=== PATIENT | male | born 1975 | race Caucasian/White ===

== ENCOUNTER → 2016-12-20 | Outpatient (CLI) | payer MEDICARE, OTHER ==
[~2016-12-20] MED LIST: /ACETCOD2T PO; /ROPI5TA PO; /TRAZ10TA PO; ADVAIR; ADVAIR INH; ALLE25CA OR; AMBI10TA OR; AMIT25TA2; AMIT25TA2 OR; ATOR40TA PO; BABY81CH OR; BACL10TA2 OR; BUPR15TA OR; BYDU1INJ SC; CELE40TA; CEPH500C OR; CLAR5CHW OR; CLON0.2T; CLON0.2T OR; COLA100C2 OR; CYCL10TA PO; CYCL10TA3 PO; DIAZ10TA2 OR; DILA4TAB PO; EFFE150C OR; EFFE75CA75 PO; FLEXERIL; FLEXERIL PO; GABA100C PO; GABA300C2 PO; GLIPIZIDE PO; HYDR25TA6; HYDR25TA6 OR; HYDR4TAB; HYDR4TAB PO; IBUP600T OR; LANTINJ4 SC; LISI40TA OR; META800T82 PO; METF500T4 OR; MIRA0.5T PO; MORP15TA2 PO; MORP15TA4 OR; MORP20CA PO; MORP30TA4 OR; MS C; MS C30TA2; MS IR OR; OXYC10TA97 OR; PERC5TAB8 PO; PRIL20CA OR; SKEL800T5 PO; SOMA350T; SOMA350T OR; TRAM50TA2; TRAM50TA2 OR; TRIC145T19 OR; TYLENOL #3; VALI5TAB PO; VICODINES TAB OR; VOLT1GEL EX; endocet PO; kadian PO; sudafed OR
--- NOTE | 2016-12-20 23:41 | ECWPNPC ---
PATIENT NAME: SERGIO WHITE : 1975 GENDER: MALE VISIT DATE: 12/20/2016 DISCHARGE DATE: 12/20/16 1051 VISIT LOCKED DATE TIME: PHYSICIAN: ZAC BENTON RESOURCE: ZAC BENTON REASON FOR APPOINTMENT 1. BACK HISTORY OF PRESENT ILLNESS HISTORY OF PRESENT ILLNESS: PAIN THE PATIENT DESCRIBES THE PAIN... FALL RISK SCREENING: SCREENING :NO FALLS IN THE PAST YEAR TODAY'S VISIT: NOTES: RATES PAIN TODAY 6/10. HAS BEEN HAVING INCREASED PAIN OVER LAST 3 WEEKS. IS USING HIS PAIN MEDS INFREQUENTLY , AND NO MORE THAN 2 PER DAY. NOTES PAIN IS CONSTANT ACROSS THE LOW BACK AND RADIATES TO THE HIPS. NOTES THAT PROLONGED STANDING OR WALKING INCREASE THE PAIN. STAYES THAT THIS PAIN SIGNIFICANTLY IMPROVED FORLLOWING RADIOFREQUENCY. CURRENT MEDICATIONS TAKING MAGNESIUM 65 MG TABLET 2 ORALLY TWICE DAILY TAKING ASPIR-81 81 MG TABLET DELAYED RELEASE 1 TABLET ORALLY ONCE A DAY TAKING LISINOPRIL 40 MG TABLET 1 TABLET ORALLY ONCE A DAY TAKING METFORMIN HCL 750 MG TABLET 1 TABLET WITH MEALS ORALLY BID TAKING EFFEXOR XR 37.5 MG CAPSULE EXTENDED RELEASE 24 HOUR 1 CAPSULE WITH FOOD ORALLY ONCE A DAY TAKING GLIPIZIDE 10 MG TABLET 1 TABLET ORALLY ONCE A DAY TAKING VENTOLIN HFA 108 (90 BASE) MCG/ACT AEROSOL SOLUTION 2 PUFFS NEEDED INHALATION EVERY 4 HRS TAKING TOUJEO SOLOSTAR 300 UNIT/ML SOLUTION PEN-INJECTOR 110 UNITS SUBCUTANEOUS ONCE DAILY TAKING CLARITIN 10 MG TABLET 1 TABLET ORALLY ONCE A DAY TAKING AMBIEN 10 MG TABLET 1 TABLET AT BEDTIME NEEDED ORALLY QHS TAKING LANTUS SOLOSTAR 100 UNIT/ML SOLUTION PEN-INJECTOR 100 UNITS SUBCUTANEOUS DAILY TAKING TIZANIDINE HCL 4 MG TABLET 1 TABLET NEEDED ORALLY THREE TIMES A DAY TAKING TYLENOL/CODEINE #3 300-30 MG TABLET 1 TABLET ORALLY EVERY 6 HRS PRN PAIN MDD=4 TAKING PRAMIPEXOLE DIHYDROCHLORIDE 1.5 MG TABLET 1 TABLET ORALLY TAKE AT 7 PM AND 11 PM MDD=2 TAKING POTASSIUM 99 MG TABLET 1 TABLET ORALLY ONCE A DAY NOT-TAKING ZOLPIDEM TARTRATE 10 MG TABLET 1 TABLET ORALLY AT BEDTIME MDD=1 NOT-TAKING COLACE 100 MG CAPSULE 1 CAPSULE NEEDED ORALLY TWO TIMES A DAY MEDICATION LIST REVIEWED AND RECONCILED WITH THE PATIENT PAST MEDICAL HISTORY DIABETES CHRONIC BACK PAIN HYPERTENSION RYLAN ASTHMA ALLERGIES N.K.D.A. SOCIAL HISTORY GENERAL: TOBACCO USE ARE YOU A:NONSMOKER LEARNING BARRIERS / SPECIAL NEEDS ORIENTED TO PLAN OF CARE: PATIENT, PAIN MANAGEMENT PATIENT, ORIENTED TO PLAN OF CARE: PATIENT, PAIN MANAGEMENT PATIENT. NEW PATIENT PAIN DIARY TODAY'S VISITNOTES FROM 0-10, WHAT LEVEL IS YOUR PAIN TODAY?0 PAIN CLINIC PFS, CLERGY, PUBLIC HEALTH REFERRALS PFS REFERRAL NEEDED?NO CLERGY REFERRAL NEEDED?NO PUBLIC HEALTH REFERRAL NEEDED?NO WAS THE PROVIDER NOTIFIED OF ANY PERTINENT INFO?NO PFS REFERRAL NEEDED?NO CLERGY REFERRAL NEEDED?NO PUBLIC HEALTH REFERRAL NEEDED?NO WAS THE PROVIDER NOTIFIED OF ANY PERTINENT INFO?NO REVIEW OF SYSTEMS CONSTITUTIONAL: ANY CHANGE IN YOUR MEDICAL CONDITION? NO . CHILLS NO . FEVER NO . INFECTION: DO YOU HAVE NEW INFECTIONS? NO . DO YOU HAVE HISTORY OF MRSA? NO . MUSCULOSKELETAL: ANY NEW PATTERNS OF PAIN OR NUMBNESS? NO . GASTROENTEROLOGY: ANY NEW CHANGE IN BOWEL CONTROL? NO . GENITOURINARY: ANY NEW CHANGE IN BLADDER CONTROL? NO . IS THERE A CHANCE YOU COULD BE ? NO . HEMATOLOGY/LYMPH: DO YOU TAKE ANY BLOOD THINNERS? (FOR EXAMPLE- COUMADIN, PLAVIX, AGGRENOX, PLATEL, PRADAXA, OR XARELTO) NO . WHEN WAS YOUR LAST DOSE? DATE: TIME: . NEUROLOGY: HAVE YOU FALLEN IN THE PAST 6 MONTHS? NO . ANY NEW EXTREMITY NUMBNESS OR WEAKNESS? NO . CARDIOLOGY: DO YOU HAVE A PACEMAKER OR DEFIBRILLATOR? NO . RESPIRATORY: SLEEP APNEA FINALLY RECEIVING REATMENT WITH CPAP. OLERATING WELL - SLEEPING THROUGH THE NIGHT AND NO FURTHER EPISODES OF SUDDEN SLEEP IN THE DAY . HAVE YOU BEEN SICK IN THE PAST WEEK? NO . FEVER NO . FLU LIKE SYMPTOMS? NO . CPAP YES - HAVING SOME TROUBLE WITH SKIN IRRITATION SECONDARY TO CPAP MSK . COUGH NO . INTEGUMENTARY: DO YOU HAVE ANY RASHES OR OPEN SORES? NO . ALLERGIC/IMMUNO: ARE YOU ALLERGIC TO SHELLFISH OR IV DYE? NO . ANY NEW ALLERGIES? NO . PSYCHIATRIC: DO YOU HAVE THOUGHTS OF HURTING YOURSELF OR SOMEONE ELSE? NO . ARE YOU ABUSED, NEGLECTED, OR IN AN UNSAFE ENVIRONMENT? NO . ENDOCRINOLOGY: ARE YOU DIABETIC? YES . OTHER: DO YOU NEED ANY PRESCRIPTIONS? NO . IF YES, PLEASE LIST: ____ . ANY NEW PROBLEMS WITH YOUR MEDICATIONS? NO . WHEN DID YOU LAST EAT? ____ . WHEN DID YOU LAST DRINK? ____ . WHAT DID YOU LAST DRINK? ____ . NAME OF PERSON DRIVING YOU HOME? ____ . DO YOU HAVE ANY OTHER QUESTIONS OR CONCERNS NO . REVIEWED BY: PROVIDER: ZAC TSAI . VITAL SIGNS WT 387 LBS, HT 76.5 IN, BMI 46.49 INDEX, BP 169/98 MM HG, HR 109 /MIN, RR 20 /MIN, TEMP 98.0 F, OXYGEN SAT % 96%, NA INITIALS SC 10:14. EXAMINATION GENERAL EXAMINATION: PSYCHALERT , ORIENTED X 3 , TALKATIVE. VERY ALERT TODAY. FACE:REDNESS OVER CHEEK L>R AND HEALING LESION LEFT CHECK. LUNGS:CLEAR TO AUSCULTATION BILATERALLY. HEART:HEART RATE REGULAR. MUSCULOSKELETAL:ABLE TO STAND SLOWLY. POSTURE UPRIGHT., TRIGGER POINTS:, ELICITED WITH PALPATION OVER LUMBAR PARAVERTEBRAL MUSCLES AND INTO THE SACRUM. RESTRICTION OF ROM IN THIS AREA. GAIT STIFF, ANTALGIC. NO FOOT DROP. POINT TENDERENESS OVER LUMBAR FACETS AND PARAVERTEBRAL MUSCLES., L>R. 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 RECOMMEND REMOVING ALL THROW RUGS. 2. RECOMMEND NIGHT LIGHTS 3. RECOMMEND WEARING RUBBER SOLED SHOES AND TO NOT GO BAREFOOT. 4.. ADVISED TO CHANGE POSITION SLOWLY FROM SUPINE TO STANDING TO AVOID DIZZINESS. 5. ADVISED TO USE ASSISTIVE DEVICE SUCH CANE OR WALKER 6. USE LIFELINE SERVICES OR KEEP PORTABLE PHONE READILY AVAILABLE, CONTINUE USE OF CPAP WHICH IS IMPROVING DAYTIME WAKEFULNESS. #128 - SCREENING BMI AND F/U PLAN IN : BMI ABOVE NORMAL TODAY. DISCUSSED WITH PATIENT NUTRITIONAL FOOD CHOICES TO ASSIST WITH WEIGHT LOSS. RECCOMMENDED REDUCING SALT, SUGAR, SODA INTAKE. RECOMMEND INCREASE ACTIVITY TO INCLUDE WALKING ON A REGULAR BASIS. CLINICAL NOTES: ISTOP REGISTRY REVIEWED AND DEMNOSTRATES COMPLLIANCE. PROCEDURE CODES FA211 ESTABILISHED PATIENT [facility] FACILITY CHARGE W2777 BP SCR PRFRM RCMDD DEFIND SCR INTVL G8730 PAIN ASSESS POS TOOL F/U PLAN DOC 3016F PT SCRND UNHLTHY [place] USE 1124F ACP DISCUSS-NO DSCNMKR DOCD 1036F TOBACCO NON-USER 0518F FALL PLAN OF CARE DOCD G8427 DOC MEDS VERIFIED W/PT OR RE G8417 BMI >=30 CALCUATE W/FOLLOWUP 3288F FALL RISK ASSESSMENT DOCD DISPOSITION & COMMUNICATION FOLLOW UP ONE WEEK AFTER DIAGNOSTIC BLOCK (REASON: CHECK AUTH FOR DIAGNOSTIC LUMBAR FACET BLOCK LEFT) ELECTRONICALLY SIGNED BY JUANI DIALLO ON 12/20/2016 AT 11:57 AM EST DISCLAIMER : THIS IS A VISIT SUMMARY EXTRACTED FROM THE [employer] CHART. IT IS NOT A COPY OF THE [employer] PROGRESS NOTE. MASOOD
== END ==
LOC: M PAIN 10:00
PROVIDERS: ATTEND Nurse Practitioner Family
DX: Z09 Encounter for follow-up examination after completed treatment for conditions other than malignant neoplasm (principal); G89.29 Other chronic pain; M46.96 Unspecified inflammatory spondylopathy, lumbar region; M79.1 Myalgia; E11.9 Type 2 diabetes mellitus without complications; I10 Essential (primary) hypertension; G47.30 Sleep apnea, unspecified; J45.909 Unspecified asthma, uncomplicated; Z79.82 Long term (current) use of aspirin; Z79.84 Long term (current) use of oral hypoglycemic drugs; Z79.899 Other long term (current) drug therapy

== ENCOUNTER → 2017-01-13 | Outpatient (CLI) | payer MEDICARE, OTHER ==
[~2017-01-13] MED LIST changes: +BUPIVACAINE HCL 0.25% 30 ML VIAL As Ordered ONE; +ISOVUE-M 300 61% 15ML VIAL (Q9967) As Ordered ONE; +LIDOCAINE 1% SDV INJ 30 ML VIAL As Ordered ONE
--- NOTE | 2017-01-13 16:18 | REP ---
FACET BLOCK: The images were reviewed with Dr. Zee. The patient has a history of back pain. The portable C-Arm was provided in the OR for Dr. Stubbs for fluoroscopic guidance. Four intraoperative spot films were obtained for needle placement verification for left lumbar facet injection. The films are on the PACs system and are available for review. 21 seconds of fluoroscopy time was utilized for this procedure. Reviewed by RANCHO Wilder 01/13/2017 04:27 PEdited and Signed by Eleazar Zee MD 01/14/2017 01:14 P
--- NOTE | 2017-01-18 02:13 | ECWPNPC ---
PATIENT NAME: SERGIO WHITE : 1975 GENDER: MALE VISIT DATE: 01/13/2017 DISCHARGE DATE: 01/13/17 1019 VISIT LOCKED DATE TIME: PHYSICIAN: JEANNETTE WALL RESOURCE: JEANNETTE WALL REASON FOR APPOINTMENT 1. DIAGNOSTIC FACET CURRENT MEDICATIONS TAKING MAGNESIUM 65 MG TABLET 2 ORALLY TWICE DAILY, NOTES: 01-12-172199 TAKING ASPIR-81 81 MG TABLET DELAYED RELEASE 1 TABLET ORALLY ONCE A DAY, NOTES: 01-12-172199 TAKING LISINOPRIL 40 MG TABLET 1 TABLET ORALLY ONCE A DAY, NOTES: 01-12-172199 TAKING METFORMIN HCL 750 MG TABLET 1 TABLET WITH MEALS ORALLY BID, NOTES: 2199 TAKING EFFEXOR XR 37.5 MG CAPSULE EXTENDED RELEASE 24 HOUR 1 CAPSULE WITH FOOD ORALLY ONCE A DAY, NOTES: 01-12-17899 TAKING GLIPIZIDE 10 MG TABLET 1 TABLET ORALLY ONCE A DAY, NOTES: 01-12-17799 TAKING VENTOLIN HFA 108 (90 BASE) MCG/ACT AEROSOL SOLUTION 2 PUFFS NEEDED INHALATION EVERY 4 HRS, NOTES: 12-22-16899 TAKING TOUJEO SOLOSTAR 300 UNIT/ML SOLUTION PEN-INJECTOR 110 UNITS SUBCUTANEOUS ONCE DAILY, NOTES: 01-12-17799 TAKING CLARITIN 10 MG TABLET 1 TABLET ORALLY ONCE A DAY, NOTES: 01-12-17799 TAKING AMBIEN 10 MG TABLET 1 TABLET AT BEDTIME NEEDED ORALLY QHS, NOTES: 01-12-172199 TAKING LANTUS SOLOSTAR 100 UNIT/ML SOLUTION PEN-INJECTOR 100 UNITS SUBCUTANEOUS DAILY, NOTES: 01-12-171829 TAKING PRAMIPEXOLE DIHYDROCHLORIDE 1.5 MG TABLET 1 TABLET ORALLY TAKE AT 7 PM AND 11 PM MDD=2, NOTES: 01-12-172199 TAKING POTASSIUM 99 MG TABLET 1 TABLET ORALLY ONCE A DAY, NOTES: 01-12-172199 TAKING TIZANIDINE HCL 4 MG TABLET 1 TABLET NEEDED ORALLY THREE TIMES A DAY, NOTES: 01-12-172199 TAKING TYLENOL/CODEINE #3 300-30 MG TABLET 1 TABLET ORALLY EVERY 6 HRS PRN PAIN MDD=4, NOTES: 01-12-172199 NOT-TAKING ZOLPIDEM TARTRATE 10 MG TABLET 1 TABLET ORALLY AT BEDTIME MDD=1 NOT-TAKING COLACE 100 MG CAPSULE 1 CAPSULE NEEDED ORALLY TWO TIMES A DAY MEDICATION LIST REVIEWED AND RECONCILED WITH THE PATIENT PAST MEDICAL HISTORY DIABETES CHRONIC BACK PAIN HYPERTENSION RYLAN ASTHMA ALLERGIES N.K.D.A. VITAL SIGNS WT 401.2 LBS, HT 76.5 IN, BMI 48.19 INDEX, BP 181/93 MM HG, HR 106 /MIN, RR 18 /MIN, TEMP 98.5 F, OXYGEN SAT % 98, NA INITIALS TL 0859, REVIEWED BY: KGPT WEIGHED ON PMC SCALE. ASSESSMENTS SPONDYLOSIS WITHOUT MYELOPATHY OR RADICULOPATHY, LUMBAR REGION - M47.816 (PRIMARY) SPONDYLOSIS WITHOUT MYELOPATHY OR RADICULOPATHY, LUMBOSACRAL REGION - M47.817 PROCEDURES PN LUMBAR FACET BLOCK DIAGNOSTIC PRE PROCEDURE DIAGNOSIS LUMBAR SPONDYLOSIS, LUMBAR SPONDYLOSIS POST PROCEDURE DIAGNOSIS LUMBAR SPONDYLOSIS, LUMBOSACRAL SPONDYLOSIS PROCEDURE LEFT L4-L5 AND LEFT L5-S1 FACET BLOCK DIAGNOSTIC NUMBER #[address] JEANNETTE WALL SHORE MAN NONE ANESTHESIA LOCAL PRE PROCEDURE NOTE THE PATIENT WITH HISTORY OF CHRONIC LOW BACK PAIN. I EVALUATED THE PATIENT AND REVIEWED THE CHART. I WENT OVER THE RISKS, ALTERNATIVES, AND BENEFITS ASSOCIATED WITH THIS PROCEDURE. THE PATIENT WOULD LIKE TO PROCEED AND GAVE CONSENT TO PERFORM THE PROCEDURE. AGREED WITH THE PATIENT WE ARE DOING THIS PROCEDURE TO DETERMINE IF THE PATIENT IS A CANDIDATE FOR A RADIOFREQUENCY ABLATION OF THE FACETS JOINTS. THE PATIENT DENIES UNEXPLAINABLE WEIGHT LOSS, FEVER, CHILLS, OR NEW CHANGES IN URINARY OR BOWEL CONTROL DESCRIPTION OF PROCEDURE THE PATIENT WAS BROUGHT TO THE PROCEDURE ROOM AND PLACED IN THE PRONE POSITION. THE LUMBOSACRAL AREA WAS CLEANED WITH CHLORAPREP SOLUTION AND DRAPED ASEPTICALLY. THE PROCEDURE WAS DONE UNDER STERILE CONDITIONS. I CHECKED LATERALITY AND THE LEVEL WHERE THE PROCEDURE WAS GOING TO BE PERFORMED WITH THE PATIENT AND THE SUPPORTING STAFF AT THE MOMENT OF THE TIME OUT IN THE PROCEDURE ROOM. UNDER FLUOROSCOPIC GUIDANCE, TARGETS WERE SELECTED AT THE INTERSECTION OF THE LEFT TRANSVERSE PROCESS OF L4, L5 AND ALA OF S1 WITH ITS RESPECTIVE SUPERIOR ARTICULAR PROCESS. LIDOCAINE WAS USED TO NUMB THE SKIN AND THE SUBCUTANEOUS TISSUE BELOW IT. SPINAL NEEDLE, 22-GAUGE WAS ADVANCED UNDER FLUOROSCOPIC GUIDANCE AND FOLLOWING PATIENT FEEDBACK UNTIL THE TARGETS WERE REACHED. POSITION OF THE NEEDLES WAS VERIFIED WITH AP AND LATERAL VIEWS. AFTER PROPER POSITION OF THE NEEDLES WAS ACHIEVED, ISOVUE-M DYE 30% 0.1 ML WAS INJECTED AT EACH SITE SHOWING ADEQUATE SPREAD OF THE DYE. THEN A SOLUTION OF 0.4 ML OF BUPIVACAINE 0.25% WAS INJECTED AT EACH SITE. THERE WAS NO EVIDENCE OF BLOOD, PARESTHESIA OR CEREBROSPINAL FLUID DURING THE PROCEDURE. THE PATIENT WAS SENT TO THE RECOVERY ROOM. THE PATIENT WAS MOVING THE EXTREMITIES AND DOING WELL. THERE WAS NO COMPLICATION DURING THE PROCEDURE. FLUOROSCOPY TIME WAS 21 SECONDS POST PROCEDURE NOTE THE PATIENT WILL DOCUMENT HIS PAIN LEVEL AND RESPONSE TO THIS PROCEDURE EVERY 30 MINUTES. THE PATIENT WILL BE SEEN IN A FOLLOW UP IN THE NEXT FEW WEEKS. FURTHER DETERMINATION FOR HIS CASE WILL BE DONE AT THE NEXT VISIT. INSTRUCTIONS WERE GIVEN, QUESTIONS WERE ANSWERED, AND THE PATIENT EXPRESSED UNDERSTANDING AND AGREED WITH THE PLAN. I, JON ZAVALA, DOCUMENTED THE ABOVE INFORMATION ACTING A SCRIBE FOR DR. WALL. I HAVE REVIEWED THE ABOVE DOCUMENT, WRITTEN BY JON ZAVALA SCRIBE AND I VERIFY THAT IT IS [facility] FACET BLOCK (PAIN)[id number] PROCEDURE CODES 77839 INJ PARAVERT F JNT L/S 1 LEV 36751 INJ PARAVERT F JNT L/S 2 LEV 6045F RADXPS IN END [id number] PXD DISPOSITION & COMMUNICATION FOLLOW UP 3 WEEKS ELECTRONICALLY SIGNED BY JEANNETTE WALL MD ON 01/17/2017 AT 05:51 PM EDT DISCLAIMER : THIS IS A VISIT SUMMARY EXTRACTED FROM THE [employer] CHART. IT IS NOT A COPY OF THE [employer] PROGRESS NOTE. MTDD
== END | disposition home or self-care (01) ==
LOC: M PAIN 08:40
PROVIDERS: ATTEND Anesthesiology
DX: G89.29 Other chronic pain (principal); M47.816 Spondylosis without myelopathy or radiculopathy, lumbar region; M47.817 Spondylosis without myelopathy or radiculopathy, lumbosacral region; E11.9 Type 2 diabetes mellitus without complications; I10 Essential (primary) hypertension; J45.909 Unspecified asthma, uncomplicated; G47.33 Obstructive sleep apnea (adult) (pediatric); M79.1 Myalgia; Z79.899 Other long term (current) drug therapy; Z79.82 Long term (current) use of aspirin; Z79.84 Long term (current) use of oral hypoglycemic drugs; Z79.4 Long term (current) use of insulin
CPT/HCPCS: 64493; 64494; Q9967

== ENCOUNTER → 2017-02-09 | Outpatient (CLI) | payer MEDICARE, OTHER ==
[~2017-02-09] MED LIST changes: -BUPIVACAINE HCL 0.25% 30 ML VIAL As Ordered ONE; -ISOVUE-M 300 61% 15ML VIAL (Q9967) As Ordered ONE; -LIDOCAINE 1% SDV INJ 30 ML VIAL As Ordered ONE
--- NOTE | 2017-02-24 00:38 | ECWPNPC ---
PATIENT NAME: SERGIO WHTIE : 1975 GENDER: MALE VISIT DATE: 02/09/2017 DISCHARGE DATE: 02/09/17 1545 VISIT LOCKED DATE TIME: PHYSICIAN: ZAC BENTON RESOURCE: ZAC BENTON REASON FOR APPOINTMENT 1. BACK HISTORY OF PRESENT ILLNESS HISTORY OF PRESENT ILLNESS: PAIN THE PATIENT DESCRIBES THE PAIN... THE PATIENT DESCRIBES THE PAIN... PAIN THE PATIENT DESCRIBES THE PAIN... THE PATIENT DESCRIBES THE PAIN... FALL RISK SCREENING: SCREENING :NO FALLS IN THE PAST YEAR :NO FALLS IN THE PAST YEAR SCREENING :NO FALLS IN THE PAST YEAR :NO FALLS IN THE PAST YEAR TODAY'S VISIT: NOTES: IS S/P LEFT DIAGNOSTIC LUMBAR FACET BLOCK ON 01/13/17 PAIN PRIOR 04/02 - POST TREATMENT - DESCRIBES "GREAT" REFIEF WITH PAIN DECREASING TO 2-3/10 FOR 3 DAYS. WAS ABLE TO BE ACTIVE AND FUNCTION ABOUT HIS HOME. NO RECENT FALLS.. CURRENT MEDICATIONS TAKING MAGNESIUM 65 MG TABLET 2 ORALLY TWICE DAILY TAKING ASPIR-81 81 MG TABLET DELAYED RELEASE 1 TABLET ORALLY ONCE A DAY TAKING LISINOPRIL 40 MG TABLET 1 TABLET ORALLY ONCE A DAY TAKING METFORMIN HCL 750 MG TABLET 1 TABLET WITH MEALS ORALLY BID TAKING GLIPIZIDE 10 MG TABLET 1 TABLET ORALLY ONCE A DAY TAKING VENTOLIN HFA 108 (90 BASE) MCG/ACT AEROSOL SOLUTION 2 PUFFS NEEDED INHALATION EVERY 4 HRS TAKING TOUJEO SOLOSTAR 300 UNIT/ML SOLUTION PEN-INJECTOR 110 UNITS SUBCUTANEOUS ONCE DAILY TAKING CLARITIN 10 MG TABLET 1 TABLET ORALLY ONCE A DAY TAKING AMBIEN 10 MG TABLET 1 TABLET AT BEDTIME NEEDED ORALLY QHS TAKING LANTUS SOLOSTAR 100 UNIT/ML SOLUTION PEN-INJECTOR 100 UNITS SUBCUTANEOUS DAILY TAKING PRAMIPEXOLE DIHYDROCHLORIDE 1.5 MG TABLET 1 TABLET ORALLY TAKE AT 7 PM AND 11 PM MDD=2 TAKING POTASSIUM 99 MG TABLET 1 TABLET ORALLY ONCE A DAY TAKING TIZANIDINE HCL 4 MG TABLET 1 TABLET NEEDED ORALLY THREE TIMES A DAY TAKING TYLENOL WITH CODEINE #3 300-30 MG TABLET 1 TABLET ORALLY EVERY 6 HRS PRN PAIN MDD=4 NOT-TAKING EFFEXOR XR 37.5 MG CAPSULE EXTENDED RELEASE 24 HOUR 1 CAPSULE WITH FOOD ORALLY ONCE A DAY NOT-TAKING ZOLPIDEM TARTRATE 10 MG TABLET 1 TABLET ORALLY AT BEDTIME MDD=1 NOT-TAKING COLACE 100 MG CAPSULE 1 CAPSULE NEEDED ORALLY TWO TIMES A DAY MEDICATION LIST REVIEWED AND RECONCILED WITH THE PATIENT PAST MEDICAL HISTORY DIABETES CHRONIC BACK PAIN HYPERTENSION RYLAN ASTHMA ALLERGIES N.K.D.A. SOCIAL HISTORY GENERAL: PAIN CLINIC PFS, CLERGY, PUBLIC HEALTH REFERRALS CLERGY REFERRAL NEEDED?NO WAS THE PROVIDER NOTIFIED OF ANY PERTINENT INFO?NO PFS REFERRAL NEEDED?NO PUBLIC HEALTH REFERRAL NEEDED?NO CLERGY REFERRAL NEEDED?NO WAS THE PROVIDER NOTIFIED OF ANY PERTINENT INFO?NO PFS REFERRAL NEEDED?NO PUBLIC HEALTH REFERRAL NEEDED?NO PATIENT: ____, ____. REVIEW OF SYSTEMS CONSTITUTIONAL: ANY CHANGE IN YOUR MEDICAL CONDITION? NO, NO . CHILLS NO, NO . FEVER NO, NO . INFECTION: DO YOU HAVE NEW INFECTIONS? NO, NO . DO YOU HAVE HISTORY OF MRSA? NO, NO . MUSCULOSKELETAL: ANY NEW PATTERNS OF PAIN OR NUMBNESS? NO, NO . GASTROENTEROLOGY: ANY NEW CHANGE IN BOWEL CONTROL? NO, NO . GENITOURINARY: ANY NEW CHANGE IN BLADDER CONTROL? NO, NO . IS THERE A CHANCE YOU COULD BE ? NO, NO . HEMATOLOGY/LYMPH: DO YOU TAKE ANY BLOOD THINNERS? (FOR EXAMPLE- COUMADIN, PLAVIX, AGGRENOX, PLATEL, PRADAXA, OR XARELTO) NO, NO . WHEN WAS YOUR LAST DOSE? DATE: TIME: , DATE: TIME: . NEUROLOGY: HAVE YOU FALLEN IN THE PAST 6 MONTHS? NO, NO . ANY NEW EXTREMITY NUMBNESS OR WEAKNESS? NO, NO . CARDIOLOGY: DO YOU HAVE A PACEMAKER OR DEFIBRILLATOR? NO, NO . RESPIRATORY: HAVE YOU BEEN SICK IN THE PAST WEEK? NO, NO . FEVER NO, NO . FLU LIKE SYMPTOMS? NO, NO . COUGH NO, NO . INTEGUMENTARY: DO YOU HAVE ANY RASHES OR OPEN SORES? NO, NO . ALLERGIC/IMMUNO: ARE YOU ALLERGIC TO SHELLFISH OR IV DYE? NO, NO . ANY NEW ALLERGIES? NO, NO . PSYCHIATRIC: DO YOU HAVE THOUGHTS OF HURTING YOURSELF OR SOMEONE ELSE? NO, NO . ARE YOU ABUSED, NEGLECTED, OR IN AN UNSAFE ENVIRONMENT? NO, NO . ENDOCRINOLOGY: ARE YOU DIABETIC? YES, STABLE - RUNNING LOW 136-140 BS . OTHER: DO YOU NEED ANY PRESCRIPTIONS? NO, NO . IF YES, PLEASE LIST: ____, ____ . ANY NEW PROBLEMS WITH YOUR MEDICATIONS? NO, NO . WHEN DID YOU LAST EAT? ____, ____ . WHEN DID YOU LAST DRINK? ____, ____ . WHAT DID YOU LAST DRINK? ____, ____ . NAME OF PERSON DRIVING YOU HOME? ____, ____ . DO YOU HAVE ANY OTHER QUESTIONS OR CONCERNS NO, NO . REVIEWED BY: PROVIDER: ZAC TSAI . VITAL SIGNS WT 397.8 LBS, HT 76.5 IN, BMI 47.79 INDEX, BP 145/93 MM HG, HR 117 /MIN, RR 20 /MIN, TEMP 99.0 F, OXYGEN SAT % 96%, NA INITIALS AW 1403. EXAMINATION GENERAL EXAMINATION: PSYCHALERT , ORIENTED X 3 , TALKATIVE. VERY ALERT TODAY. FACE:REDNESS ON RIGHT EAR/ LESION. LUNGS:CLEAR TO AUSCULTATION BILATERALLY. HEART:HEART RATE REGULAR. MUSCULOSKELETAL:ABLE TO STAND SLOWLY. POSTURE UPRIGHT., TRIGGER POINTS:, ELICITED WITH PALPATION OVER LUMBAR PARAVERTEBRAL MUSCLES AND INTO THE SACRUM. RESTRICTION OF ROM IN THIS AREA. GAIT STIFF, ANTALGIC. NO FOOT DROP. POINT TENDERENESS OVER LUMBAR FACETS AND PARAVERTEBRAL MUSCLES., L>R. ASSESSMENTS SPONDYLOSIS WITHOUT MYELOPATHY OR RADICULOPATHY, LUMBAR REGION - M47.816 (PRIMARY) MYALGIA - M79.1 SPONDYLOSIS WITHOUT MYELOPATHY OR RADICULOPATHY, LUMBOSACRAL REGION - M47.817 TREATMENT SPONDYLOSIS WITHOUT MYELOPATHY OR RADICULOPATHY, LUMBAR REGION REFILL TYLENOL WITH CODEINE #3 TABLET, 300-30 MG, 1 TABLET, ORALLY, EVERY 6 HRS PRN PAIN MDD=4, 14 DAY(S), 60, REFILLS 0 RF FACET LUMBAR SACRAL KENNETHZAC COLBY Alyson 02/09/2017 2:21:21 PM > RFI LEFT L4-5, L5-S1 NOTES: TENNIS BALL TO MID BACK. STRETCH BACKWARD OVER FLAT SURFACE WITH PILLOWS UNDER BACK. ICE/HEAT TO MID BACK. CONTINUE MEDS AND WEAN AFTER RADIOFREQUENCY. PROCEDURE CODES FA211 ESTABILISHED PATIENT [facility] FACILITY CHARGE O7827 PAIN ASSESS POS TOOL F/U PLAN DOC G8427 DOC MEDS VERIFIED W/PT OR RE DISPOSITION & COMMUNICATION FOLLOW UP AFTER INJECTION (REASON: CHECK AUTH FOFR LEFT L4-5, L5-S1 RADIOFREQ.) ELECTRONICALLY SIGNED BY JUANI DIALLO ON 02/23/2017 AT 09:23 AM EDT DISCLAIMER : THIS IS A VISIT SUMMARY EXTRACTED FROM THE [employer] CHART. IT IS NOT A COPY OF THE [employer] PROGRESS NOTE. MASOOD
== END ==
LOC: M PAIN 14:00
PROVIDERS: ATTEND Nurse Practitioner Family
DX: M47.816 Spondylosis without myelopathy or radiculopathy, lumbar region (principal); M79.1 Myalgia; M47.817 Spondylosis without myelopathy or radiculopathy, lumbosacral region; E11.9 Type 2 diabetes mellitus without complications; I10 Essential (primary) hypertension; G47.33 Obstructive sleep apnea (adult) (pediatric); J45.909 Unspecified asthma, uncomplicated; Z79.82 Long term (current) use of aspirin; Z79.84 Long term (current) use of oral hypoglycemic drugs; Z79.51 Long term (current) use of inhaled steroids; Z79.899 Other long term (current) drug therapy

== ENCOUNTER → 2017-02-28 | Outpatient (CLI) | payer MEDICARE, OTHER ==
[~2017-02-28] MED LIST changes: +BUPIVACAINE HCL 0.25% 30 ML VIAL As Ordered ONE; +ISOVUE-M 300 61% 15ML VIAL (Q9967) As Ordered ONE; +LIDOCAINE 1% SDV INJ 30 ML VIAL As Ordered ONE; +TRIAMCINOLONE ACETONIDE SUSP 40 MG/ML VIAL (J3301) As Ordered ONE
--- NOTE | 2017-02-28 17:48 | REP ---
Partial lumbar spine series: Three views: History: Injection procedure for pain. 47 seconds of fluoroscopy time is reported. Findings: A sequence of three fluoroscopically obtained intraprocedural spot radiographs of the lumbar spine document various needle positions and contrast injections associated with facet injection procedure. Signed by Jose Campos MD 02/28/2017 06:21 P
--- NOTE | 2017-03-06 23:50 | ECWPNPC ---
PATIENT NAME: SERGIO WHITE : 1975 GENDER: MALE VISIT DATE: 02/28/2017 DISCHARGE DATE: 02/28/17 1405 VISIT LOCKED DATE TIME: PHYSICIAN: JEANNETTE WALL RESOURCE: JEANNETTE WALL REASON FOR APPOINTMENT 1. RF HISTORY OF PRESENT ILLNESS HISTORY OF PRESENT ILLNESS: PAIN THE PATIENT DESCRIBES THE PAIN... FALL RISK SCREENING: SCREENING :NO FALLS IN THE PAST YEAR CURRENT MEDICATIONS TAKING MAGNESIUM 65 MG TABLET 2 ORALLY TWICE DAILY, NOTES: 02/27 9PM TAKING ASPIR-81 81 MG TABLET DELAYED RELEASE 1 TABLET ORALLY ONCE A DAY, NOTES: 02/27 7AM TAKING LISINOPRIL 40 MG TABLET 1 TABLET ORALLY ONCE A DAY, NOTES: 02/27 9PM TAKING METFORMIN HCL 750 MG TABLET 1 TABLET WITH MEALS ORALLY BID, NOTES: 02/27 9PM TAKING GLIPIZIDE 10 MG TABLET 1 TABLET ORALLY ONCE A DAY, NOTES: 02/27 7AM TAKING VENTOLIN HFA 108 (90 BASE) MCG/ACT AEROSOL SOLUTION 2 PUFFS NEEDED INHALATION EVERY 4 HRS, NOTES: 02/28 10AM TAKING TOUJEO SOLOSTAR 300 UNIT/ML SOLUTION PEN-INJECTOR 110 UNITS SUBCUTANEOUS ONCE DAILY, NOTES: 02/27 7PM TAKING CLARITIN 10 MG TABLET 1 TABLET ORALLY ONCE A DAY, NOTES: 1 WEEK TAKING AMBIEN 10 MG TABLET 1 TABLET AT BEDTIME NEEDED ORALLY QHS, NOTES: 02/27 9PM TAKING LANTUS SOLOSTAR 100 UNIT/ML SOLUTION PEN-INJECTOR 100 UNITS SUBCUTANEOUS DAILY, NOTES: 02/27 7PM TAKING PRAMIPEXOLE DIHYDROCHLORIDE 1.5 MG TABLET 1 TABLET ORALLY TAKE AT 7 PM AND 11 PM MDD=2, NOTES: 02/27 10PM TAKING POTASSIUM 99 MG TABLET 1 TABLET ORALLY ONCE A DAY, NOTES: 02/27 9PM TAKING TIZANIDINE HCL 4 MG TABLET 1 TABLET NEEDED ORALLY THREE TIMES A DAY, NOTES: 02/27 9PM TAKING TYLENOL WITH CODEINE #3 300-30 MG TABLET 1 TABLET ORALLY EVERY 6 HRS PRN PAIN MDD=4, NOTES: 02/27 9PM NOT-TAKING EFFEXOR XR 37.5 MG CAPSULE EXTENDED RELEASE 24 HOUR 1 CAPSULE WITH FOOD ORALLY ONCE A DAY NOT-TAKING ZOLPIDEM TARTRATE 10 MG TABLET 1 TABLET ORALLY AT BEDTIME MDD=1 NOT-TAKING COLACE 100 MG CAPSULE 1 CAPSULE NEEDED ORALLY TWO TIMES A DAY MEDICATION LIST REVIEWED AND RECONCILED WITH THE PATIENT PAST MEDICAL HISTORY DIABETES CHRONIC BACK PAIN HYPERTENSION RYLAN ASTHMA ALLERGIES N.K.D.A. REVIEW OF SYSTEMS CONSTITUTIONAL: ANY CHANGE IN YOUR MEDICAL CONDITION? NO . CHILLS NO . FEVER NO . INFECTION: DO YOU HAVE NEW INFECTIONS? NO . DO YOU HAVE HISTORY OF MRSA? NO . MUSCULOSKELETAL: ANY NEW PATTERNS OF PAIN OR NUMBNESS? NO . GASTROENTEROLOGY: ANY NEW CHANGE IN BOWEL CONTROL? NO . GENITOURINARY: ANY NEW CHANGE IN BLADDER CONTROL? NO . IS THERE A CHANCE YOU COULD BE ? NO . HEMATOLOGY/LYMPH: DO YOU TAKE ANY BLOOD THINNERS? (FOR EXAMPLE- COUMADIN, PLAVIX, AGGRENOX, PLATEL, PRADAXA, OR XARELTO) NO . WHEN WAS YOUR LAST DOSE? DATE: TIME: . NEUROLOGY: HAVE YOU FALLEN IN THE PAST 6 MONTHS? NO . ANY NEW EXTREMITY NUMBNESS OR WEAKNESS? NO . CARDIOLOGY: DO YOU HAVE A PACEMAKER OR DEFIBRILLATOR? NO . RESPIRATORY: HAVE YOU BEEN SICK IN THE PAST WEEK? NO . FEVER NO . FLU LIKE SYMPTOMS? NO . COUGH NO . INTEGUMENTARY: DO YOU HAVE ANY RASHES OR OPEN SORES? NO . ALLERGIC/IMMUNO: ARE YOU ALLERGIC TO SHELLFISH OR IV DYE? NO . ANY NEW ALLERGIES? NO . PSYCHIATRIC: DO YOU HAVE THOUGHTS OF HURTING YOURSELF OR SOMEONE ELSE? NO . ARE YOU ABUSED, NEGLECTED, OR IN AN UNSAFE ENVIRONMENT? NO . ENDOCRINOLOGY: ARE YOU DIABETIC? YES, 58 AM FSBS 146 . OTHER: DO YOU NEED ANY PRESCRIPTIONS? NO . IF YES, PLEASE LIST: ____ . ANY NEW PROBLEMS WITH YOUR MEDICATIONS? NO . WHEN DID YOU LAST EAT? 02/27 7PM . WHEN DID YOU LAST DRINK? 02/28 7AM . WHAT DID YOU LAST DRINK? WATER . NAME OF PERSON DRIVING YOU HOME? MOM . DO YOU HAVE ANY OTHER QUESTIONS OR CONCERNS NO . REVIEWED BY: PROVIDER: . VITAL SIGNS WT 397.8 LBS, HT 76.5 IN, BMI 47.79 INDEX, BP 147/98 MM HG, HR 118 /MIN, RR 18 /MIN, TEMP 98.2 F, OXYGEN SAT % 97%, BLOOD GLUCOSE LEVEL 146, SAFE IN ENV? (Y/N) Y, NA INITIALS SC 11:10, REVIEWED BY: DONNELL. ASSESSMENTS SPONDYLOSIS WITHOUT MYELOPATHY OR RADICULOPATHY, LUMBAR REGION - M47.816 (PRIMARY) SPONDYLOSIS WITHOUT MYELOPATHY OR RADICULOPATHY, LUMBOSACRAL REGION - M47.817 PROCEDURES PN RADIOFREQUENCY PRE PROCEDURE DIAGNOSES 1. LUMBAR SPONDYLOSIS. 2. LUMBOSACRAL SPONDYLOSIS POST PROCEDURE DIAGNOSES 1. LUMBAR SPONDYLOSIS. 2. LUMBOSACRAL SPONDYLOSIS PROCEDURE LEFT L4-L5 AND LEFT L5-S1 LUMBAR FACET RADIOFREQUENCY SURGEON DR. JEANNETTE WALL UTILIZATION SPECIALIST NONE ANESTHESIA LOCAL PRE PROCEDURE REPORT THE PATIENT HAS HISTORY OF CHRONIC LOW BACK PAIN. I EVALUATE THE PATIENT AND REVIEWED THE CHART. I WENT OVER THE RISKS, ALTERNATIVES, AND BENEFITS ASSOCIATED WITH THIS PROCEDURE. THE PATIENT WOULD LIKE TO PROCEED AND GIVE CONSENT TO PERFORMED THE PROCEDURE. THE PATIENT DENIES UNEXPLAINABLE WEIGHT LOSS, FEVER, CHILLS, OR NEW CHANGES IN URINARY OR BOWEL CONTROL DESCRIPTION OF PROCEDURE THE PATIENT WAS BROUGHT TO THE PROCEDURE ROOM AND PLACED IN THE PRONE POSITION. THE LUMBOSACRAL AREA WAS CLEANED WITH CHLORAPREP SOLUTION AND DRAPED ASEPTICALLY. THE PROCEDURE WAS DONE UNDER STERILE CONDITIONS. I CHECKED LATERALITY AND THE LEVEL WHERE THE PROCEDURE WAS GOING TO BE PERFORMED WITH THE PATIENT AND THE SUPPORTING STAFF AT THE MOMENT OF THE TIME OUT IN THE PROCEDURE ROOM. UNDER FLUOROSCOPIC GUIDANCE, TARGETS WERE SELECTED AT THE INTERSECTION OF THE LEFT TRANSVERSE PROCESS OF L4, L5 AND ALA OF S1 WITH ITS RESPECTIVE SUPERIOR ARTICULAR PROCESS. LIDOCAINE WAS USED TO NUMB THE SKIN AND THE SUBCUTANEOUS TISSUE BELOW IT. RADIOFREQUENCY NEEDLES 22-GAUGE 15 CM LONG WITH 10 MM ACTIVE CURVE TIP WERE ADVANCED UNDER FLUOROSCOPIC GUIDANCE AND FOLLOWING PATIENT FEEDBACK UNTIL THE TARGET AREA WAS REACHED. POSITION OF THE NEEDLES WAS VERIFIED WITH AP AND LATERAL VIEWS. AFTER PROPER POSITION OF THE NEEDLE WAS ACHIEVED, WE WORKED WITH THE LEFT SELECTED MEDIAN BRANCHES OF L3, L4 AND THE DORSAL RAMI OF L5. WE MEASURED THE CORRESPONDING IMPEDANCES, SENSORY STIMULATION AND MOTOR RESPONSES INDICATED IN THE RADIOFREQUENCY WORK SHEET. POSITION OF THE NEEDLES WAS VERIFIED AGAIN WITH AP AND LATERAL VIEWS. LIDOCAINE 1%, 2 ML, WAS INJECTED AT EACH LEVEL. RADIOFREQUENCY WAS DONE AT EACH LEVEL AT 80 DEGREES FOR 90 SECONDS. AFTER RADIOFREQUENCY WAS DONE, THE PATIENT RECEIVED BUPIVACAINE 0.125% 1 CC WITH KENALOG 5 MG AT EACH SITE. THERE WAS NO EVIDENCE OF BLOOD, PARESTHESIA OR CEREBROSPINAL FLUID DURING THE PROCEDURE. THE PATIENT WAS SENT TO THE RECOVERY ROOM. THE PATIENT WAS MOVING THE EXTREMITIES AND DOING WELL. THERE WAS NO COMPLICATION DURING THE PROCEDURE. FLUOROSCOPY TIME WAS 47 SECONDS POST PROCEDURE NOTE THE PATIENT WILL BE SEEN IN A FOLLOW UP IN THE NEXT FEW WEEKS. INSTRUCTIONS WERE GIVEN, QUESTIONS WERE ANSWERED, AND THE PATIENT EXPRESSED UNDERSTANDING AND AGREES WITH THE PLAN. I, JOSE A CASILLAS, DOCUMENTED THE ABOVE INFORMATION ACTING A SCRIBE FOR DR. WALL. I HAVE REVIEWED THE ABOVE DOCUMENT, WRITTEN BY JOSE A CASILLAS SCRIBE AND I VERIFY THAT IT IS [facility] FACET BLOCK (PAIN)[id number] PROCEDURE CODES 03025 DESTROY LUMB/SAC FACET JNT 00031 DESTROY L/S FACET JNT ADDL 6045F RADXPS IN END [id number] PXD DISPOSITION & COMMUNICATION FOLLOW UP 3 WEEKS ELECTRONICALLY SIGNED BY JEANNETTE WALL MD ON 03/06/2017 AT 01:10 PM EDT DISCLAIMER : THIS IS A VISIT SUMMARY EXTRACTED FROM THE [employer] CHART. IT IS NOT A COPY OF THE [employer] PROGRESS NOTE. MTDD
== END ==
LOC: M PAIN 11:00
PROVIDERS: ATTEND Anesthesiology
DX: G89.29 Other chronic pain (principal); M54.5 Low back pain; M47.816 Spondylosis without myelopathy or radiculopathy, lumbar region; M47.817 Spondylosis without myelopathy or radiculopathy, lumbosacral region; E11.9 Type 2 diabetes mellitus without complications; I10 Essential (primary) hypertension; G47.33 Obstructive sleep apnea (adult) (pediatric); J45.909 Unspecified asthma, uncomplicated; Z79.82 Long term (current) use of aspirin; Z79.84 Long term (current) use of oral hypoglycemic drugs; Z79.51 Long term (current) use of inhaled steroids; Z79.4 Long term (current) use of insulin; Z79.899 Other long term (current) drug therapy
CPT/HCPCS: 64635; 64636; J3301; Q9967

== ENCOUNTER → 2017-03-22 | Outpatient (CLI) | payer MEDICARE, OTHER ==
[~2017-03-22] MED LIST changes: -BUPIVACAINE HCL 0.25% 30 ML VIAL As Ordered ONE; -ISOVUE-M 300 61% 15ML VIAL (Q9967) As Ordered ONE; -LIDOCAINE 1% SDV INJ 30 ML VIAL As Ordered ONE; -TRIAMCINOLONE ACETONIDE SUSP 40 MG/ML VIAL (J3301) As Ordered ONE
--- NOTE | 2017-04-10 23:59 | ECWPNPC ---
PATIENT NAME: SERGIO WHITE : 1975 GENDER: MALE VISIT DATE: 03/22/2017 DISCHARGE DATE: 03/22/17 1519 VISIT LOCKED DATE TIME: PHYSICIAN: ZAC BENTON RESOURCE: ZAC BENTON REASON FOR APPOINTMENT 1. POST RF HISTORY OF PRESENT ILLNESS HISTORY OF PRESENT ILLNESS: PAIN THE PATIENT DESCRIBES THE PAIN... FALL RISK SCREENING: SCREENING :NO FALLS IN THE PAST YEAR TODAY'S VISIT: NOTES: RATES PAIN TODAY 4/10 ON THE LEFT SIDE OF LOW BACK. AND 0/10 ON RIGHT SIDE.. IS S/P RADIOFREQUENCY DENERVATION OF THE RIGHT L3-4, L4-5 AND L5-S1 WITH EXCELLANT PAIN RELIEF RIGHT SIDE. IS VERY PLEASED AND WOULD LIKE TO REPEAT ON THE LEFT SIDE. HE HAS HAD MORE THAN 6 MONTHS EXCELLANT PAIN CONTROL AND IMPROVEMENT IN FUNCTION WITH RADIOFREQUENCY TREATMENT.. CURRENT MEDICATIONS TAKING MAGNESIUM 65 MG TABLET 2 ORALLY TWICE DAILY TAKING ASPIR-81 81 MG TABLET DELAYED RELEASE 1 TABLET ORALLY ONCE A DAY TAKING LISINOPRIL 40 MG TABLET 1 TABLET ORALLY ONCE A DAY TAKING METFORMIN HCL 750 MG TABLET 1 TABLET WITH MEALS ORALLY BID TAKING GLIPIZIDE 10 MG TABLET 1 TABLET ORALLY ONCE A DAY TAKING VENTOLIN HFA 108 (90 BASE) MCG/ACT AEROSOL SOLUTION 2 PUFFS NEEDED INHALATION EVERY 4 HRS TAKING TOUJEO SOLOSTAR 300 UNIT/ML SOLUTION PEN-INJECTOR 110 UNITS SUBCUTANEOUS ONCE DAILY TAKING CLARITIN 10 MG TABLET 1 TABLET ORALLY ONCE A DAY TAKING AMBIEN 10 MG TABLET 1 TABLET AT BEDTIME NEEDED ORALLY QHS TAKING LANTUS SOLOSTAR 100 UNIT/ML SOLUTION PEN-INJECTOR 100 UNITS SUBCUTANEOUS DAILY TAKING PRAMIPEXOLE DIHYDROCHLORIDE 1.5 MG TABLET 1 TABLET ORALLY TAKE AT 7 PM AND 11 PM MDD=2 TAKING POTASSIUM 99 MG TABLET 1 TABLET ORALLY ONCE A DAY TAKING TIZANIDINE HCL 4 MG TABLET 1 TABLET NEEDED ORALLY THREE TIMES A DAY TAKING ZOLPIDEM TARTRATE 10 MG TABLET 1 TABLET ORALLY AT BEDTIME MDD=1 TAKING TYLENOL WITH CODEINE #3 300-30 MG TABLET 1 TABLET ORALLY EVERY 6 HRS PRN PAIN MDD=4 NOT-TAKING EFFEXOR XR 37.5 MG CAPSULE EXTENDED RELEASE 24 HOUR 1 CAPSULE WITH FOOD ORALLY ONCE A DAY NOT-TAKING COLACE 100 MG CAPSULE 1 CAPSULE NEEDED ORALLY TWO TIMES A DAY MEDICATION LIST REVIEWED AND RECONCILED WITH THE PATIENT PAST MEDICAL HISTORY DIABETES CHRONIC BACK PAIN HYPERTENSION RYLAN ASTHMA ALLERGIES N.K.D.A. REVIEW OF SYSTEMS CONSTITUTIONAL: ANY CHANGE IN YOUR MEDICAL CONDITION? NO . CHILLS NO . FEVER NO . INFECTION: DO YOU HAVE NEW INFECTIONS? NO . DO YOU HAVE HISTORY OF MRSA? NO . MUSCULOSKELETAL: ANY NEW PATTERNS OF PAIN OR NUMBNESS? NO . GASTROENTEROLOGY: ANY NEW CHANGE IN BOWEL CONTROL? NO . GENITOURINARY: ANY NEW CHANGE IN BLADDER CONTROL? NO . IS THERE A CHANCE YOU COULD BE ? NO . HEMATOLOGY/LYMPH: DO YOU TAKE ANY BLOOD THINNERS? (FOR EXAMPLE- COUMADIN, PLAVIX, AGGRENOX, PLATEL, PRADAXA, OR XARELTO) NO . WHEN WAS YOUR LAST DOSE? DATE: TIME: . NEUROLOGY: HAVE YOU FALLEN IN THE PAST 6 MONTHS? NO . ANY NEW EXTREMITY NUMBNESS OR WEAKNESS? NO . CARDIOLOGY: DO YOU HAVE A PACEMAKER OR DEFIBRILLATOR? NO . RESPIRATORY: HAVE YOU BEEN SICK IN THE PAST WEEK? NO . FEVER NO . FLU LIKE SYMPTOMS? NO . CPAP HAD BEEN USING CPAP DAILY WITH IMPROVEMENT IN COGNITIVE FUNCTION AND DAILY EXCESSIVE SLEEPINESS. . COUGH NO . INTEGUMENTARY: DO YOU HAVE ANY RASHES OR OPEN SORES? NO . ALLERGIC/IMMUNO: ARE YOU ALLERGIC TO SHELLFISH OR IV DYE? NO . ANY NEW ALLERGIES? NO . PSYCHIATRIC: DO YOU HAVE THOUGHTS OF HURTING YOURSELF OR SOMEONE ELSE? NO . ARE YOU ABUSED, NEGLECTED, OR IN AN UNSAFE ENVIRONMENT? NO . ENDOCRINOLOGY: ARE YOU DIABETIC? YES, FSBS 154 THIS A.M . OTHER: DO YOU NEED ANY PRESCRIPTIONS? YES . IF YES, PLEASE LIST: TYLENOL #3, ZOLIDEM, TIAZANIDINE . ANY NEW PROBLEMS WITH YOUR MEDICATIONS? NO . WHEN DID YOU LAST EAT? ____ . WHEN DID YOU LAST DRINK? ____ . WHAT DID YOU LAST DRINK? ____ . NAME OF PERSON DRIVING YOU HOME? ____ . DO YOU HAVE ANY OTHER QUESTIONS OR CONCERNS GOOD RELIEF FROM RF AND IS STILL HAVING RELIEF. . REVIEWED BY: PROVIDER: ZAC TSAI . VITAL SIGNS WT 396.4 LBS, HT 76.5 IN, BMI 47.62 INDEX, BP 154/94 MM HG, HR 109 /MIN, RR 18 /MIN, TEMP 99.1 F, OXYGEN SAT % 95%, NA INITIALS SC 14:48, REVIEWED BY: AD. EXAMINATION GENERAL EXAMINATION: PSYCHALERT , ORIENTED X 3 , TALKATIVE. VERY ALERT TODAY. FACE:ACNE AND GENERALIZED ERRYTHEMA. LUNGS:CLEAR TO AUSCULTATION BILATERALLY. HEART:HEART RATE REGULAR. MUSCULOSKELETAL:RISES EASILY TO STANDING POSITION - STILL WITH BALANCE ISSUES. POSTURE UPRIGHT., TRIGGER POINTS:, ELICITED WITH PALPATION OVER LUMBAR PARAVERTEBRAL MUSCLES AND INTO THE SACRUM. RESTRICTION OF ROM IN THIS AREA. GAIT STIFF, ANTALGIC. NO FOOT DROP. POINT TENDERENESS OVER LUMBAR FACETS AND PARAVERTEBRAL MUSCLES. RIGHT> LEFT. ASSESSMENTS SPONDYLOSIS WITHOUT MYELOPATHY OR RADICULOPATHY, LUMBAR REGION - M47.816 (PRIMARY) SPONDYLOSIS WITHOUT MYELOPATHY OR RADICULOPATHY, LUMBOSACRAL REGION - M47.817 TREATMENT SPONDYLOSIS WITHOUT MYELOPATHY OR RADICULOPATHY, LUMBAR REGION REFILL TYLENOL WITH CODEINE #3 TABLET, 300-30 MG, 1 TABLET, ORALLY, EVERY 6 HRS PRN PAIN MDD=4, 14 DAY(S), 60, REFILLS 0 REFILL ZOLPIDEM TARTRATE TABLET, 10 MG, 1 TABLET, ORALLY, AT BEDTIME MDD=1, 30 DAY(S), 30, REFILLS 3 REFILL TIZANIDINE HCL TABLET, 4 MG, 1 TABLET NEEDED, ORALLY, THREE TIMES A DAY, 30 DAY(S), 90 TABLET, REFILLS 2 INJECTION FACET JOINT/NERVE LUMBAR/SACRALZAC BENTON 03/22/2017 3:27:03 PM > DIAGNOSTIC # 2- RIGHT NOTES: WALK DAILY. USE PAIN MEDS INFREQUENTLY. OTHERS NOTES: FACET JOINT INJECTION MATERIAL WAS PRINTED,FACET JOINT INJECTION: YOUR EXPERIENCE MATERIAL WAS PRINTED. PREVENTIVE MEDICINE PAIN CLINIC TEACHING: PROCEDURE TEACHING PRINTED INFORMATION ON FACET BLOCK GIVEN TO AND REVIEWED WITH PT. ALONG WITH PRE-PROCEDURE INSTRUCTIONS AND PT. VERBALIZED UNDERSTANDING OF BOTH. AD. PROCEDURE CODES FA211 ESTABILISHED PATIENT [facility] FACILITY CHARGE G8730 PAIN ASSESS POS TOOL F/U PLAN DOC G8427 DOC MEDS VERIFIED W/PT OR RE DISPOSITION & COMMUNICATION FOLLOW UP AFTER INJECTION (REASON: [facility] AUTH FOR DIAGNOSTIC #2 RIGHT L$-5, L5-S1) ELECTRONICALLY SIGNED BY JUANI DIALLO ON 04/10/2017 AT 01:24 PM EDT DISCLAIMER : THIS IS A VISIT SUMMARY EXTRACTED FROM THE [employer] CHART. IT IS NOT A COPY OF THE [employer] PROGRESS NOTE. MTDD
== END ==
LOC: M PAIN 14:20
PROVIDERS: ATTEND Nurse Practitioner Family
DX: G89.29 Other chronic pain (principal); M47.816 Spondylosis without myelopathy or radiculopathy, lumbar region; M47.817 Spondylosis without myelopathy or radiculopathy, lumbosacral region; E11.9 Type 2 diabetes mellitus without complications; I10 Essential (primary) hypertension; G47.33 Obstructive sleep apnea (adult) (pediatric); J45.909 Unspecified asthma, uncomplicated; Z79.82 Long term (current) use of aspirin; Z79.84 Long term (current) use of oral hypoglycemic drugs; Z79.899 Other long term (current) drug therapy

== ENCOUNTER → 2017-05-31 | Outpatient (CLI) | payer MEDICARE, OTHER ==
--- NOTE | 2017-06-18 23:24 | ECWPNPC ---
PATIENT NAME: SERGIO WHITE : 1975 GENDER: MALE VISIT DATE: 05/31/2017 DISCHARGE DATE: 05/31/17 1200 VISIT LOCKED DATE TIME: PHYSICIAN: ZAC BENTON RESOURCE: ZAC BENTON HISTORY OF PRESENT ILLNESS HISTORY OF PRESENT ILLNESS: PAIN THE PATIENT DESCRIBES THE PAIN... FALL RISK SCREENING: SCREENING :NO FALLS IN THE PAST YEAR TODAY'S VISIT: NOTES: WAS SCHEDULED FOR RIGHT FACET BLOCK BUT WAS UNABLE TO GET IN FOR THE TREATMENT. HAVING SOME TIGHT MUSCLES BETWEEN SHOULDER BLADES. DID HYPEREXTEND LEFT KNEE WITH NEAR FALL. RATES PAIN TODAY AS6/10. . CURRENT MEDICATIONS TAKING MAGNESIUM 65 MG TABLET 2 ORALLY TWICE DAILY TAKING ASPIR-81 81 MG TABLET DELAYED RELEASE 1 TABLET ORALLY ONCE A DAY TAKING LISINOPRIL 40 MG TABLET 1 TABLET ORALLY ONCE A DAY TAKING METFORMIN HCL 750 MG TABLET 1 TABLET WITH MEALS ORALLY BID TAKING GLIPIZIDE 10 MG TABLET 1 TABLET ORALLY ONCE A DAY TAKING VENTOLIN HFA 108 (90 BASE) MCG/ACT AEROSOL SOLUTION 2 PUFFS NEEDED INHALATION EVERY 4 HRS TAKING TOUJEO SOLOSTAR 300 UNIT/ML SOLUTION PEN-INJECTOR 110 UNITS SUBCUTANEOUS ONCE DAILY TAKING CLARITIN 10 MG TABLET 1 TABLET ORALLY ONCE A DAY TAKING AMBIEN 10 MG TABLET 1 TABLET AT BEDTIME NEEDED ORALLY QHS TAKING LANTUS SOLOSTAR 100 UNIT/ML SOLUTION PEN-INJECTOR 100 UNITS SUBCUTANEOUS DAILY TAKING POTASSIUM 99 MG TABLET 1 TABLET ORALLY ONCE A DAY TAKING TIZANIDINE HCL 4 MG TABLET 1 TABLET NEEDED ORALLY THREE TIMES A DAY TAKING PRAMIPEXOLE DIHYDROCHLORIDE 1.5 MG TABLET 1 TABLET ORALLY TAKE AT 7 PM AND 11 PM MDD=2 TAKING TYLENOL WITH CODEINE #3 300-30 MG TABLET 1 TABLET ORALLY EVERY 6 HRS PRN PAIN MDD=4 NOT-TAKING ZOLPIDEM TARTRATE 10 MG TABLET 1 TABLET ORALLY AT BEDTIME MDD=1 NOT-TAKING EFFEXOR XR 37.5 MG CAPSULE EXTENDED RELEASE 24 HOUR 1 CAPSULE WITH FOOD ORALLY ONCE A DAY NOT-TAKING COLACE 100 MG CAPSULE 1 CAPSULE NEEDED ORALLY TWO TIMES A DAY MEDICATION LIST REVIEWED AND RECONCILED WITH THE PATIENT PAST MEDICAL HISTORY DIABETES CHRONIC BACK PAIN HYPERTENSION RYLAN ASTHMA ALLERGIES N.K.D.A. REVIEW OF SYSTEMS REVIEWED BY: PROVIDER: ZAC BENTON BENEFIT DIRECTOR . CONSTITUTIONAL: ANY CHANGE IN YOUR MEDICAL CONDITION? NO . CHILLS NO . FEVER NO . INFECTION: DO YOU HAVE NEW INFECTIONS? NO . DO YOU HAVE HISTORY OF MRSA? NO . MUSCULOSKELETAL: ANY NEW PATTERNS OF PAIN OR NUMBNESS? NO . GASTROENTEROLOGY: ANY NEW CHANGE IN BOWEL CONTROL? NO . GENITOURINARY: ANY NEW CHANGE IN BLADDER CONTROL? NO . IS THERE A CHANCE YOU COULD BE ? NO . HEMATOLOGY/LYMPH: DO YOU TAKE ANY BLOOD THINNERS? (FOR EXAMPLE- COUMADIN, PLAVIX, AGGRENOX, PLATEL, PRADAXA, OR XARELTO) NO . WHEN WAS YOUR LAST DOSE? DATE: TIME: . NEUROLOGY: HAVE YOU FALLEN IN THE PAST 6 MONTHS? YES SLIPPED ON DECK ABOUT A MONTH AGO . ANY NEW EXTREMITY NUMBNESS OR WEAKNESS? YES NEW PAIN IN LEFT KNEE SINCE THE FALL ON DECK . CARDIOLOGY: DO YOU HAVE A PACEMAKER OR DEFIBRILLATOR? NO . RESPIRATORY: HAVE YOU BEEN SICK IN THE PAST WEEK? NO . FEVER NO . FLU LIKE SYMPTOMS? NO . COUGH NO . INTEGUMENTARY: DO YOU HAVE ANY RASHES OR OPEN SORES? NO . ALLERGIC/IMMUNO: ARE YOU ALLERGIC TO SHELLFISH OR IV DYE? NO . ANY NEW ALLERGIES? NO . PSYCHIATRIC: DO YOU HAVE THOUGHTS OF HURTING YOURSELF OR SOMEONE ELSE? NO . ARE YOU ABUSED, NEGLECTED, OR IN AN UNSAFE ENVIRONMENT? NO . ENDOCRINOLOGY: ARE YOU DIABETIC? YES - BLOOD SUGARS UNDER CONTROL . OTHER: DO YOU NEED ANY PRESCRIPTIONS? NO . IF YES, PLEASE LIST: ____ . ANY NEW PROBLEMS WITH YOUR MEDICATIONS? NO . WHEN DID YOU LAST EAT? ____ . WHEN DID YOU LAST DRINK? ____ . WHAT DID YOU LAST DRINK? ____ . NAME OF PERSON DRIVING YOU HOME? ____ . DO YOU HAVE ANY OTHER QUESTIONS OR CONCERNS NO . VITAL SIGNS WT 397.2 LBS, HT 76.5 IN, BMI 47.71 INDEX, BP 128/70 MM HG, HR 110 /MIN, RR 18 /MIN, TEMP 99.1 F, OXYGEN SAT % 96%, NA INITIALS SC 10:59, REVIEWED BY: KG. EXAMINATION GENERAL EXAMINATION: PSYCHALERT , ORIENTED X 3 , TALKATIVE. VERY ALERT TODAY. FACE:ACNE AND GENERALIZED ERRYTHEMA. LUNGS:CLEAR TO AUSCULTATION BILATERALLY. HEART:HEART RATE REGULAR. MUSCULOSKELETAL:RISES EASILY TO STANDING POSITION - STILL WITH BALANCE ISSUES. POSTURE UPRIGHT., TRIGGER POINTS:, ELICITED WITH PALPATION OVER LUMBAR PARAVERTEBRAL MUSCLES AND INTO THE SACRUM. RESTRICTION OF ROM IN THIS AREA. GAIT STIFF, ANTALGIC. NO FOOT DROP. POINT TENDERENESS OVER LUMBAR FACETS AND PARAVERTEBRAL MUSCLES. RIGHT> LEFT. ASSESSMENTS LUMBAR FACET ARTHROPATHY - M46.96 (PRIMARY) SPONDYLOSIS WITHOUT MYELOPATHY OR RADICULOPATHY, LUMBAR REGION - M47.816 MYALGIA - M79.1 TREATMENT LUMBAR FACET ARTHROPATHY NOTES: UTOX TODAYOK TO CALL FOR TRIGGER POINT INJECTIONS TO UPPER BACKCALL WHEN SCRIPTS DUE. PROCEDURE CODES FA211 ESTABILISHED PATIENT [facility] CHARGE G8730 PAIN ASSESS POS TOOL F/U PLAN DOC G8427 DOC MEDS VERIFIED W/PT OR RE DISPOSITION & COMMUNICATION FOLLOW UP 2-3 MONTHS (REASON: BACK PAIN OK TO CALL FOR TPI) ELECTRONICALLY SIGNED BY JUANI DIALLO ON 06/18/2017 AT 03:51 PM EDT DISCLAIMER : THIS IS A VISIT SUMMARY EXTRACTED FROM THE [employer] CHART. IT IS NOT A COPY OF THE [employer] PROGRESS NOTE. MASOOD
== END ==
LOC: M PAIN 10:45
PROVIDERS: ATTEND Nurse Practitioner Family
DX: G89.29 Other chronic pain (principal); M46.96 Unspecified inflammatory spondylopathy, lumbar region; M47.816 Spondylosis without myelopathy or radiculopathy, lumbar region; E11.9 Type 2 diabetes mellitus without complications; M79.1 Myalgia; M54.9 Dorsalgia, unspecified; I10 Essential (primary) hypertension; G47.33 Obstructive sleep apnea (adult) (pediatric); J45.909 Unspecified asthma, uncomplicated; Z79.82 Long term (current) use of aspirin; Z79.4 Long term (current) use of insulin

== ENCOUNTER → 2017-07-27 | Outpatient (REF) | payer MEDICARE | LOC: M LAB REF 16:21 | PROVIDERS: ATTEND Internal Medicine | DX: E78.5 Hyperlipidemia, unspecified (principal) ==

== ENCOUNTER → 2017-11-08 | Outpatient (CLI) | payer MEDICARE, OTHER | LOC: M PAIN 10:15 | DX: M47.816 Spondylosis without myelopathy or radiculopathy, lumbar region (principal); Z79.899 Other long term (current) drug therapy; M47.817 Spondylosis without myelopathy or radiculopathy, lumbosacral region; M79.1 Myalgia; E11.9 Type 2 diabetes mellitus without complications; I10 Essential (primary) hypertension; Z79.891 Long term (current) use of opiate analgesic; Z79.82 Long term (current) use of aspirin; Z79.4 Long term (current) use of insulin | CPT/HCPCS: G0463 ==

== ENCOUNTER → 2017-11-30 | Outpatient (CLI) | payer MEDICARE, OTHER ==
[~2017-11-30] MED LIST changes: -/ACETCOD2T PO; -/ROPI5TA PO; -/TRAZ10TA PO; -ADVAIR; -ADVAIR INH; -ALLE25CA OR; -AMBI10TA OR; -AMIT25TA2; -AMIT25TA2 OR; -ATOR40TA PO; -BABY81CH OR; -BACL10TA2 OR; +BUPIVACAINE HCL 0.25% 30 ML VIAL As Ordered; -BUPR15TA OR; -BYDU1INJ SC; -CELE40TA; -CEPH500C OR; -CLAR5CHW OR; -CLON0.2T; -CLON0.2T OR; -COLA100C2 OR; -CYCL10TA PO; -CYCL10TA3 PO; -DIAZ10TA2 OR; -DILA4TAB PO; -EFFE150C OR; -EFFE75CA75 PO; -FLEXERIL; -FLEXERIL PO; -GABA100C PO; -GABA300C2 PO; -GLIPIZIDE PO; -HYDR25TA6; -HYDR25TA6 OR; -HYDR4TAB; -HYDR4TAB PO; -IBUP600T OR; +ISOVUE-M 300 61% 15ML VIAL (Q9967) As Ordered; -LANTINJ4 SC; +LIDOCAINE 1% SDV INJ 30 ML VIAL As Ordered; -LISI40TA OR; -META800T82 PO; -METF500T4 OR; -MIRA0.5T PO; -MORP15TA2 PO; -MORP15TA4 OR; -MORP20CA PO; -MORP30TA4 OR; -MS C; -MS C30TA2; -MS IR OR; -OXYC10TA97 OR; -PERC5TAB8 PO; -PRIL20CA OR; -SKEL800T5 PO; -SOMA350T; -SOMA350T OR; -TRAM50TA2; -TRAM50TA2 OR; -TRIC145T19 OR; -TYLENOL #3; -VALI5TAB PO; -VICODINES TAB OR; -VOLT1GEL EX; -endocet PO; -kadian PO; -sudafed OR
== END ==
LOC: M PAIN 08:30
DX: G89.29 Other chronic pain (principal); M47.816 Spondylosis without myelopathy or radiculopathy, lumbar region; M47.817 Spondylosis without myelopathy or radiculopathy, lumbosacral region; E11.9 Type 2 diabetes mellitus without complications; I10 Essential (primary) hypertension; G47.30 Sleep apnea, unspecified; J45.909 Unspecified asthma, uncomplicated; Z79.82 Long term (current) use of aspirin; Z79.4 Long term (current) use of insulin; Z79.899 Other long term (current) drug therapy
CPT/HCPCS: Q9967

== ENCOUNTER → 2017-12-14 | Outpatient (CLI) | payer MEDICARE, OTHER | LOC: M PAIN 09:45 | DX: M47.816 Spondylosis without myelopathy or radiculopathy, lumbar region (principal); M47.817 Spondylosis without myelopathy or radiculopathy, lumbosacral region; E11.9 Type 2 diabetes mellitus without complications; I10 Essential (primary) hypertension; J45.909 Unspecified asthma, uncomplicated; Z79.82 Long term (current) use of aspirin; Z79.4 Long term (current) use of insulin; Z79.899 Other long term (current) drug therapy | CPT/HCPCS: G0463 ==

== ENCOUNTER → 2017-12-29 | Outpatient (CLI) | payer MEDICARE, OTHER | LOC: M PAIN 10:15 | DX: Z53.29 Procedure and treatment not carried out because of patient's decision for other reasons (principal) ==

== ENCOUNTER → 2018-01-12 | Outpatient (CLI) | payer MEDICARE, OTHER ==
[~2018-01-12] MED LIST changes: +TRIAMCINOLONE ACETONIDE SUSP 40 MG/ML VIAL (J3301) As Ordered
== END ==
LOC: M PAIN 14:00
DX: G89.29 Other chronic pain (principal); M47.816 Spondylosis without myelopathy or radiculopathy, lumbar region; M47.817 Spondylosis without myelopathy or radiculopathy, lumbosacral region; E11.9 Type 2 diabetes mellitus without complications; I10 Essential (primary) hypertension; G47.30 Sleep apnea, unspecified; J45.909 Unspecified asthma, uncomplicated; Z79.82 Long term (current) use of aspirin; Z79.4 Long term (current) use of insulin; Z79.899 Other long term (current) drug therapy
CPT/HCPCS: J3301

== ENCOUNTER → 2018-01-30 | Outpatient (CLI) | payer MEDICARE, OTHER | LOC: M PAIN 10:45 | DX: M47.816 Spondylosis without myelopathy or radiculopathy, lumbar region (principal); M47.817 Spondylosis without myelopathy or radiculopathy, lumbosacral region; E11.9 Type 2 diabetes mellitus without complications; I10 Essential (primary) hypertension; Z79.82 Long term (current) use of aspirin; Z79.4 Long term (current) use of insulin; Z79.899 Other long term (current) drug therapy | CPT/HCPCS: G0463 ==

== ENCOUNTER → 2018-02-13 | Outpatient (CLI) | payer MEDICARE, OTHER ==
[~2018-02-13] MED LIST changes: -TRIAMCINOLONE ACETONIDE SUSP 40 MG/ML VIAL (J3301) As Ordered
== END ==
LOC: M PAIN 10:45
DX: G89.29 Other chronic pain (principal); M47.816 Spondylosis without myelopathy or radiculopathy, lumbar region; M47.817 Spondylosis without myelopathy or radiculopathy, lumbosacral region; E11.9 Type 2 diabetes mellitus without complications; I10 Essential (primary) hypertension; G47.33 Obstructive sleep apnea (adult) (pediatric); J45.909 Unspecified asthma, uncomplicated; Z79.82 Long term (current) use of aspirin; Z79.4 Long term (current) use of insulin; Z79.899 Other long term (current) drug therapy
CPT/HCPCS: Q9967

== ENCOUNTER → 2018-03-01 | Outpatient (CLI) | payer MEDICARE, OTHER | LOC: M PAIN 09:00 | DX: G89.29 Other chronic pain (principal); M47.816 Spondylosis without myelopathy or radiculopathy, lumbar region; M47.817 Spondylosis without myelopathy or radiculopathy, lumbosacral region; E11.9 Type 2 diabetes mellitus without complications; I10 Essential (primary) hypertension; G47.33 Obstructive sleep apnea (adult) (pediatric); J45.909 Unspecified asthma, uncomplicated; Z79.82 Long term (current) use of aspirin; Z79.4 Long term (current) use of insulin; Z79.899 Other long term (current) drug therapy | CPT/HCPCS: G0463 ==

== ENCOUNTER → 2018-03-21 | Outpatient (CLI) | payer MEDICARE ==
[~2018-03-21] MED LIST changes: -ISOVUE-M 300 61% 15ML VIAL (Q9967) As Ordered; +KETOROLAC 60 MG/2 ML VIAL (J1885) As Ordered; +LIDOCAINE 2% W/EPIN INJ 20ML **PRES FREE As Ordered; +MORPHINE PRES-FREE INJ 10 MG/10 ML VIAL (J2274) As Ordered; +ONDANSETRON 4MG/2ML VIAL (J2405) As Ordered; +OXYTOCIN INJ 10 UNITS/ML VIAL (J2590) As Ordered; +TRIAMCINOLONE ACETONIDE SUSP 40 MG/ML VIAL (J3301) As Ordered
== END ==
LOC: M PAIN 13:45
DX: G89.29 Other chronic pain (principal); M47.816 Spondylosis without myelopathy or radiculopathy, lumbar region; M47.817 Spondylosis without myelopathy or radiculopathy, lumbosacral region; E11.9 Type 2 diabetes mellitus without complications; I10 Essential (primary) hypertension; G47.33 Obstructive sleep apnea (adult) (pediatric); J45.909 Unspecified asthma, uncomplicated; Z79.82 Long term (current) use of aspirin; Z79.4 Long term (current) use of insulin; Z79.899 Other long term (current) drug therapy
CPT/HCPCS: J3301

== ENCOUNTER → 2018-04-05 | Outpatient (CLI) | payer MEDICARE | LOC: M PAIN 09:45 | DX: M79.1 Myalgia (principal); M47.816 Spondylosis without myelopathy or radiculopathy, lumbar region; M47.817 Spondylosis without myelopathy or radiculopathy, lumbosacral region; E11.9 Type 2 diabetes mellitus without complications; I10 Essential (primary) hypertension; J45.909 Unspecified asthma, uncomplicated; Z79.4 Long term (current) use of insulin; Z79.82 Long term (current) use of aspirin; Z79.899 Other long term (current) drug therapy | CPT/HCPCS: G0463 ==

== ENCOUNTER → 2018-04-18 | Outpatient (CLI) | payer MEDICARE ==
[~2018-04-18] MED LIST changes: +BUPIVACAINE HCL 0.25% 10 ML VIAL As Ordered; -KETOROLAC 60 MG/2 ML VIAL (J1885) As Ordered; -LIDOCAINE 1% SDV INJ 30 ML VIAL As Ordered; -LIDOCAINE 2% W/EPIN INJ 20ML **PRES FREE As Ordered; -MORPHINE PRES-FREE INJ 10 MG/10 ML VIAL (J2274) As Ordered; -ONDANSETRON 4MG/2ML VIAL (J2405) As Ordered; -OXYTOCIN INJ 10 UNITS/ML VIAL (J2590) As Ordered
[2018-04-18 16:34] LABS: BEDSIDE GLUCOSE 215 MG/DL (70-105)
== END ==
LOC: M PAIN 15:00
DX: G89.29 Other chronic pain (principal); M79.1 Myalgia; M54.6 Pain in thoracic spine; E11.9 Type 2 diabetes mellitus without complications; I10 Essential (primary) hypertension; G47.33 Obstructive sleep apnea (adult) (pediatric); J45.909 Unspecified asthma, uncomplicated; Z79.82 Long term (current) use of aspirin; Z79.4 Long term (current) use of insulin; Z79.899 Other long term (current) drug therapy
CPT/HCPCS: J3301

== ENCOUNTER → 2018-05-24 | Outpatient (CLI) | payer MEDICARE, MEDICAID | LOC: M PAIN 11:15 | DX: M79.1 Myalgia (principal); M47.816 Spondylosis without myelopathy or radiculopathy, lumbar region; M47.817 Spondylosis without myelopathy or radiculopathy, lumbosacral region; E11.9 Type 2 diabetes mellitus without complications; I10 Essential (primary) hypertension; G47.33 Obstructive sleep apnea (adult) (pediatric); J45.909 Unspecified asthma, uncomplicated; Z79.82 Long term (current) use of aspirin; Z79.4 Long term (current) use of insulin; Z79.899 Other long term (current) drug therapy | CPT/HCPCS: G0463 ==

== ENCOUNTER → 2018-08-18 | Outpatient (CLI) | payer MEDICARE, MEDICAID | LOC: M PAIN 09:15 | DX: M47.816 Spondylosis without myelopathy or radiculopathy, lumbar region (principal); M79.18 Myalgia, other site; E11.9 Type 2 diabetes mellitus without complications; I10 Essential (primary) hypertension; G47.33 Obstructive sleep apnea (adult) (pediatric); J45.909 Unspecified asthma, uncomplicated; Z79.82 Long term (current) use of aspirin; Z79.4 Long term (current) use of insulin; Z79.899 Other long term (current) drug therapy | CPT/HCPCS: G0463 ==

== ENCOUNTER → 2018-09-07 | Outpatient (CLI) | payer MEDICARE, MEDICAID ==
[~2018-09-07] MED LIST changes: -BUPIVACAINE HCL 0.25% 10 ML VIAL As Ordered; +ISOVUE-M 300 61% 15ML VIAL (Q9967) As Ordered; +LIDOCAINE 1% SDV INJ 30 ML VIAL As Ordered; -TRIAMCINOLONE ACETONIDE SUSP 40 MG/ML VIAL (J3301) As Ordered
== END ==
LOC: M PAIN 08:45
DX: G89.29 Other chronic pain (principal); M47.816 Spondylosis without myelopathy or radiculopathy, lumbar region; E11.9 Type 2 diabetes mellitus without complications; I10 Essential (primary) hypertension; G47.30 Sleep apnea, unspecified; J45.909 Unspecified asthma, uncomplicated; E66.01 Morbid (severe) obesity due to excess calories; Z68.43 Body mass index [BMI] 50.0-59.9, adult; Z79.82 Long term (current) use of aspirin; Z79.4 Long term (current) use of insulin; Z79.899 Other long term (current) drug therapy
CPT/HCPCS: Q9967

== ENCOUNTER → 2018-10-13 | Outpatient (CLI) | payer MEDICARE, MEDICAID ==
[~2018-10-13] MED LIST changes: +/ACETCOD2T PO; +/ROPI5TA PO; +/TRAZ10TA PO; +ADVAIR; +ADVAIR INH; +ALLE25CA OR; +AMBI10TA OR; +AMIT25TA2; +AMIT25TA2 OR; +ATOR40TA PO; +BABY81CH OR; +BACL10TA2 OR; -BUPIVACAINE HCL 0.25% 30 ML VIAL As Ordered; +BUPR15TA OR; +BYDU1INJ SC; +CELE40TA; +CEPH500C OR; +CLAR5CHW OR; +CLON0.2T; +CLON0.2T OR; +COLA100C2 OR; +CYCL10TA PO; +CYCL10TA3 PO; +DIAZ10TA2 OR; +DILA4TAB PO; +EFFE150C OR; +EFFE75CA2 PO; +FLEXERIL; +FLEXERIL PO; +GABA100C PO; +GABA300C2 PO; +GLIPIZIDE PO; +HYDR25TA6; +HYDR25TA6 OR; +HYDR4TAB; +HYDR4TAB PO; +IBUP600T OR; -ISOVUE-M 300 61% 15ML VIAL (Q9967) As Ordered; +LANTINJ4 SC; -LIDOCAINE 1% SDV INJ 30 ML VIAL As Ordered; +LISI40TA OR; +META800T82 PO; +METF500T4 OR; +MIRA0.5T PO; +MORP15TA2 PO; +MORP15TA4 OR; +MORP20CA PO; +MORP30TA4 OR; +MS C; +MS C30TA2; +MS IR OR; +OXYC10TA97 OR; +PERC5TAB8 PO; +PRIL20CA OR; +SKEL800T5 PO; +SOMA350T; +SOMA350T OR; +TRAM50TA2; +TRAM50TA2 OR; +TRIC145T19 OR; +TYLENOL #3; +VALI5TAB PO; +VICODINES TAB OR; +VOLT1GEL EX; +endocet PO; +kadian PO; +sudafed OR
--- NOTE | 2018-11-09 01:33 | ECWPNPC ---
PATIENT NAME: SERGIO WHITE : 1975 GENDER: MALE VISIT DATE: 10/13/2018 DISCHARGE DATE: 10/13/18 1127 VISIT LOCKED DATE TIME: PHYSICIAN: CHARLY HIGGINBOTHAM RESOURCE: CHARLY HIGGINBOTHAM REASON FOR APPOINTMENT 1. POST PROC HISTORY OF PRESENT ILLNESS HISTORY OF PRESENT ILLNESS: HERE FOR POST PROCEDURE F/U.HAD #2 RIGHT L4/5-L5/S1 DIAGNOSTIC BLOCK ON 09-07-18.REPORTING >50% IMPROVEMENT IN PAIN X1 WEEK.RATING PAIN VAS 6/10.FINDS CURRENT MEDICAINE EFFECTIVE AT REDUCING PAIN AND KEEPING HIM COMFORTABLE.DENIES SIDE EFFECTS. PAIN THE PATIENT DESCRIBES THE PAIN... FALL RISK SCREENING: SCREENING :NO FALLS IN THE PAST YEAR CURRENT MEDICATIONS TAKING ASPIR-81 81 MG TABLET DELAYED RELEASE 1 TABLET ORALLY ONCE A DAY, NOTES: 09/06/18529 TAKING MAGNESIUM 65 MG TABLET 2 ORALLY TWICE DAILY, NOTES: 09/06/182099 TAKING LISINOPRIL 40 MG TABLET 1 TABLET ORALLY ONCE A DAY, NOTES: 09/06/182099 TAKING METFORMIN HCL 750 MG TABLET 1 TABLET WITH MEALS ORALLY BID, NOTES: 09/06/182099 TAKING GLIPIZIDE 10 MG TABLET 1 TABLET ORALLY ONCE A DAY, NOTES: 09/06/18529 TAKING VENTOLIN HFA 108 (90 BASE) MCG/ACT AEROSOL SOLUTION 2 PUFFS NEEDED INHALATION EVERY 4 HRS, NOTES: 3 DAYS TAKING TOUJEO SOLOSTAR 300 UNIT/ML SOLUTION PEN-INJECTOR 110 UNITS SUBCUTANEOUS ONCE DAILY, NOTES: 09/06/182099 TAKING LANTUS SOLOSTAR 100 UNIT/ML SOLUTION PEN-INJECTOR 120 UNITS SUBCUTANEOUS DAILY, NOTES: 09/06/181829 TAKING POTASSIUM 99 MG TABLET 1 TABLET ORALLY ONCE A DAY, NOTES: 09/06/182099 TAKING DILTIAZEM HCL ER 240 MG CAPSULE EXTENDED RELEASE 24 HOUR 1 CAPSULE ON AN EMPTY STOMACH IN THE MORNING ORALLY ONCE A DAY, NOTES: 09/06/182099 TAKING PRAMIPEXOLE DIHYDROCHLORIDE 1.5 MG TABLET 1 TABLET ORALLY TAKE AT 7 PM AND 11 PM MDD=2, NOTES: 09/06/182099 TAKING TIZANIDINE HCL 4 MG TABLET 1 TABLET NEEDED ORALLY THREE TIMES A DAY, NOTES: 09/06/182099 TAKING TYLENOL WITH CODEINE #3 300-30 MG TABLET 1 TABLET ORALLY EVERY 6 HRS PRN PAIN MDD=4, NOTES: 09/06/18 2100 NOT-TAKING AMBIEN 10 MG TABLET 1 TABLET AT BEDTIME NEEDED ORALLY QHS NOT-TAKING BUPROPION HCL ER (XL) 300 MG TABLET EXTENDED RELEASE 24 HOUR 1 TABLET IN THE MORNING ORALLY ONCE A DAY MEDICATION LIST REVIEWED AND RECONCILED WITH THE PATIENT PAST MEDICAL HISTORY DIABETES CHRONIC BACK PAIN HYPERTENSION RYLAN ASTHMA ALLERGIES N.K.D.A. SURGICAL HISTORY NONE FAMILY HISTORY FATHER: , DIAGNOSED WITH DIABETES, HYPERTENSION, CANCER MOTHER: ALIVE, DIAGNOSED WITH DIABETES, HYPERTENSION SIBLINGS: ALIVE 2 BROTHER(S) - HEALTHY. 2 SON(S) - HEALTHY. MOTHER - PARKINSON'S. SOCIAL HISTORY GENERAL: TOBACCO USE ARE YOU A:NONSMOKER ALCOHOL SCREENING DID YOU HAVE A DRINK CONTAINING ALCOHOL IN THE PAST YEAR?NO POINTS0 INTERPRETATIONNEGATIVE RECREATIONAL DRUG USE: NEVER PAST USE OF: CURRENTLY USING:. CAFFEINE: YES CAFFEINE USE? CUP SODA DAILY RESTORATIONIST [id number] HOAHAOISM LANGUAGE LANGUAGES SPOKEN:FRENCH LEARNING BARRIERS / SPECIAL NEEDS CHANGE FROM LAST VISIT?NO BARRIERS TO LEARNING?NO HEARING IMPAIRED?NO VISION IMPAIRED?NO COGNITIVELY IMPAIRED?NO READINESS TO LEARN?YES LEARNING PREFERENCES?NO LEARNING CAPABILITIES PRESENT?NO EMOTIONAL BARRIERS?NO SPECIAL DEVICES?NO MONITOR TECH NEEDED?NO PAIN CLINIC PFS, CLERGY, PUBLIC HEALTH REFERRALS PFS REFERRAL NEEDED?NO CLERGY REFERRAL NEEDED?NO PUBLIC HEALTH REFERRAL NEEDED?NO WAS THE PROVIDER NOTIFIED OF ANY PERTINENT INFO?NO HAS THE PATIENT BEEN EDUCATED REGARDING HIS/HER PLAN OF CARE?YES HAS THE PATIENT BEEN EDUCATED REGARDING PAIN, THE RISK FOR PAIN, THE IMPORTANCE OF EFFECTIVE PAIN MANAGEMENT, AND THE PAIN ASSESSMENT PROCESS?YES ADVANCE DIRECTIVE ADVANCE DIRECTIVE DISCUSSED WITH PATIENT:YES PT HAS NO ADVANCED DIRECTIVES, DECLINED INFORMATIN OR ASSISTANCE AT THIS TIME REVIEWED TH PATIENT 09/07/18 0918 JSREVIEWED WITH PT 10/13/18 1054 LAS. HOSPITALIZATION/MAJOR DIAGNOSTIC PROCEDURE NO HOSPITALIZATION HISTORY. REVIEW OF SYSTEMS REVIEWED BY: PROVIDER: CHARLY TSAI . CONSTITUTIONAL: ANY CHANGE IN YOUR MEDICAL CONDITION? NO . CHILLS NO . FEVER NO . INFECTION: DO YOU HAVE NEW INFECTIONS? NO . DO YOU HAVE HISTORY OF MRSA? NO . MUSCULOSKELETAL: ANY NEW PATTERNS OF PAIN OR NUMBNESS? NO . GASTROENTEROLOGY: ANY NEW CHANGE IN BOWEL CONTROL? NO . GENITOURINARY: ANY NEW CHANGE IN BLADDER CONTROL? NO . IS THERE A CHANCE YOU COULD BE ? NO . HEMATOLOGY/LYMPH: DO YOU TAKE ANY BLOOD THINNERS? (FOR EXAMPLE- COUMADIN, PLAVIX, AGGRENOX, PLATEL, PRADAXA, OR XARELTO) NO . WHEN WAS YOUR LAST DOSE? DATE: TIME: . NEUROLOGY: HAVE YOU FALLEN IN THE PAST 6 MONTHS? NO . ANY NEW EXTREMITY NUMBNESS OR WEAKNESS? NO . CARDIOLOGY: DO YOU HAVE A PACEMAKER OR DEFIBRILLATOR? NO . RESPIRATORY: HAVE YOU BEEN SICK IN THE PAST WEEK? NO . FEVER NO . FLU LIKE SYMPTOMS? NO . COUGH NO . INTEGUMENTARY: DO YOU HAVE ANY RASHES OR OPEN SORES? NO . ALLERGIC/IMMUNO: ARE YOU ALLERGIC TO SHELLFISH OR IV DYE? NO . ANY NEW ALLERGIES? NO . PSYCHIATRIC: DO YOU HAVE THOUGHTS OF HURTING YOURSELF OR SOMEONE ELSE? NO . ARE YOU ABUSED, NEGLECTED, OR IN AN UNSAFE ENVIRONMENT? NO . ENDOCRINOLOGY: ARE YOU DIABETIC? YES . OTHER: DO YOU NEED ANY PRESCRIPTIONS? YES . IF YES, PLEASE LIST: ____TYLENOL #3, PRAMIPEXOL, TIZANIDINE . ANY NEW PROBLEMS WITH YOUR MEDICATIONS? NO . WHEN DID YOU LAST EAT? ____ . WHEN DID YOU LAST DRINK? ____ . WHAT DID YOU LAST DRINK? ____ . NAME OF PERSON DRIVING YOU HOME? ____ . DO YOU HAVE ANY OTHER QUESTIONS OR CONCERNS NO . VITAL SIGNS WT 416 LBS, HT 76.5 IN, BMI 49.97 INDEX, BP 162/90 MM HG, HR 92 /MIN, RR 18 /MIN, TEMP 99.7 F, OXYGEN SAT % 97%, SAFE IN ENV? (Y/N) YES, REVIEWED BY: RADHA. EXAMINATION GENERAL EXAMINATION: GENERAL APPEARANCE:AWAKE,ALERT ,PLEAASANT . PSYCHAFFECT NORMAL . LUNGS:LUNG CERDA ARE CLEAR TO AUSCULTATION BILATERALLY. GOOD MOVEMENT OF AIR . HEART:S1, S2 IN A REGULAR RATE AND RHYTHM. NO SIGNIFICANT MURMURS, RUBS OR GALLOPS NOTED . LUMBAR SACRAL SPINEPALPATION:TENDER OVER BILAT. L4/5-L5/S1 LUMBAR FACETS WITH FACET LOADING.. 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 BRINGS IN MEDICATIONS WHICH IS APPROPRIATE FOR WHAT WAS DISPENSED. RECENT URINE TOXICOLOGY REVIEWED. NO UNAUTHORIZED MEDICATIONS. NO ILLICIT SUBSTANCES AND PRESCRIBED MEDICATIONS WERE PRESENT. , RISKS AND BENEFITS OF NARCOTIC/OPIOD MEDICATIONS WERE REVIEWED WITH PATIENT - THIS INCLUDES BUT IS NOT LIMITED TO RISK OF DEPENDANCE/DEVELOPMENT OF ADDICTION, MOOD DISTURBANCE AND DEPRESSION, OSTEOPOROSIS, HORMONAL AND LABIDAL CHANGES, RESPIRATORY DEPRESSION AND . PATIENT IS ADVISED NOT TO DRIVE OR DRINK ALCOHOL WHILE ON THESE MEDICATIONS. PREVENTIVE MEDICINE PAIN CLINIC TEACHING: PROCEDURE TEACHING PRE RADIOFREQUENCY FACET BLOCK INFORMATION AND INSTRUCTIONS REVIEWED WITH PT. VERBALIZED UNDERSTANDING.. PROCEDURE CODES FA211 ESTABILISHED PATIENT [facility] FACILITY CHARGE DISPOSITION & COMMUNICATION FOLLOW UP POST (REASON: RIGHT L4/5-L5/S1 RADIOFREQUENCY DENERVATION) ELECTRONICALLY SIGNED BY EULALIO LIRA ON 11/08/2018 AT 04:21 PM EST DISCLAIMER : THIS IS A VISIT SUMMARY EXTRACTED FROM THE [employer] CHART. IT IS NOT A COPY OF THE [employer] PROGRESS NOTE. MASOOD
== END ==
LOC: M PAIN 10:30
PROVIDERS: ATTEND Nurse Practitioner Family
DX: M47.816 Spondylosis without myelopathy or radiculopathy, lumbar region (principal); M47.817 Spondylosis without myelopathy or radiculopathy, lumbosacral region; E11.9 Type 2 diabetes mellitus without complications; I10 Essential (primary) hypertension; G47.33 Obstructive sleep apnea (adult) (pediatric); J45.909 Unspecified asthma, uncomplicated; E66.01 Morbid (severe) obesity due to excess calories; Z68.42 Body mass index [BMI] 45.0-49.9, adult; Z79.82 Long term (current) use of aspirin; Z79.4 Long term (current) use of insulin; Z79.899 Other long term (current) drug therapy

== ENCOUNTER → 2018-11-13 | Outpatient (CLI) | payer MEDICARE, MEDICAID ==
[~2018-11-13] MED LIST changes: +BUPIVACAINE HCL 0.25% 30 ML VIAL As Ordered ONE; +LIDOCAINE 1% SDV INJ 30 ML VIAL As Ordered ONE; +TRIAMCINOLONE ACETONIDE SUSP 40 MG/ML VIAL (J3301) As Ordered ONE
--- NOTE | 2018-11-13 15:17 | REP ---
Partial lumbar spine series: Three views . History: Injection procedure for pain. 16 seconds of fluoroscopy time is reported. Findings: A sequence of three fluoroscopically obtained last image hold procedural spot radiographs of the lumbar spine document needle position and contrast injection associated with injection procedure. Electronically Signed by Jose Campos MD 11/13/2018 03:09 P
--- NOTE | 2018-11-27 00:33 | ECWPNPC ---
PATIENT NAME: SERGIO WHITE : 1975 GENDER: MALE VISIT DATE: 11/13/2018 DISCHARGE DATE: 11/13/18 1429 VISIT LOCKED DATE TIME: PHYSICIAN: JEANNETTE WALL MD RESOURCE: JEANNETTE WALL MD REASON FOR APPOINTMENT 1. RIGHT L4/5-L5/S1 RADIOFREQUENCY DENERVATION HISTORY OF PRESENT ILLNESS HISTORY OF PRESENT ILLNESS: PAIN THE PATIENT DESCRIBES THE PAIN... FALL RISK SCREENING: SCREENING :NO FALLS IN THE PAST YEAR CURRENT MEDICATIONS TAKING ASPIR-81 81 MG TABLET DELAYED RELEASE 1 TABLET ORALLY ONCE A DAY, NOTES: 11/12 7PM TAKING MAGNESIUM 65 MG TABLET 2 ORALLY TWICE DAILY, NOTES: 11/12 7PM TAKING LISINOPRIL 40 MG TABLET 1 TABLET ORALLY ONCE A DAY, NOTES: 11/12 7PM TAKING METFORMIN HCL 750 MG TABLET 1 TABLET WITH MEALS ORALLY BID, NOTES: 11/12 7PM TAKING GLIPIZIDE 10 MG TABLET 1 TABLET ORALLY ONCE A DAY, NOTES: 11/12 9AM TAKING VENTOLIN HFA 108 (90 BASE) MCG/ACT AEROSOL SOLUTION 2 PUFFS NEEDED INHALATION EVERY 4 HRS, NOTES: 11/12 10AM TAKING TOUJEO SOLOSTAR 300 UNIT/ML SOLUTION PEN-INJECTOR 110 UNITS SUBCUTANEOUS ONCE DAILY, NOTES: 11/12 6PM TAKING LANTUS SOLOSTAR 100 UNIT/ML SOLUTION PEN-INJECTOR 120 UNITS SUBCUTANEOUS DAILY, NOTES: 11/12 4PM TAKING POTASSIUM 99 MG TABLET 1 TABLET ORALLY ONCE A DAY, NOTES: 11/12 7PM TAKING DILTIAZEM HCL ER 240 MG CAPSULE EXTENDED RELEASE 24 HOUR 1 CAPSULE ON AN EMPTY STOMACH IN THE MORNING ORALLY ONCE A DAY, NOTES: 11/12 7PM TAKING TIZANIDINE HCL 4 MG TABLET 1 TABLET NEEDED ORALLY THREE TIMES A DAY, NOTES: 11/12 7PM TAKING TYLENOL WITH CODEINE #3 300-30 MG TABLET 1 TABLET ORALLY EVERY 6 HRS PRN PAIN MDD=4, NOTES: 11/12 7PM TAKING PRAMIPEXOLE DIHYDROCHLORIDE 1.5 MG TABLET 1 TABLET ORALLY TAKE AT 7 PM AND 11 PM MDD=2, NOTES: 11/12 8PM NOT-TAKING AMBIEN 10 MG TABLET 1 TABLET AT BEDTIME NEEDED ORALLY QHS NOT-TAKING BUPROPION HCL ER (XL) 300 MG TABLET EXTENDED RELEASE 24 HOUR 1 TABLET IN THE MORNING ORALLY ONCE A DAY MEDICATION LIST REVIEWED AND RECONCILED WITH THE PATIENT PAST MEDICAL HISTORY DIABETES CHRONIC BACK PAIN HYPERTENSION RYLAN ASTHMA ALLERGIES N.K.D.A. SURGICAL HISTORY NONE FAMILY HISTORY FATHER: , DIAGNOSED WITH DIABETES, HYPERTENSION, CANCER MOTHER: ALIVE, DIAGNOSED WITH DIABETES, HYPERTENSION SIBLINGS: ALIVE 2 BROTHER(S) - HEALTHY. 2 SON(S) - HEALTHY. MOTHER - PARKINSON'S. SOCIAL HISTORY GENERAL: TOBACCO USE ARE YOU A:NONSMOKER ALCOHOL SCREENING DID YOU HAVE A DRINK CONTAINING ALCOHOL IN THE PAST YEAR?NO POINTS0 INTERPRETATIONNEGATIVE RECREATIONAL DRUG USE: NEVER PAST USE OF: CURRENTLY USING:. CAFFEINE: YES CAFFEINE USE? CUP SODA DAILY ZOROASTRIANISM [id number] SIKHISM LANGUAGE LANGUAGES SPOKEN:NORWEGIAN LEARNING BARRIERS / SPECIAL NEEDS CHANGE FROM LAST VISIT?NO BARRIERS TO LEARNING?NO HEARING IMPAIRED?NO VISION IMPAIRED?NO COGNITIVELY IMPAIRED?NO READINESS TO LEARN?YES LEARNING PREFERENCES?NO LEARNING CAPABILITIES PRESENT?NO EMOTIONAL BARRIERS?NO SPECIAL DEVICES?NO GEOPHYSICAL DATA TECHNICIAN NEEDED?NO PAIN CLINIC PFS, CLERGY, PUBLIC HEALTH REFERRALS PFS REFERRAL NEEDED?NO CLERGY REFERRAL NEEDED?NO PUBLIC HEALTH REFERRAL NEEDED?NO WAS THE PROVIDER NOTIFIED OF ANY PERTINENT INFO?YES HAS THE PATIENT BEEN EDUCATED REGARDING HIS/HER PLAN OF CARE?YES HAS THE PATIENT BEEN EDUCATED REGARDING PAIN, THE RISK FOR PAIN, THE IMPORTANCE OF EFFECTIVE PAIN MANAGEMENT, AND THE PAIN ASSESSMENT PROCESS?YES ADVANCE DIRECTIVE ADVANCE DIRECTIVE DISCUSSED WITH PATIENT:YES PT HAS NO ADVANCED DIRECTIVES, DECLINED INFORMATIN OR ASSISTANCE AT THIS TIME REVIEWED TH PATIENT 09/07/18 0918 JSREVIEWED WITH PT 10/13/18 1054 LAS. HOSPITALIZATION/MAJOR DIAGNOSTIC PROCEDURE NO HOSPITALIZATION HISTORY. REVIEW OF SYSTEMS REVIEWED BY: PROVIDER: . CONSTITUTIONAL: ANY CHANGE IN YOUR MEDICAL CONDITION? NO . CHILLS NO . FEVER NO . INFECTION: DO YOU HAVE NEW INFECTIONS? NO . DO YOU HAVE HISTORY OF MRSA? NO . MUSCULOSKELETAL: ANY NEW PATTERNS OF PAIN OR NUMBNESS? NO . GASTROENTEROLOGY: ANY NEW CHANGE IN BOWEL CONTROL? NO . GENITOURINARY: ANY NEW CHANGE IN BLADDER CONTROL? NO . IS THERE A CHANCE YOU COULD BE ? NO . HEMATOLOGY/LYMPH: DO YOU TAKE ANY BLOOD THINNERS? (FOR EXAMPLE- COUMADIN, PLAVIX, AGGRENOX, PLATEL, PRADAXA, OR XARELTO) NO . WHEN WAS YOUR LAST DOSE? DATE: TIME: . NEUROLOGY: HAVE YOU FALLEN IN THE PAST 12 MONTHS? NO . ANY NEW EXTREMITY NUMBNESS OR WEAKNESS? NO . CARDIOLOGY: DO YOU HAVE A PACEMAKER OR DEFIBRILLATOR? NO . RESPIRATORY: HAVE YOU BEEN SICK IN THE PAST WEEK? NO . FEVER NO . FLU LIKE SYMPTOMS? NO . COUGH NO . INTEGUMENTARY: DO YOU HAVE ANY RASHES OR OPEN SORES? NO . ALLERGIC/IMMUNO: ARE YOU ALLERGIC TO IV DYE? NO . ANY NEW ALLERGIES? NO . PSYCHIATRIC: DO YOU HAVE THOUGHTS OF HURTING YOURSELF OR SOMEONE ELSE? NO . ARE YOU ABUSED, NEGLECTED, OR IN AN UNSAFE ENVIRONMENT? NO . ENDOCRINOLOGY: ARE YOU DIABETIC? YES, FSBS 236 . OTHER: DO YOU NEED ANY PRESCRIPTIONS? NO . IF YES, PLEASE LIST: ____ . ANY NEW PROBLEMS WITH YOUR MEDICATIONS? NO . WHEN DID YOU LAST EAT? 1- 8PM . WHEN DID YOU LAST DRINK? - 11AM . WHAT DID YOU LAST DRINK? WATER . NAME OF PERSON DRIVING YOU HOME? PRAVEEN . DO YOU HAVE ANY OTHER QUESTIONS OR CONCERNS NO . VITAL SIGNS WT 412.8 LBS, HT 76.5 IN, BMI 49.59 INDEX, BP 172/89 MM HG, HR 97 /MIN, RR 18 /MIN, TEMP 98.5 F, OXYGEN SAT % 99%, SAFE IN ENV? (Y/N) Y, NA INITIALS AW 1255, REVIEWED BY: DS. ASSESSMENTS SPONDYLOSIS WITHOUT MYELOPATHY OR RADICULOPATHY, LUMBAR REGION - M47.816 (PRIMARY) SPONDYLOSIS OF LUMBOSACRAL REGION WITHOUT MYELOPATHY OR RADICULOPATHY - M47.817 TREATMENT SPONDYLOSIS WITHOUT MYELOPATHY OR RADICULOPATHY, LUMBAR REGION SMC FACET BLOCK (PAIN)[id number] PROCEDURES PN RADIOFREQUENCY PRE PROCEDURE DIAGNOSES 1. LUMBAR SPONDYLOSIS. 2. LUMBOSACRAL SPONDYLOSIS POST PROCEDURE DIAGNOSES 1. LUMBAR SPONDYLOSIS. 2. LUMBOSACRAL SPONDYLOSIS PROCEDURE RIGHT L4-L5 AND RIGHT L5-S1 LUMBAR FACET RADIOFREQUENCY SURGEON DR. JEANNETTE WALL LEAD MOBILE DEVELOPER NONE ANESTHESIA LOCAL PRE PROCEDURE REPORT THE PATIENT HAS HISTORY OF CHRONIC LOW BACK PAIN. I EVALUATE THE PATIENT AND REVIEWED THE CHART. I WENT OVER THE RISKS, ALTERNATIVES, AND BENEFITS ASSOCIATED WITH THIS PROCEDURE. THE PATIENT WOULD LIKE TO PROCEED AND GIVE CONSENT TO PERFORMED THE PROCEDURE. THE PATIENT DENIES UNEXPLAINABLE WEIGHT LOSS, FEVER, CHILLS, OR NEW CHANGES IN URINARY OR BOWEL CONTROL DESCRIPTION OF PROCEDURE THE PATIENT WAS BROUGHT TO THE PROCEDURE ROOM AND PLACED IN THE PRONE POSITION. THE LUMBOSACRAL AREA WAS CLEANED WITH CHLORAPREP SOLUTION AND DRAPED ASEPTICALLY. THE PROCEDURE WAS DONE UNDER STERILE CONDITIONS. I CHECKED LATERALITY AND THE LEVEL WHERE THE PROCEDURE WAS GOING TO BE PERFORMED WITH THE PATIENT AND THE SUPPORTING STAFF AT THE MOMENT OF THE TIME OUT IN THE PROCEDURE ROOM. UNDER FLUOROSCOPIC GUIDANCE, TARGETS WERE SELECTED AT THE INTERSECTION OF THE RIGHT TRANSVERSE PROCESS OF L4, L5 AND ALA OF S1 WITH ITS RESPECTIVE SUPERIOR ARTICULAR PROCESS. LIDOCAINE WAS USED TO NUMB THE SKIN AND THE SUBCUTANEOUS TISSUE BELOW IT. RADIOFREQUENCY NEEDLES 22-GAUGE 15 CM LONG WITH 10 MM ACTIVE CURVE TIP WERE ADVANCED UNDER FLUOROSCOPIC GUIDANCE AND FOLLOWING PATIENT FEEDBACK UNTIL THE TARGET AREA WAS REACHED. POSITION OF THE NEEDLES WAS VERIFIED WITH AP AND LATERAL VIEWS. AFTER PROPER POSITION OF THE NEEDLE WAS ACHIEVED, WE WORKED WITH THE RIGHT SELECTED MEDIAN BRANCHES OF L3, L4 AND THE DORSAL RAMI OF L5. WE MEASURED THE CORRESPONDING IMPEDANCES, SENSORY STIMULATION AND MOTOR RESPONSES INDICATED IN THE RADIOFREQUENCY WORKSHEET. POSITION OF THE NEEDLES WAS VERIFIED AGAIN WITH AP AND LATERAL VIEWS. LIDOCAINE 1%, 2 ML, WAS INJECTED AT EACH LEVEL. RADIOFREQUENCY WAS DONE AT EACH LEVEL AT 80 DEGREES FOR 90 SECONDS. AFTER RADIOFREQUENCY WAS DONE, THE PATIENT RECEIVED BUPIVACAINE 0.125% 1 CC WITH KENALOG 5 MG AT EACH SITE. THERE WAS NO EVIDENCE OF BLOOD, PARESTHESIA OR CEREBROSPINAL FLUID DURING THE PROCEDURE. THE PATIENT WAS SENT TO THE RECOVERY ROOM. THE PATIENT WAS MOVING THE EXTREMITIES AND DOING WELL. THERE WAS NO COMPLICATION DURING THE PROCEDURE. FLUOROSCOPY TIME WAS 16 SECONDS POST PROCEDURE NOTE THE PATIENT WILL BE SEEN IN A FOLLOW UP IN THE NEXT FEW WEEKS. INSTRUCTIONS WERE GIVEN, QUESTIONS WERE ANSWERED, AND THE PATIENT EXPRESSED UNDERSTANDING AND AGREES WITH THE PLAN. I, ZBIGNIEW CARSON, DOCUMENTED THE ABOVE INFORMATION ACTING A SCRIBE FOR DR. WALL. I HAVE REVIEWED THE ABOVE DOCUMENT, WRITTEN BY ZBIGNIEW ODONNELL AND I VERIFY THAT IT IS ACCURATE. PROCEDURE CODES 6045F RADXPS IN END [id number] PXD 20802 DESTROY LUMB/SAC FACET JNT, MODIFIERS: [place] [address] DESTROY L/S FACET JNT ADDL, MODIFIERS: RT DISPOSITION & COMMUNICATION FOLLOW UP 3 WEEKS ELECTRONICALLY SIGNED BY JEANNETTE WALL MD, MD ON 11/26/2018 AT 06:19 PM EST DISCLAIMER : THIS IS A VISIT SUMMARY EXTRACTED FROM THE [employer] CHART. IT IS NOT A COPY OF THE [employer] PROGRESS NOTE. MASOOD
== END ==
LOC: M PAIN 13:00
PROVIDERS: ATTEND Anesthesiology
DX: G89.29 Other chronic pain (principal); M47.816 Spondylosis without myelopathy or radiculopathy, lumbar region; M47.817 Spondylosis without myelopathy or radiculopathy, lumbosacral region; E11.9 Type 2 diabetes mellitus without complications; I10 Essential (primary) hypertension; J45.909 Unspecified asthma, uncomplicated; G47.33 Obstructive sleep apnea (adult) (pediatric); E66.01 Morbid (severe) obesity due to excess calories; Z68.42 Body mass index [BMI] 45.0-49.9, adult; Z79.82 Long term (current) use of aspirin; Z79.4 Long term (current) use of insulin; Z79.899 Other long term (current) drug therapy
CPT/HCPCS: 64635; 64636; J3301

== ENCOUNTER → 2019-01-23 | Outpatient (CLI) | payer MEDICARE, MEDICAID ==
[~2019-01-23] MED LIST changes: -/ACETCOD2T PO; -/ROPI5TA PO; -/TRAZ10TA PO; +ACET1TAB15 PO; -BUPIVACAINE HCL 0.25% 30 ML VIAL As Ordered ONE; -LIDOCAINE 1% SDV INJ 30 ML VIAL As Ordered ONE; +REQU1TAB15 PO; +TRAZ1TAB25 PO; -TRIAMCINOLONE ACETONIDE SUSP 40 MG/ML VIAL (J3301) As Ordered ONE
--- NOTE | 2019-02-02 01:54 | ECWPNPC ---
PATIENT NAME: SERGIO WHITE : 1975 GENDER: MALE VISIT DATE: 01/23/2019 DISCHARGE DATE: 01/23/19 1005 VISIT LOCKED DATE TIME: PHYSICIAN: CHARLY HIGGINBOTHAM RESOURCE: CHARLY HIGGINBOTHAM REASON FOR APPOINTMENT 1. POST RF HISTORY OF PRESENT ILLNESS HISTORY OF PRESENT ILLNESS: HERE FOR POST PRCEDURE F/U.HAD RF RIGHT L4/5-L5/S1 ON11/13/18.DOING WELL WITH RIGHT LOW BACK PAIN POST PROCEDURE.REPORTING CONTINUES WITH LEFT LOW BACK PAIN POST PROCEDURE. LEFT LOW BACK PAIN IS 6/10.DISCUSSED LEFT DX #2 BLOCK. PAIN THE PATIENT DESCRIBES THE PAIN... FALL RISK SCREENING: SCREENING :NO FALLS REPORTED IN THE LAST YEAR CURRENT MEDICATIONS TAKING ASPIR-81 81 MG TABLET DELAYED RELEASE 1 TABLET ORALLY ONCE A DAY TAKING MAGNESIUM 65 MG TABLET 2 ORALLY TWICE DAILY TAKING LISINOPRIL 40 MG TABLET 1 TABLET ORALLY ONCE A DAY TAKING METFORMIN HCL 750 MG TABLET 1 TABLET WITH MEALS ORALLY BID TAKING GLIPIZIDE 10 MG TABLET 1 TABLET ORALLY ONCE A DAY TAKING VENTOLIN HFA 108 (90 BASE) MCG/ACT AEROSOL SOLUTION 2 PUFFS NEEDED INHALATION EVERY 4 HRS TAKING TOUJEO SOLOSTAR 300 UNIT/ML SOLUTION PEN-INJECTOR 110 UNITS SUBCUTANEOUS ONCE DAILY TAKING LANTUS SOLOSTAR 100 UNIT/ML SOLUTION PEN-INJECTOR 120 UNITS SUBCUTANEOUS DAILY TAKING POTASSIUM 99 MG TABLET 1 TABLET ORALLY ONCE A DAY TAKING DILTIAZEM HCL ER 240 MG CAPSULE EXTENDED RELEASE 24 HOUR 1 CAPSULE ON AN EMPTY STOMACH IN THE MORNING ORALLY ONCE A DAY TAKING TIZANIDINE HCL 4 MG TABLET 1 TABLET NEEDED ORALLY THREE TIMES A DAY TAKING TYLENOL WITH CODEINE #3 300-30 MG TABLET 1 TABLET ORALLY EVERY 6 HRS PRN PAIN MDD=4 TAKING PRAMIPEXOLE DIHYDROCHLORIDE 1.5 MG TABLET 1 TABLET ORALLY TAKE AT 7 PM AND 11 PM MDD=2 NOT-TAKING AMBIEN 10 MG TABLET 1 TABLET AT BEDTIME NEEDED ORALLY QHS NOT-TAKING BUPROPION HCL ER (XL) 300 MG TABLET EXTENDED RELEASE 24 HOUR 1 TABLET IN THE MORNING ORALLY ONCE A DAY MEDICATION LIST REVIEWED AND RECONCILED WITH THE PATIENT PAST MEDICAL HISTORY DIABETES CHRONIC BACK PAIN HYPERTENSION RYLAN ASTHMA ALLERGIES N.K.D.A. SURGICAL HISTORY NONE FAMILY HISTORY FATHER: , DIAGNOSED WITH DIABETES, HYPERTENSION, CANCER MOTHER: ALIVE, HYPERTENSION, DIABETES SIBLINGS: ALIVE 2 BROTHER(S) - HEALTHY. 2 SON(S) - HEALTHY. MOTHER - PARKINSON\'S. SOCIAL HISTORY GENERAL: TOBACCO USE ARE YOU A:NONSMOKER ALCOHOL SCREENING DID YOU HAVE A DRINK CONTAINING ALCOHOL IN THE PAST YEAR?NO POINTS0 INTERPRETATIONNEGATIVE RECREATIONAL DRUG USE: NEVER PAST USE OF: CURRENTLY USING:. CAFFEINE: YES CAFFEINE USE? CUP SODA DAILY SCIENTOLOGIST [id number] SPIRITISM LANGUAGE LANGUAGES SPOKEN:UGANDAN LEARNING BARRIERS / SPECIAL NEEDS CHANGE FROM LAST VISIT?NO BARRIERS TO LEARNING?NO HEARING IMPAIRED?NO VISION IMPAIRED?NO COGNITIVELY IMPAIRED?NO READINESS TO LEARN?YES LEARNING PREFERENCES?NO LEARNING CAPABILITIES PRESENT?NO EMOTIONAL BARRIERS?NO SPECIAL DEVICES?NO PLASTICS PROCESS HAND NEEDED?NO PAIN CLINIC PFS, CLERGY, PUBLIC HEALTH REFERRALS PFS REFERRAL NEEDED?NO CLERGY REFERRAL NEEDED?NO PUBLIC HEALTH REFERRAL NEEDED?NO WAS THE PROVIDER NOTIFIED OF ANY PERTINENT INFO?YES HAS THE PATIENT BEEN EDUCATED REGARDING HIS/HER PLAN OF CARE?YES HAS THE PATIENT BEEN EDUCATED REGARDING PAIN, THE RISK FOR PAIN, THE IMPORTANCE OF EFFECTIVE PAIN MANAGEMENT, AND THE PAIN ASSESSMENT PROCESS?YES ADVANCE DIRECTIVE ADVANCE DIRECTIVE DISCUSSED WITH PATIENT:YES PT HAS NO ADVANCED DIRECTIVES, DECLINED INFORMATIN OR ASSISTANCE AT THIS TIME REVIEWED TH PATIENT 09/07/18 0918 JSREVIEWED WITH PT 10/13/18 1054 LAS. HOSPITALIZATION/MAJOR DIAGNOSTIC PROCEDURE DENIES PAST HOSPITALIZATION REVIEW OF SYSTEMS REVIEWED BY: PROVIDER: CHARLY TSAI . CONSTITUTIONAL: ANY CHANGE IN YOUR MEDICAL CONDITION? NO . CHILLS NO . FEVER NO . INFECTION: DO YOU HAVE NEW INFECTIONS? NO . DO YOU HAVE HISTORY OF MRSA? NO . MUSCULOSKELETAL: ANY NEW PATTERNS OF PAIN OR NUMBNESS? NO . GASTROENTEROLOGY: ANY NEW CHANGE IN BOWEL CONTROL? NO . GENITOURINARY: ANY NEW CHANGE IN BLADDER CONTROL? NO . IS THERE A CHANCE YOU COULD BE ? NO . HEMATOLOGY/LYMPH: DO YOU TAKE ANY BLOOD THINNERS? (FOR EXAMPLE- COUMADIN, PLAVIX, AGGRENOX, PLATEL, PRADAXA, OR XARELTO) NO . WHEN WAS YOUR LAST DOSE? DATE: TIME: . NEUROLOGY: HAVE YOU FALLEN IN THE PAST 12 MONTHS? NO . ANY NEW EXTREMITY NUMBNESS OR WEAKNESS? NO . CARDIOLOGY: DO YOU HAVE A PACEMAKER OR DEFIBRILLATOR? NO . RESPIRATORY: HAVE YOU BEEN SICK IN THE PAST WEEK? NO . FEVER NO . FLU LIKE SYMPTOMS? NO . COUGH NO . INTEGUMENTARY: DO YOU HAVE ANY RASHES OR OPEN SORES? NO . ALLERGIC/IMMUNO: ARE YOU ALLERGIC TO IV DYE? NO . ANY NEW ALLERGIES? NO . PSYCHIATRIC: DO YOU HAVE THOUGHTS OF HURTING YOURSELF OR SOMEONE ELSE? NO . ARE YOU ABUSED, NEGLECTED, OR IN AN UNSAFE ENVIRONMENT? NO . ENDOCRINOLOGY: ARE YOU DIABETIC? YES . OTHER: DO YOU NEED ANY PRESCRIPTIONS? NO . IF YES, PLEASE LIST: ____ . ANY NEW PROBLEMS WITH YOUR MEDICATIONS? NO . WHEN DID YOU LAST EAT? ____ . WHEN DID YOU LAST DRINK? ____ . WHAT DID YOU LAST DRINK? ____ . NAME OF PERSON DRIVING YOU HOME? ____ . DO YOU HAVE ANY OTHER QUESTIONS OR CONCERNS YES, ? ABOUT RESTLESS LEG SYNDROME . VITAL SIGNS WT 417.8 LBS, HT 76.5 IN, BMI 50.19 INDEX, BP 150/90 MM HG, HR 92 /MIN, RR 18 /MIN, TEMP 99.0 F, OXYGEN SAT % 98%, NA INITIALS AW 0930, REVIEWED BY: EM. EXAMINATION GENERAL EXAMINATION: GENERAL APPEARANCE:AWAKE,ALERT ,PLEAASANT . PSYCHAFFECT NORMAL . LUNGS:LUNG CERDA ARE CLEAR TO AUSCULTATION BILATERALLY. GOOD MOVEMENT OF AIR . HEART:S1, S2 IN A REGULAR RATE AND RHYTHM. NO SIGNIFICANT MURMURS, RUBS OR GALLOPS NOTED . LUMBAR SACRAL SPINEPALPATION:TENDER OVER LEFT L4/5-L5/S1 LUMBAR FACETS WITH FACET LOADING.. ASSESSMENTS LUMBAR SPONDYLOSIS - M47.816 (PRIMARY) TREATMENT LUMBAR SPONDYLOSIS REFILL TYLENOL WITH CODEINE #3 TABLET, 300-30 MG, 1 TABLET, ORALLY, EVERY 6 HRS PRN PAIN MDD=4, 14 DAY(S), 60, REFILLS 2 CONTINUE TIZANIDINE HCL TABLET, 4 MG, 1 TABLET NEEDED, ORALLY, THREE TIMES A DAY CONTINUE PRAMIPEXOLE DIHYDROCHLORIDE TABLET, 1.5 MG, 1 TABLET, ORALLY, TAKE AT 7 PM AND 11 PM MDD=2 NOTES: LEFT L4/5-L5/S1 DX BLOCK#2, ISTOP REGISTRY REVIEWED AND DEMONSTRATES COMPLLIANCE. BRINGS IN MEDICATIONS WHICH IS APPROPRIATE FOR WHAT WAS DISPENSED. RECENT URINE TOXICOLOGY REVIEWED. NO UNAUTHORIZED MEDICATIONS. NO ILLICIT SUBSTANCES AND PRESCRIBED MEDICATIONS WERE PRESENT. , RISKS AND BENEFITS OF NARCOTIC/OPIOD MEDICATIONS WERE REVIEWED WITH PATIENT - THIS INCLUDES BUT IS NOT LIMITED TO RISK OF DEPENDANCE/DEVELOPMENT OF ADDICTION, MOOD DISTURBANCE AND DEPRESSION, OSTEOPOROSIS, HORMONAL AND LABIDAL CHANGES, RESPIRATORY DEPRESSION AND . PATIENT IS ADVISED NOT TO DRIVE OR DRINK ALCOHOL WHILE ON THESE MEDICATIONS. PROCEDURE CODES [id number] ESTABILISHED PATIENT [facility] CHARGE DISPOSITION & COMMUNICATION FOLLOW UP POST (REASON: LEFT L4/5-L5/S1 DX BLOCK#2) ELECTRONICALLY SIGNED BY EULALIO LIRA ON 02/01/2019 AT 04:45 PM EDT DISCLAIMER : THIS IS A VISIT SUMMARY EXTRACTED FROM THE [employer] CHART. IT IS NOT A COPY OF THE [employer] PROGRESS NOTE. MASOOD
== END ==
LOC: M PAIN 09:15
PROVIDERS: ATTEND Nurse Practitioner Family
DX: M47.816 Spondylosis without myelopathy or radiculopathy, lumbar region (principal); E11.9 Type 2 diabetes mellitus without complications; I10 Essential (primary) hypertension; G47.33 Obstructive sleep apnea (adult) (pediatric); J45.909 Unspecified asthma, uncomplicated; Z79.82 Long term (current) use of aspirin; Z79.4 Long term (current) use of insulin; Z79.899 Other long term (current) drug therapy

== ENCOUNTER → 2019-02-20 | Outpatient (CLI) | payer MEDICARE, MEDICAID ==
[~2019-02-20] MED LIST changes: +BUPIVACAINE HCL 0.25% 30 ML VIAL As Ordered ONE; +ISOVUE-M 300 61% 15ML VIAL (Q9967) As Ordered ONE; +LIDOCAINE 1% SDV INJ 30 ML VIAL As Ordered ONE
--- NOTE | 2019-02-21 14:57 | REP ---
C-ARM VIEWS DURING LEFT LUMBAR FACET INJECTION: CLINICAL HISTORY: Pain. Two C-arm views are performed during left lumbar facet injection. [place] are seen along the left lower lumbar facets. Injection is performed by Dr. Stubbs. 41 seconds fluoroscopy time utilized. Electronically Signed by Eleazar Zee MD 02/23/2019 11:53 A
--- NOTE | 2019-03-05 00:25 | ECWPNPC ---
PATIENT NAME: SERGIO WHITE : 1975 GENDER: MALE VISIT DATE: 02/20/2019 DISCHARGE DATE: 02/20/19 1017 VISIT LOCKED DATE TIME: PHYSICIAN: JEANNETTE WALL MD RESOURCE: JEANNETTE WALL MD REASON FOR APPOINTMENT 1. LEFT L5/S1-S1/S2 DX BLOCK#2 HISTORY OF PRESENT ILLNESS HISTORY OF PRESENT ILLNESS: PAIN THE PATIENT DESCRIBES THE PAIN... FALL RISK SCREENING: SCREENING :NO FALLS REPORTED IN THE LAST YEAR CURRENT MEDICATIONS TAKING ADVAIR DISKUS 100-50 MCG/DOSE MISCELLANEOUS DIRECTED INHALATION , NOTES: 02-19-19699 TAKING ASPIR-81 81 MG TABLET DELAYED RELEASE 1 TABLET ORALLY ONCE A DAY, NOTES: 02-19-19799 TAKING MAGNESIUM 65 MG TABLET 2 ORALLY TWICE DAILY, NOTES: 899 TAKING LISINOPRIL 40 MG TABLET 1 TABLET ORALLY ONCE A DAY, NOTES: 02-19-19899 TAKING METFORMIN HCL 750 MG TABLET 1 TABLET WITH MEALS ORALLY BID, NOTES: 02-19-19899 TAKING GLIPIZIDE 10 MG TABLET 1 TABLET ORALLY ONCE A DAY, NOTES: 02-19-19899 TAKING TOUJEO SOLOSTAR 300 UNIT/ML SOLUTION PEN-INJECTOR 110 UNITS SUBCUTANEOUS ONCE DAILY, NOTES: 02-19-19799 TAKING LANTUS SOLOSTAR 100 UNIT/ML SOLUTION PEN-INJECTOR 120 UNITS SUBCUTANEOUS DAILY, NOTES: 02-19-19899 TAKING POTASSIUM 99 MG TABLET 1 TABLET ORALLY ONCE A DAY, NOTES: 02-19-19899 TAKING DILTIAZEM HCL ER 240 MG CAPSULE EXTENDED RELEASE 24 HOUR 1 CAPSULE ON AN EMPTY STOMACH IN THE MORNING ORALLY ONCE A DAY, NOTES: 02-19-19899 TAKING TYLENOL WITH CODEINE #3 300-30 MG TABLET 1 TABLET ORALLY EVERY 6 HRS PRN PAIN MDD=4, NOTES: 02-19-19899 TAKING TIZANIDINE HCL 4 MG TABLET 1 TABLET NEEDED ORALLY THREE TIMES A DAY, NOTES: 02-19-192099 TAKING PRAMIPEXOLE DIHYDROCHLORIDE 1.5 MG TABLET 1 TABLET ORALLY TAKE AT 7 PM AND 11 PM MDD=2, NOTES: 02-19-19899 NOT-TAKING VENTOLIN HFA 108 (90 BASE) MCG/ACT AEROSOL SOLUTION 2 PUFFS NEEDED INHALATION EVERY 4 HRS, NOTES: NOT LATELY NOT-TAKING AMBIEN 10 MG TABLET 1 TABLET AT BEDTIME NEEDED ORALLY QHS NOT-TAKING BUPROPION HCL ER (XL) 300 MG TABLET EXTENDED RELEASE 24 HOUR 1 TABLET IN THE MORNING ORALLY ONCE A DAY MEDICATION LIST REVIEWED AND RECONCILED WITH THE PATIENT PAST MEDICAL HISTORY DIABETES CHRONIC BACK PAIN HYPERTENSION RYLAN ASTHMA ALLERGIES N.K.D.A. SURGICAL HISTORY NONE FAMILY HISTORY FATHER: , DIAGNOSED WITH DIABETES, HYPERTENSION, CANCER MOTHER: ALIVE, HYPERTENSION, DIABETES SIBLINGS: ALIVE 2 BROTHER(S) - HEALTHY. 2 SON(S) - HEALTHY. MOTHER - PARKINSON\\\'S. SOCIAL HISTORY GENERAL: TOBACCO USE ARE YOU A:NONSMOKER PAIN CLINIC PFS, CLERGY, PUBLIC HEALTH REFERRALS PFS REFERRAL NEEDED?NO CLERGY REFERRAL NEEDED?NO PUBLIC HEALTH REFERRAL NEEDED?NO WAS THE PROVIDER NOTIFIED OF ANY PERTINENT INFO?YES HAS THE PATIENT BEEN EDUCATED REGARDING HIS/HER PLAN OF CARE?YES HAS THE PATIENT BEEN EDUCATED REGARDING PAIN, THE RISK FOR PAIN, THE IMPORTANCE OF EFFECTIVE PAIN MANAGEMENT, AND THE PAIN ASSESSMENT PROCESS?YES CAFFEINE: YES CAFFEINE USE? CUP SODA DAILY ADVANCE DIRECTIVE ADVANCE DIRECTIVE DISCUSSED WITH PATIENT:YES PT HAS NO ADVANCED DIRECTIVES, DECLINED INFORMATIN OR ASSISTANCE AT THIS TIME RESTORATIONISM [id number] SPIRITISM LANGUAGE LANGUAGES SPOKEN:MONGOLIAN ALCOHOL SCREENING DID YOU HAVE A DRINK CONTAINING ALCOHOL IN THE PAST YEAR?NO POINTS0 INTERPRETATIONNEGATIVE RECREATIONAL DRUG USE: NEVER PAST USE OF: CURRENTLY USING:. LEARNING BARRIERS / SPECIAL NEEDS CHANGE FROM LAST VISIT?NO BARRIERS TO LEARNING?NO HEARING IMPAIRED?NO VISION IMPAIRED?NO COGNITIVELY IMPAIRED?NO READINESS TO LEARN?YES LEARNING PREFERENCES?NO LEARNING CAPABILITIES PRESENT?NO EMOTIONAL BARRIERS?NO SPECIAL DEVICES?NO WOOD SAWYER NEEDED?NO REVIEWED PATIENT 09/07/18 0918 JSREVIEWED WITH PT 10/13/18 1054 LAS. HOSPITALIZATION/MAJOR DIAGNOSTIC PROCEDURE NO HOSPITALIZATION HISTORY. REVIEW OF SYSTEMS REVIEWED BY: PROVIDER: . CONSTITUTIONAL: ANY CHANGE IN YOUR MEDICAL CONDITION? NO . CHILLS NO . FEVER NO . INFECTION: DO YOU HAVE NEW INFECTIONS? NO . DO YOU HAVE HISTORY OF MRSA? NO . MUSCULOSKELETAL: ANY NEW PATTERNS OF PAIN OR NUMBNESS? NO . GASTROENTEROLOGY: ANY NEW CHANGE IN BOWEL CONTROL? NO . GENITOURINARY: ANY NEW CHANGE IN BLADDER CONTROL? NO . IS THERE A CHANCE YOU COULD BE ? NO . HEMATOLOGY/LYMPH: DO YOU TAKE ANY BLOOD THINNERS? (FOR EXAMPLE- COUMADIN, PLAVIX, AGGRENOX, PLATEL, PRADAXA, OR XARELTO) NO . WHEN WAS YOUR LAST DOSE? DATE: TIME: . NEUROLOGY: HAVE YOU FALLEN IN THE PAST 12 MONTHS? NO . ANY NEW EXTREMITY NUMBNESS OR WEAKNESS? NO . CARDIOLOGY: DO YOU HAVE A PACEMAKER OR DEFIBRILLATOR? NO . RESPIRATORY: HAVE YOU BEEN SICK IN THE PAST WEEK? NO . FEVER NO . FLU LIKE SYMPTOMS? NO . COUGH NO . INTEGUMENTARY: DO YOU HAVE ANY RASHES OR OPEN SORES? NO . ALLERGIC/IMMUNO: ARE YOU ALLERGIC TO IV DYE? NO . ANY NEW ALLERGIES? NO . PSYCHIATRIC: DO YOU HAVE THOUGHTS OF HURTING YOURSELF OR SOMEONE ELSE? NO . ARE YOU ABUSED, NEGLECTED, OR IN AN UNSAFE ENVIRONMENT? NO . ENDOCRINOLOGY: ARE YOU DIABETIC? YES . OTHER: DO YOU NEED ANY PRESCRIPTIONS? NO . IF YES, PLEASE LIST: ____ . ANY NEW PROBLEMS WITH YOUR MEDICATIONS? NO . WHEN DID YOU LAST EAT? ____[phone] PM . WHEN DID YOU LAST DRINK? ____02-20-19199 . WHAT DID YOU LAST DRINK? ____WATER . NAME OF PERSON DRIVING YOU HOME? ____SABRINA . DO YOU HAVE ANY OTHER QUESTIONS OR CONCERNS NO . VITAL SIGNS WT 416.8 LBS, HT 76.5 IN, BMI 50.07 INDEX, BP 180/103 MM HG, REPEAT BP 160/80 MANUAL, HR 96 /MIN, RR 18 /MIN, TEMP 99.5 F, OXYGEN SAT % 98%, SAFE IN ENV? (Y/N) YES, NA INITIALS PA 09:01. ASSESSMENTS SPONDYLOSIS OF LUMBOSACRAL REGION WITHOUT MYELOPATHY OR RADICULOPATHY - M47.817 (PRIMARY) PROCEDURES PN LUMBAR FACET BLOCK DIAGNOSTIC PRE PROCEDURE DIAGNOSIS LUMBOSACRAL SPONDYLOSIS POST PROCEDURE DIAGNOSIS LUMBOSACRAL SPONDYLOSIS PROCEDURE LEFT L5-S1 AND LEFT S1-S2 FACET BLOCK DIAGNOSTIC NUMBER [address] JEANNETTE WALL CHAIR SPRING ASSEMBLER NONE ANESTHESIA LOCAL PRE PROCEDURE NOTE THE PATIENT WITH HISTORY OF CHRONIC LOW BACK PAIN. I EVALUATED THE PATIENT AND REVIEWED THE CHART. I WENT OVER THE RISKS, ALTERNATIVES, AND BENEFITS ASSOCIATED WITH THIS PROCEDURE. THE PATIENT WOULD LIKE TO PROCEED AND GAVE CONSENT TO PERFORM THE PROCEDURE. AGREED WITH THE PATIENT WE ARE DOING THIS PROCEDURE TO DETERMINE IF THE PATIENT IS A CANDIDATE FOR A RADIOFREQUENCY ABLATION OF THE FACETS JOINTS. THE PATIENT DENIES UNEXPLAINABLE WEIGHT LOSS, FEVER, CHILLS, OR NEW CHANGES IN URINARY OR BOWEL CONTROL DESCRIPTION OF PROCEDURE THE PATIENT WAS BROUGHT TO THE PROCEDURE ROOM AND PLACED IN THE PRONE POSITION. THE LUMBOSACRAL AREA WAS CLEANED WITH CHLORAPREP SOLUTION AND DRAPED ASEPTICALLY. THE PROCEDURE WAS DONE UNDER STERILE CONDITIONS. I CHECKED LATERALITY AND THE LEVEL WHERE THE PROCEDURE WAS GOING TO BE PERFORMED WITH THE PATIENT AND THE SUPPORTING STAFF AT THE MOMENT OF THE TIME OUT IN THE PROCEDURE ROOM. UNDER FLUOROSCOPIC GUIDANCE, TARGETS WERE SELECTED AT THE INTERSECTION OF THE LEFT TRANSVERSE PROCESS OF L5 AND ALA OF S1 AND S2 WITH ITS RESPECTIVE SUPERIOR ARTICULAR PROCESS. THERE IS A LUMBARIZATION OF THE SACRAL SEGMENT OF S1. LIDOCAINE WAS USED TO NUMB THE SKIN AND THE SUBCUTANEOUS TISSUE BELOW IT. SPINAL NEEDLE, 22-GAUGE WAS ADVANCED UNDER FLUOROSCOPIC GUIDANCE AND FOLLOWING PATIENT FEEDBACK UNTIL THE TARGETS WERE REACHED. POSITION OF THE NEEDLES WAS VERIFIED WITH AP AND LATERAL VIEWS. AFTER PROPER POSITION OF THE NEEDLES WAS ACHIEVED, ISOVUE-M DYE 30% 0.1 ML WAS INJECTED AT EACH SITE SHOWING ADEQUATE SPREAD OF THE DYE. THEN A SOLUTION OF 0.4 ML OF BUPIVACAINE 0.25% WAS INJECTED AT EACH SITE. THERE WAS NO EVIDENCE OF BLOOD, PARESTHESIA OR CEREBROSPINAL FLUID DURING THE PROCEDURE. THE PATIENT WAS SENT TO THE RECOVERY ROOM. THE PATIENT WAS MOVING THE EXTREMITIES AND DOING WELL. THERE WAS NO COMPLICATION DURING THE PROCEDURE. FLUOROSCOPY TIME WAS 41 SECONDS POST PROCEDURE NOTE THE PATIENT WILL DOCUMENT HIS PAIN LEVEL AND RESPONSE TO THIS PROCEDURE EVERY 30 MINUTES. THE PATIENT WILL BE SEEN IN A FOLLOW UP IN THE NEXT FEW WEEKS. FURTHER DETERMINATION FOR HIS CASE WILL BE DONE AT THE NEXT VISIT. INSTRUCTIONS WERE GIVEN, QUESTIONS WERE ANSWERED, AND THE PATIENT EXPRESSED UNDERSTANDING AND AGREED WITH THE PLAN. I, ROXANNA OSMAN, DOCUMENTED THE ABOVE INFORMATION ACTING A SCRIBE FOR DR. WALL. I HAVE REVIEWED THE ABOVE DOCUMENT, WRITTEN BY ROXANNA OSMAN SCRIBIker AND I VERIFY THAT IT IS ACCURATE. DIAGNOSTIC IMAGING [facility] FACET BLOCK (PAIN)[id number] PROCEDURE CODES 33924 INJ PARAVERT F JNT L/S 1 LEV, [place]IFI[place]: [place] [address]76 INJ PARAVERT F JNT L/S 2 LEV, MODIFIERS: LT 6045F RADXPS IN END [id number] PXD DISPOSITION & COMMUNICATION FOLLOW UP 3 WEEKS ELECTRONICALLY SIGNED BY JEANNETTE WALL MD, MD ON 03/04/2019 AT 04:24 PM EDT DISCLAIMER : THIS IS A VISIT SUMMARY EXTRACTED FROM THE [employer] CHART. IT IS NOT A COPY OF THE [employer] PROGRESS NOTE. MTDD
== END ==
LOC: M PAIN 08:45
PROVIDERS: ATTEND Anesthesiology
DX: G89.29 Other chronic pain (principal); M47.817 Spondylosis without myelopathy or radiculopathy, lumbosacral region; E11.9 Type 2 diabetes mellitus without complications; I10 Essential (primary) hypertension; J45.909 Unspecified asthma, uncomplicated; G47.33 Obstructive sleep apnea (adult) (pediatric); E66.01 Morbid (severe) obesity due to excess calories; Z68.43 Body mass index [BMI] 50.0-59.9, adult; Z79.82 Long term (current) use of aspirin; Z79.4 Long term (current) use of insulin; Z79.899 Other long term (current) drug therapy
CPT/HCPCS: 64493; 64494; Q9967

== ENCOUNTER → 2019-03-22 | Outpatient (CLI) | payer MEDICARE, MEDICAID ==
[~2019-03-22] MED LIST changes: -BUPIVACAINE HCL 0.25% 30 ML VIAL As Ordered ONE; -ISOVUE-M 300 61% 15ML VIAL (Q9967) As Ordered ONE; -LIDOCAINE 1% SDV INJ 30 ML VIAL As Ordered ONE
--- NOTE | 2019-04-03 03:05 | ECWPNPC ---
PATIENT NAME: SERGIO WHITE : 1975 GENDER: MALE VISIT DATE: 03/22/2019 DISCHARGE DATE: 03/22/19957 VISIT LOCKED DATE TIME: PHYSICIAN: CHARLY HIGGINBOTHAM RESOURCE: CHARLY HIGGINBOTHAM DISCLAIMER : THIS IS A VISIT SUMMARY [facility]TRACTED FROM THE [facility] CH[facility]. IT IS NOT A COPY OF THE [employer] PROGRESS NOTE. MASOOD
== END ==
LOC: M PAIN 09:00
PROVIDERS: ATTEND Nurse Practitioner Family
DX: M47.816 Spondylosis without myelopathy or radiculopathy, lumbar region (principal); E11.9 Type 2 diabetes mellitus without complications; I10 Essential (primary) hypertension; G47.33 Obstructive sleep apnea (adult) (pediatric); J45.909 Unspecified asthma, uncomplicated; E66.01 Morbid (severe) obesity due to excess calories; Z68.42 Body mass index [BMI] 45.0-49.9, adult; Z79.82 Long term (current) use of aspirin; Z79.4 Long term (current) use of insulin; Z79.891 Long term (current) use of opiate analgesic; Z79.899 Other long term (current) drug therapy

== ENCOUNTER → 2019-05-29 | Outpatient (CLI) | payer MEDICARE, MEDICAID ==
[~2019-05-29] MED LIST changes: +BUPIVACAINE HCL 0.25% 30 ML VIAL As Ordered ONE; +LIDOCAINE 1% SDV INJ 30 ML VIAL As Ordered ONE; +TRIAMCINOLONE ACETONIDE SUSP 40 MG/ML VIAL (J3301) As Ordered ONE
--- NOTE | 2019-05-30 07:40 | REP ---
C-ARM VIEWS LUMBAR SPINE: CLINICAL HISTORY: Pain. Three C-arm views of the lower lumbar spine performed during lumbar injection performed by Dr. Stubbs. [place] are seen along the lower lumbar spine region. 27 seconds of fluoroscopy time is utilized. Electronically Signed by Eleazar Zee MD 05/31/2019 12:19 A
--- NOTE | 2019-06-06 01:22 | ECWPNPC ---
PATIENT NAME: SERGIO WHITE : 1975 GENDER: MALE VISIT DATE: 05/29/2019 DISCHARGE DATE: 05/29/19 1207 VISIT LOCKED DATE TIME: PHYSICIAN: JEANNETTE WALL MD RESOURCE: JEANNETTE WALL MD REASON FOR APPOINTMENT 1. LEFT L4/L5, L5/S1 RF HISTORY OF PRESENT ILLNESS HISTORY OF PRESENT ILLNESS: PAIN THE PATIENT DESCRIBES THE PAIN... FALL RISK SCREENING: SCREENING :NO FALLS REPORTED IN THE LAST YEAR CURRENT MEDICATIONS TAKING ADVAIR DISKUS 100-50 MCG/DOSE MISCELLANEOUS DIRECTED INHALATION , NOTES: 05-29-19699 TAKING ASPIR-81 81 MG TABLET DELAYED RELEASE 1 TABLET ORALLY ONCE A DAY, NOTES: 05-28-19899 TAKING MAGNESIUM 65 MG TABLET 2 ORALLY TWICE DAILY, NOTES: 05-28-19 TAKING LISINOPRIL 40 MG TABLET 1 TABLET ORALLY ONCE A DAY, NOTES: 05-28-192099 TAKING METFORMIN HCL 750 MG TABLET 1 TABLET WITH MEALS ORALLY BID, NOTES: 05-28-191899 TAKING TOUJEO SOLOSTAR 300 UNIT/ML SOLUTION PEN-INJECTOR 110 UNITS SUBCUTANEOUS ONCE DAILY, NOTES: 05-28-19799 TAKING LANTUS SOLOSTAR 100 UNIT/ML SOLUTION PEN-INJECTOR 120 UNITS SUBCUTANEOUS DAILY, NOTES: 05-28-19699 TAKING POTASSIUM 99 MG TABLET 1 TABLET ORALLY ONCE A DAY, NOTES: 05-28-192099 TAKING DILTIAZEM HCL ER 240 MG CAPSULE EXTENDED RELEASE 24 HOUR 1 CAPSULE ON AN EMPTY STOMACH IN THE MORNING ORALLY ONCE A DAY, NOTES: 05-28-192099 TAKING TIZANIDINE HCL 4 MG TABLET 1 TABLET NEEDED ORALLY THREE TIMES A DAY, NOTES: 05-28-192099 TAKING PRAMIPEXOLE DIHYDROCHLORIDE 1.5 MG TABLET 1 TABLET ORALLY TAKE AT 7 PM AND 11 PM MDD=2, NOTES: 05-28-192099 TAKING TYLENOL WITH CODEINE #3 300-30 MG TABLET 1 TABLET ORALLY EVERY 6 HRS PRN PAIN MDD=4, NOTES: 05-28-192099 NOT-TAKING VENTOLIN HFA 108 (90 BASE) MCG/ACT AEROSOL SOLUTION 2 PUFFS NEEDED INHALATION EVERY 4 HRS, NOTES: NOT LATELY NOT-TAKING AMBIEN 10 MG TABLET 1 TABLET AT BEDTIME NEEDED ORALLY QHS NOT-TAKING BUPROPION HCL ER (XL) 300 MG TABLET EXTENDED RELEASE 24 HOUR 1 TABLET IN THE MORNING ORALLY ONCE A DAY MEDICATION LIST REVIEWED AND RECONCILED WITH THE PATIENT PAST MEDICAL HISTORY DIABETES CHRONIC BACK PAIN HYPERTENSION RYLAN ASTHMA ALLERGIES N.K.D.A. SURGICAL HISTORY NONE FAMILY HISTORY FATHER: , DIAGNOSED WITH DIABETES, HYPERTENSION, CANCER MOTHER: ALIVE, HYPERTENSION, DIABETES SIBLINGS: ALIVE 2 BROTHER(S) - HEALTHY. 2 SON(S) - HEALTHY. MOTHER - PARKINSON\\\'S. HOSPITALIZATION/MAJOR DIAGNOSTIC PROCEDURE NO HOSPITALIZATION HISTORY. REVIEW OF SYSTEMS REVIEWED BY: PROVIDER: . CONSTITUTIONAL: ANY CHANGE IN YOUR MEDICAL CONDITION? NO . CHILLS NO . FEVER NO . INFECTION: DO YOU HAVE NEW INFECTIONS? NO . DO YOU HAVE HISTORY OF MRSA? NO . MUSCULOSKELETAL: ANY NEW PATTERNS OF PAIN OR NUMBNESS? NO . GASTROENTEROLOGY: ANY NEW CHANGE IN BOWEL CONTROL? NO . GENITOURINARY: ANY NEW CHANGE IN BLADDER CONTROL? NO . IS THERE A CHANCE YOU COULD BE ? NO . HEMATOLOGY/LYMPH: DO YOU TAKE ANY BLOOD THINNERS? (FOR EXAMPLE- COUMADIN, PLAVIX, AGGRENOX, PLATEL, PRADAXA, OR XARELTO) NO . WHEN WAS YOUR LAST DOSE? DATE: TIME: . NEUROLOGY: HAVE YOU FALLEN IN THE PAST 12 MONTHS? NO . ANY NEW EXTREMITY NUMBNESS OR WEAKNESS? NO . CARDIOLOGY: DO YOU HAVE A PACEMAKER OR DEFIBRILLATOR? NO . RESPIRATORY: HAVE YOU BEEN SICK IN THE PAST WEEK? NO . FEVER NO . FLU LIKE SYMPTOMS? NO . COUGH NO . INTEGUMENTARY: DO YOU HAVE ANY RASHES OR OPEN SORES? NO . ALLERGIC/IMMUNO: ARE YOU ALLERGIC TO IV DYE? NO . ANY NEW ALLERGIES? NO . PSYCHIATRIC: DO YOU HAVE THOUGHTS OF HURTING YOURSELF OR SOMEONE ELSE? NO . ARE YOU ABUSED, NEGLECTED, OR IN AN UNSAFE ENVIRONMENT? NO . ENDOCRINOLOGY: ARE YOU DIABETIC? YES FSBS @ 0910 WAS 269 . OTHER: DO YOU NEED ANY PRESCRIPTIONS? NO . IF YES, PLEASE LIST: ____ . ANY NEW PROBLEMS WITH YOUR MEDICATIONS? NO . WHEN DID YOU LAST EAT? ____05-28-19 1900 . WHEN DID YOU LAST DRINK? ____05-29-19 0800 . WHAT DID YOU LAST DRINK? ____WATER . NAME OF PERSON DRIVING YOU HOME? ____SABRINA . DO YOU HAVE ANY OTHER QUESTIONS OR CONCERNS NO . VITAL SIGNS WT 409 LBS, HT 76.5 IN, BMI 49.13 INDEX, BP 165/79 MM HG, HR 96 /MIN, RR 18 /MIN, TEMP 98.7 F, OXYGEN SAT % 97%, NA INITIALS SC 10:07, REVIEWED BY: YES. ASSESSMENTS SPONDYLOSIS OF LUMBAR REGION WITHOUT MYELOPATHY OR RADICULOPATHY - M47.816 (PRIMARY) SPONDYLOSIS OF LUMBOSACRAL REGION WITHOUT MYELOPATHY OR RADICULOPATHY - M47.817 PROCEDURES PN RADIOFREQUENCY PRE PROCEDURE DIAGNOSES 1. LUMBAR SPONDYLOSIS. 2. LUMBOSACRAL SPONDYLOSIS POST PROCEDURE DIAGNOSES 1. LUMBAR SPONDYLOSIS. 2. LUMBOSACRAL SPONDYLOSIS PROCEDURE LEFT L4-L5 AND LEFT L5-S1 LUMBAR FACET RADIOFREQUENCY SURGEON DR. JEANNETTE WALL HOSPITAL SUPERVISOR NONE ANESTHESIA LOCAL PRE PROCEDURE REPORT THE PATIENT HAS HISTORY OF CHRONIC LOW BACK PAIN. I EVALUATE THE PATIENT AND REVIEWED THE CHART. I WENT OVER THE RISKS, ALTERNATIVES, AND BENEFITS ASSOCIATED WITH THIS PROCEDURE. THE PATIENT WOULD LIKE TO PROCEED AND GIVE CONSENT TO PERFORMED THE PROCEDURE. THE PATIENT DENIES UNEXPLAINABLE WEIGHT LOSS, FEVER, CHILLS, OR NEW CHANGES IN URINARY OR BOWEL CONTROL DESCRIPTION OF PROCEDURE THE PATIENT WAS BROUGHT TO THE PROCEDURE ROOM AND PLACED IN THE PRONE POSITION. THE LUMBOSACRAL AREA WAS CLEANED WITH CHLORAPREP SOLUTION AND DRAPED ASEPTICALLY. THE PROCEDURE WAS DONE UNDER STERILE CONDITIONS. I CHECKED LATERALITY AND THE LEVEL WHERE THE PROCEDURE WAS GOING TO BE PERFORMED WITH THE PATIENT AND THE SUPPORTING STAFF AT THE MOMENT OF THE TIME OUT IN THE PROCEDURE ROOM. UNDER FLUOROSCOPIC GUIDANCE, TARGETS WERE SELECTED AT THE INTERSECTION OF THE LEFT TRANSVERSE PROCESS OF L4, L5 AND ALA OF S1 WITH ITS RESPECTIVE SUPERIOR ARTICULAR PROCESS. LIDOCAINE WAS USED TO NUMB THE SKIN AND THE SUBCUTANEOUS TISSUE BELOW IT. RADIOFREQUENCY NEEDLES 22-GAUGE 15 CM LONG WITH 10 MM ACTIVE CURVE TIP WERE ADVANCED UNDER FLUOROSCOPIC GUIDANCE AND FOLLOWING PATIENT FEEDBACK UNTIL THE TARGET AREA WAS REACHED. POSITION OF THE NEEDLES WAS VERIFIED WITH AP AND LATERAL VIEWS. AFTER PROPER POSITION OF THE NEEDLE WAS ACHIEVED, WE WORKED WITH THE LEFT SELECTED MEDIAN BRANCHES OF L3, L4 AND THE DORSAL RAMI OF L5. WE MEASURED THE CORRESPONDING IMPEDANCES, SENSORY STIMULATION AND MOTOR RESPONSES INDICATED IN THE RADIOFREQUENCY WORKSHEET. POSITION OF THE NEEDLES WAS VERIFIED AGAIN WITH AP AND LATERAL VIEWS. LIDOCAINE 1%, 2 ML, WAS INJECTED AT EACH LEVEL. RADIOFREQUENCY WAS DONE AT EACH LEVEL AT 80 DEGREES FOR 90 SECONDS. AFTER RADIOFREQUENCY WAS DONE, THE PATIENT RECEIVED BUPIVACAINE 0.125% 1 CC WITH KENALOG 5 MG AT EACH SITE. THERE WAS NO EVIDENCE OF BLOOD, PARESTHESIA OR CEREBROSPINAL FLUID DURING THE PROCEDURE. THE PATIENT WAS SENT TO THE RECOVERY ROOM. THE PATIENT WAS MOVING THE EXTREMITIES AND DOING WELL. THERE WAS NO COMPLICATION DURING THE PROCEDURE. FLUOROSCOPY TIME WAS 27 SECONDS POST PROCEDURE NOTE THE PATIENT WILL BE SEEN IN A FOLLOW UP IN THE NEXT FEW WEEKS. INSTRUCTIONS WERE GIVEN, QUESTIONS WERE ANSWERED, AND THE PATIENT EXPRESSED UNDERSTANDING AND AGREES WITH THE PLAN. I, ZBIGNIEW CARSON, DOCUMENTED THE ABOVE INFORMATION ACTING A SCRIBE FOR DR. WALL. I HAVE REVIEWED THE ABOVE DOCUMENT, WRITTEN BY ZBIGNIEW ROBLESIBIker AND I VERIFY THAT IT IS ACCURATE. DIAGNOSTIC IMAGING [facility] FACET BLOCK (PAIN)[id number] PROCEDURE CODES 6045F RADXPS IN END [id number] PXD 31585 DESTROY LUMB/SAC [place] J[place], [place]: [place] [address] DESTROY L/S FACET JNT ADDL, MODIFIERS: LT DISPOSITION & COMMUNICATION FOLLOW UP 3 WEEKS ELECTRONICALLY SIGNED BY JEANNETTE WALL MD, MD ON 06/05/2019 AT 01:46 PM EDT DISCLAIMER : THIS IS A VISIT SUMMARY EXTRACTED FROM THE [employer] CHART. IT IS NOT A COPY OF THE [employer] PROGRESS NOTE. MTDD
== END ==
LOC: M PAIN 10:00
PROVIDERS: ATTEND Anesthesiology
DX: M47.816 Spondylosis without myelopathy or radiculopathy, lumbar region (principal); M47.817 Spondylosis without myelopathy or radiculopathy, lumbosacral region; E11.9 Type 2 diabetes mellitus without complications; I10 Essential (primary) hypertension; G47.33 Obstructive sleep apnea (adult) (pediatric); J45.909 Unspecified asthma, uncomplicated; Z79.82 Long term (current) use of aspirin; Z79.4 Long term (current) use of insulin; Z79.899 Other long term (current) drug therapy
CPT/HCPCS: 64635; 64636; J3301

== ENCOUNTER → 2019-06-26 | Outpatient (CLI) | payer MEDICARE, MEDICAID ==
[~2019-06-26] MED LIST changes: -BUPIVACAINE HCL 0.25% 30 ML VIAL As Ordered ONE; -LIDOCAINE 1% SDV INJ 30 ML VIAL As Ordered ONE; -TRIAMCINOLONE ACETONIDE SUSP 40 MG/ML VIAL (J3301) As Ordered ONE
--- NOTE | 2019-07-11 00:57 | ECWPNPC ---
PATIENT NAME: SERGIO WHITE : 1975 GENDER: MALE VISIT DATE: 06/26/2019 DISCHARGE DATE: 06/26/19 1234 VISIT LOCKED DATE TIME: PHYSICIAN: CHARLY HIGGINBOTHAM RESOURCE: CHARLY HIGGINBOTHAM REASON FOR APPOINTMENT 1. POST RF HISTORY OF PRESENT ILLNESS HISTORY OF PRESENT ILLNESS: HERE FOR POST PROCEDURE F/U.HAD RF LEFT L4/5-L5/S1 ON .REPORTING NO IMPROVEMENT POST PROCEDURE.RATING LBP 7/10.REPORTING SEVERE INCREASE IN LBP AND BILAT. LEG CRAMPING OVER THE PAST L>R OVER THE PAST 3 WEEKS.REPORTING POOR SLEEP DUE TO PAIN.NO RECENT MRI L/S SPINE.FINDS CURRENT CHRONIC PAIN MEDICATION NOT EFFECTIVE SINCE FLARE UP IN PAIN. PAIN THE PATIENT DESCRIBES THE PAIN... THE PATIENT DESCRIBES THE PAIN... FALL RISK SCREENING: SCREENING :NO FALLS REPORTED IN THE LAST YEAR CURRENT MEDICATIONS TAKING ADVAIR DISKUS 100-50 MCG/DOSE MISCELLANEOUS DIRECTED INHALATION TAKING ASPIR-81 81 MG TABLET DELAYED RELEASE 1 TABLET ORALLY ONCE A DAY TAKING MAGNESIUM 65 MG TABLET 2 ORALLY TWICE DAILY TAKING LISINOPRIL 40 MG TABLET 1 TABLET ORALLY ONCE A DAY TAKING METFORMIN HCL 750 MG TABLET 1 TABLET WITH MEALS ORALLY BID TAKING TOUJEO SOLOSTAR 300 UNIT/ML SOLUTION PEN-INJECTOR 110 UNITS SUBCUTANEOUS ONCE DAILY TAKING LANTUS SOLOSTAR 100 UNIT/ML SOLUTION PEN-INJECTOR 120 UNITS SUBCUTANEOUS DAILY TAKING POTASSIUM 99 MG TABLET 1 TABLET ORALLY ONCE A DAY TAKING DILTIAZEM HCL ER 240 MG CAPSULE EXTENDED RELEASE 24 HOUR 1 CAPSULE ON AN EMPTY STOMACH IN THE MORNING ORALLY ONCE A DAY TAKING TIZANIDINE HCL 4 MG TABLET 1 TABLET NEEDED ORALLY THREE TIMES A DAY TAKING PRAMIPEXOLE DIHYDROCHLORIDE 1.5 MG TABLET 1 TABLET ORALLY TAKE AT 7 PM AND 11 PM MDD=2 TAKING TYLENOL WITH CODEINE #3 300-30 MG TABLET 1 TABLET ORALLY EVERY 6 HRS PRN PAIN MDD=4 UNKNOWN VENTOLIN HFA 108 (90 BASE) MCG/ACT AEROSOL SOLUTION 2 PUFFS NEEDED INHALATION EVERY 4 HRS, NOTES: NOT LATELY UNKNOWN AMBIEN 10 MG TABLET 1 TABLET AT BEDTIME NEEDED ORALLY QHS UNKNOWN BUPROPION HCL ER (XL) 300 MG TABLET EXTENDED RELEASE 24 HOUR 1 TABLET IN THE MORNING ORALLY ONCE A DAY MEDICATION LIST REVIEWED AND RECONCILED WITH THE PATIENT PAST MEDICAL HISTORY DIABETES CHRONIC BACK PAIN HYPERTENSION RYLAN ASTHMA ALLERGIES N.K.D.A. SURGICAL HISTORY NONE FAMILY HISTORY FATHER: , DIAGNOSED WITH HYPERTENSION, OTHER MALIGNANT NEOPLASM OF UNSPECIFIED SITE, DIABETES MOTHER: ALIVE, DIABETES, HYPERTENSION SIBLINGS: ALIVE 2 BROTHER(S) - HEALTHY. 2 SON(S) - HEALTHY. MOTHER - PARKINSON\\\'S. SOCIAL HISTORY GENERAL: TOBACCO USE ARE YOU A:NONSMOKER PAIN CLINIC PFS, CLERGY, PUBLIC HEALTH REFERRALS PFS REFERRAL NEEDED?NO CLERGY REFERRAL NEEDED?NO PUBLIC HEALTH REFERRAL NEEDED?NO WAS THE PROVIDER NOTIFIED OF ANY PERTINENT INFO?YES HAS THE PATIENT BEEN EDUCATED REGARDING HIS/HER PLAN OF CARE?YES HAS THE PATIENT BEEN EDUCATED REGARDING PAIN, THE RISK FOR PAIN, THE IMPORTANCE OF EFFECTIVE PAIN MANAGEMENT, AND THE PAIN ASSESSMENT PROCESS?YES CAFFEINE: YES CAFFEINE USE? CUP SODA DAILY ADVANCE DIRECTIVE ADVANCE DIRECTIVE DISCUSSED WITH PATIENT:YES PT HAS NO ADVANCED DIRECTIVES, DECLINED INFORMATIN OR ASSISTANCE AT THIS TIME [employer] [id number] [employer] L[employer] LANGUAGES SPOKEN:CROATIAN ALCOHOL SCREENING DID YOU HAVE A DRINK CONTAINING ALCOHOL IN THE PAST YEAR?NO POINTS0 INTERPRETATIONNEGATIVE RECREATIONAL DRUG USE: NEVER PAST USE OF: CURRENTLY USING:. LEARNING BARRIERS / SPECIAL NEEDS CHANGE FROM LAST VISIT?NO BARRIERS TO LEARNING?NO HEARING IMPAIRED?NO VISION IMPAIRED?NO COGNITIVELY IMPAIRED?NO READINESS TO LEARN?YES LEARNING PREFERENCES?NO LEARNING CAPABILITIES PRESENT?NO EMOTIONAL BARRIERS?NO SPECIAL DEVICES?NO CONCRETE BUCKET HOOKER NEEDED?NO REVIEWED TH PATIENT 09/07/18 0918 JSREVIEWED WITH PT 10/13/18 1054 LAS. HOSPITALIZATION/MAJOR DIAGNOSTIC PROCEDURE NO HOSPITALIZATION HISTORY. REVIEW OF SYSTEMS REVIEWED BY: PROVIDER: CHARLY TSAI . CONSTITUTIONAL: ANY CHANGE IN YOUR MEDICAL CONDITION? NO . CHILLS NO . FEVER NO . INFECTION: DO YOU HAVE NEW INFECTIONS? NO . DO YOU HAVE HISTORY OF MRSA? NO . MUSCULOSKELETAL: ANY NEW PATTERNS OF PAIN OR NUMBNESS? NO . GASTROENTEROLOGY: ANY NEW CHANGE IN BOWEL CONTROL? NO . GENITOURINARY: ANY NEW CHANGE IN BLADDER CONTROL? NO . IS THERE A CHANCE YOU COULD BE ? NO . HEMATOLOGY/LYMPH: DO YOU TAKE ANY BLOOD THINNERS? (FOR EXAMPLE- COUMADIN, PLAVIX, AGGRENOX, PLATEL, PRADAXA, OR XARELTO) NO . WHEN WAS YOUR LAST DOSE? DATE: TIME: . NEUROLOGY: HAVE YOU FALLEN IN THE PAST 12 MONTHS? NO . ANY NEW EXTREMITY NUMBNESS OR WEAKNESS? NO . CARDIOLOGY: DO YOU HAVE A PACEMAKER OR DEFIBRILLATOR? NO . RESPIRATORY: HAVE YOU BEEN SICK IN THE PAST WEEK? NO . FEVER NO . FLU LIKE SYMPTOMS? NO . COUGH NO . INTEGUMENTARY: DO YOU HAVE ANY RASHES OR OPEN SORES? NO . ALLERGIC/IMMUNO: ARE YOU ALLERGIC TO IV DYE? NO . ANY NEW ALLERGIES? NO . PSYCHIATRIC: DO YOU HAVE THOUGHTS OF HURTING YOURSELF OR SOMEONE ELSE? NO . ARE YOU ABUSED, NEGLECTED, OR IN AN UNSAFE ENVIRONMENT? NO . ENDOCRINOLOGY: ARE YOU DIABETIC? NO . OTHER: DO YOU NEED ANY PRESCRIPTIONS? NO . IF YES, PLEASE LIST: ____ . ANY NEW PROBLEMS WITH YOUR MEDICATIONS? NO . WHEN DID YOU LAST EAT? ____ . WHEN DID YOU LAST DRINK? ____ . WHAT DID YOU LAST DRINK? ____ . NAME OF PERSON DRIVING YOU HOME? ____ . DO YOU HAVE ANY OTHER QUESTIONS OR CONCERNS NO . VITAL SIGNS WT 412 LBS, HT 76.5 IN, BMI 49.49 INDEX, BP 168/80 MM HG, HR 94 /MIN, RR 18 /MIN, TEMP 98.1 F, OXYGEN SAT % 98%, NA INITIALS SC 11:39. EXAMINATION GENERAL EXAMINATION: GENERALAWAKE,ALERT ,PLEAASANT . PSYCHAFFECT NORMAL . LUNGS:LUNG CERDA ARE CLEAR TO AUSCULTATION BILATERALLY. GOOD MOVEMENT OF AIR . HEART:S1, S2 IN A REGULAR RATE AND RHYTHM. NO SIGNIFICANT MURMURS, RUBS OR GALLOPS NOTED . LUMBAR SACRAL SPINEPALPATION:TENDER OVER LEFT L4/5-L5/S1 LUMBAR FACETS WITH FACET LOADING.. ASSESSMENTS LUMBAR SPONDYLOSIS - M47.816 (PRIMARY) TREATMENT LUMBAR SPONDYLOSIS CONTINUE TYLENOL WITH CODEINE #3 TABLET, 300-30 MG, 1 TABLET, ORALLY, EVERY 6 HRS PRN PAIN MDD=4 CONTINUE PRAMIPEXOLE DIHYDROCHLORIDE TABLET, 1.5 MG, 1 TABLET, ORALLY, TAKE AT 7 PM AND 11 PM MDD=2 CONTINUE TIZANIDINE HCL TABLET, 4 MG, 1 TABLET NEEDED, ORALLY, THREE TIMES A DAY START KETOROLAC TROMETHAMINE TABLET, 10 MG, 1 TABLET WITH FOOD OR MILK NEEDED, ORALLY, EVERY 6 HRS, 5 DAY(S), 20, REFILLS 0 [facility] MRI LUMBAR W/O CONTRAST (CPT 40584)[id number],ASHLEY 07/03/2019 11:30:22 AM > MELODY MARTINEZ Nathalie 07/03/2019 11:25:31 AM > NO PRIOR AUTH NEEDED FOR MRI LUMBAR SPINE W/O CONTRAST. CASE #: [id number] NOTES: DUE TO INCREASE IN LOW BACK PAIN WITH INCREASE IN LEFT LEG RADICULAR SYMPTOMS POST PROCEDURE A MRI OF L/S SPINE IS MEDICALLY NECESSARY.WE WILL REVIEW MRI AT F/U APT IN 1 MONTH AND DEVELOP A TREATMENT PLAN ACCORDING TO MRI FINDINGS. PROCEDURE CODES FA211 ESTABILISHED PATIENT [facility] CHARGE DISPOSITION & COMMUNICATION FOLLOW UP 4-6WKS (REASON: MRI L/S SPINE) ELECTRONICALLY SIGNED BY EULALIO LIRA ON 07/10/2019 AT 03:43 PM EDT DISCLAIMER : THIS IS A VISIT SUMMARY EXTRACTED FROM THE [employer] CHART. IT IS NOT A COPY OF THE [employer] PROGRESS NOTE. MASOOD
== END ==
LOC: M PAIN 11:00
PROVIDERS: ATTEND Nurse Practitioner Family
DX: M47.816 Spondylosis without myelopathy or radiculopathy, lumbar region (principal); E11.9 Type 2 diabetes mellitus without complications; I10 Essential (primary) hypertension; G47.33 Obstructive sleep apnea (adult) (pediatric); J45.909 Unspecified asthma, uncomplicated; E66.01 Morbid (severe) obesity due to excess calories; Z68.42 Body mass index [BMI] 45.0-49.9, adult; Z79.82 Long term (current) use of aspirin; Z79.4 Long term (current) use of insulin; Z79.891 Long term (current) use of opiate analgesic; Z79.899 Other long term (current) drug therapy

== ENCOUNTER → 2019-07-31 | Outpatient (CLI) | payer MEDICARE, MEDICAID ==
--- NOTE | 2019-08-14 01:28 | ECWPNPC ---
PATIENT NAME: SERGIO WHITE : 1975 GENDER: MALE VISIT DATE: 07/31/2019 DISCHARGE DATE: 07/31/19 1146 VISIT LOCKED DATE TIME: PHYSICIAN: CHARLY HIGGINBOTHAM RESOURCE: CHARLY HIGGINBOTHAM REASON FOR APPOINTMENT 1. REVIEW MRI HISTORY OF PRESENT ILLNESS HISTORY OF PRESENT ILLNESS: HERE AN URGENT F/U.HAS BEEN EXPERIENCING A SEVERE INCREASE IN LBP WITH LEFT LEG PAIN AND PARATHESIA.MRI L/S SPINE IS REVIEWED AND IS SHOWING MULTI LEVEL MULTI LEVEL DISC PROTRUSION AND MODERATE CENTRAL CANAL STENOSIS.CURRENTLY USING OXYCODONE 10/325 APPROXIMATLEY 3 TAB PER DAY AND TIZANIDINE 4MG UP TO 2X PER DAY. PAIN THE PATIENT DESCRIBES THE PAIN... FALL RISK SCREENING: SCREENING :NO FALLS REPORTED IN THE LAST YEAR CURRENT MEDICATIONS TAKING ADVAIR DISKUS 100-50 MCG/DOSE MISCELLANEOUS DIRECTED INHALATION TAKING ASPIR-81 81 MG TABLET DELAYED RELEASE 1 TABLET ORALLY ONCE A DAY TAKING MAGNESIUM 65 MG TABLET 2 ORALLY TWICE DAILY TAKING LISINOPRIL 40 MG TABLET 1 TABLET ORALLY ONCE A DAY TAKING METFORMIN HCL 750 MG TABLET 1 TABLET WITH MEALS ORALLY BID TAKING TOUJEO SOLOSTAR 300 UNIT/ML SOLUTION PEN-INJECTOR 110 UNITS SUBCUTANEOUS ONCE DAILY TAKING LANTUS SOLOSTAR 100 UNIT/ML SOLUTION PEN-INJECTOR 120 UNITS SUBCUTANEOUS DAILY TAKING POTASSIUM 99 MG TABLET 1 TABLET ORALLY ONCE A DAY TAKING DILTIAZEM HCL ER 240 MG CAPSULE EXTENDED RELEASE 24 HOUR 1 CAPSULE ON AN EMPTY STOMACH IN THE MORNING ORALLY ONCE A DAY TAKING PRAMIPEXOLE DIHYDROCHLORIDE 1.5 MG TABLET 1 TABLET ORALLY TAKE AT 7 PM AND 11 PM MDD=2 TAKING TIZANIDINE HCL 4 MG TABLET 1 TABLET NEEDED ORALLY THREE TIMES A DAY TAKING KETOROLAC TROMETHAMINE 10 MG TABLET 1 TABLET WITH FOOD OR MILK NEEDED ORALLY EVERY 6 HRS TAKING PERCOCET 10-325 MG TABLET 1 TABLET NEEDED ORALLY EVERY 6 HRS MDD4 NOT-TAKING TYLENOL WITH CODEINE #3 300-30 MG TABLET 1 TABLET ORALLY EVERY 6 HRS PRN PAIN MDD=4 NOT-TAKING VENTOLIN HFA 108 (90 BASE) MCG/ACT AEROSOL SOLUTION 2 PUFFS NEEDED INHALATION EVERY 4 HRS, NOTES: NOT LATELY NOT-TAKING AMBIEN 10 MG TABLET 1 TABLET AT BEDTIME NEEDED ORALLY QHS NOT-TAKING BUPROPION HCL ER (XL) 300 MG TABLET EXTENDED RELEASE 24 HOUR 1 TABLET IN THE MORNING ORALLY ONCE A DAY MEDICATION LIST REVIEWED AND RECONCILED WITH THE PATIENT PAST MEDICAL HISTORY DIABETES CHRONIC BACK PAIN HYPERTENSION RYLAN ASTHMA ALLERGIES N.K.D.A. SURGICAL HISTORY NONE FAMILY HISTORY FATHER: , DIAGNOSED WITH DIABETES, HYPERTENSION, OTHER MALIGNANT NEOPLASM OF UNSPECIFIED SITE MOTHER: ALIVE, DIABETES, HYPERTENSION SIBLINGS: ALIVE 2 BROTHER(S) - HEALTHY. 2 SON(S) - HEALTHY. MOTHER - PARKINSON\\\'S. SOCIAL HISTORY GENERAL: TOBACCO USE ARE YOU A:NONSMOKER PAIN CLINIC PFS, CLERGY, PUBLIC HEALTH REFERRALS PFS REFERRAL NEEDED?NO CLERGY REFERRAL NEEDED?NO PUBLIC HEALTH REFERRAL NEEDED?NO WAS THE PROVIDER NOTIFIED OF ANY PERTINENT INFO?YES HAS THE PATIENT BEEN EDUCATED REGARDING HIS/HER PLAN OF CARE?YES HAS THE PATIENT BEEN EDUCATED REGARDING PAIN, THE RISK FOR PAIN, THE IMPORTANCE OF EFFECTIVE PAIN MANAGEMENT, AND THE PAIN ASSESSMENT PROCESS?YES CAFFEINE: YES CAFFEINE USE? CUP SODA DAILY ADVANCE DIRECTIVE ADVANCE DIRECTIVE DISCUSSED WITH PATIENT:YES PT HAS NO ADVANCED DIRECTIVES, DECLINED INFORMATIN OR ASSISTANCE AT THIS TIME [employer] [id number] LANGU[employer] SPOKEN:UZBEK ALCOHOL SCREENING DID YOU HAVE A DRINK CONTAINING ALCOHOL IN THE PAST YEAR?NO POINTS0 INTERPRETATIONNEGATIVE RECREATIONAL DRUG USE: NEVER PAST USE OF: CURRENTLY USING:. LEARNING BARRIERS / SPECIAL NEEDS CHANGE FROM LAST VISIT?NO BARRIERS TO LEARNING?NO HEARING IMPAIRED?NO VISION IMPAIRED?NO COGNITIVELY IMPAIRED?NO READINESS TO LEARN?YES LEARNING PREFERENCES?NO LEARNING CAPABILITIES PRESENT?NO EMOTIONAL BARRIERS?NO SPECIAL DEVICES?NO CAMPER ASSEMBLER NEEDED?NO REVIEWED TH PATIENT 09/07/18 0918 JSREVIEWED WITH PT 10/13/18 1054 LASREVIEWED WITH PATIENT 07/31/2019 LAS. HOSPITALIZATION/MAJOR DIAGNOSTIC PROCEDURE NO HOSPITALIZATION HISTORY. REVIEW OF SYSTEMS REVIEWED BY: PROVIDER: CHARLY TSAI . CONSTITUTIONAL: ANY CHANGE IN YOUR MEDICAL CONDITION? NO . CHILLS NO . FEVER NO . INFECTION: DO YOU HAVE NEW INFECTIONS? NO . DO YOU HAVE HISTORY OF MRSA? NO . MUSCULOSKELETAL: ANY NEW PATTERNS OF PAIN OR NUMBNESS? PATIENT HAD A RADIO FREQUENCY DONE 05/29/2019, REPORTS IT WAS NOT EFFECTIVE, AND IS NOW REPORTING INCREASED PAIN AND NUMBNESS IN LOW BACK-HIP, RADIATING DOWN LEFT LEG . GASTROENTEROLOGY: ANY NEW CHANGE IN BOWEL CONTROL? NO . GENITOURINARY: ANY NEW CHANGE IN BLADDER CONTROL? NO . IS THERE A CHANCE YOU COULD BE ? NO . HEMATOLOGY/LYMPH: DO YOU TAKE ANY BLOOD THINNERS? (FOR EXAMPLE- COUMADIN, PLAVIX, AGGRENOX, PLATEL, PRADAXA, OR XARELTO) NO . WHEN WAS YOUR LAST DOSE? DATE: TIME: . NEUROLOGY: HAVE YOU FALLEN IN THE PAST 12 MONTHS? NO . ANY NEW EXTREMITY NUMBNESS OR WEAKNESS? NO . CARDIOLOGY: DO YOU HAVE A PACEMAKER OR DEFIBRILLATOR? NO . RESPIRATORY: HAVE YOU BEEN SICK IN THE PAST WEEK? NO . FEVER NO . FLU LIKE SYMPTOMS? NO . COUGH NO . INTEGUMENTARY: DO YOU HAVE ANY RASHES OR OPEN SORES? NO . ALLERGIC/IMMUNO: ARE YOU ALLERGIC TO IV DYE? NO . ANY NEW ALLERGIES? NO . PSYCHIATRIC: DO YOU HAVE THOUGHTS OF HURTING YOURSELF OR SOMEONE ELSE? NO . ARE YOU ABUSED, NEGLECTED, OR IN AN UNSAFE ENVIRONMENT? NO . ENDOCRINOLOGY: ARE YOU DIABETIC? NO . OTHER: DO YOU NEED ANY PRESCRIPTIONS? NO . IF YES, PLEASE LIST: ____ . ANY NEW PROBLEMS WITH YOUR MEDICATIONS? NO . WHEN DID YOU LAST EAT? ____ . WHEN DID YOU LAST DRINK? ____ . WHAT DID YOU LAST DRINK? ____ . NAME OF PERSON DRIVING YOU HOME? ____ . DO YOU HAVE ANY OTHER QUESTIONS OR CONCERNS NO . VITAL SIGNS WT 417 LBS, HT 76.5 IN, BMI 50.09 INDEX, BP 146/74 MM HG, HR 94 /MIN, RR 18 /MIN, TEMP 97.6 F, OXYGEN SAT % 96%, SAFE IN ENV? (Y/N) YES, NA INITIALS AW 1047, REVIEWED BY: RADHA. EXAMINATION GENERAL EXAMINATION: GENERAL AWAKE,ALERT ,PLEAASANT . PSYCH AFFECT NORMAL . LUNGS: LUNG CERDA ARE CLEAR TO AUSCULTATION BILATERALLY. GOOD MOVEMENT OF AIR . HEART: S1, S2 IN A REGULAR RATE AND RHYTHM. NO SIGNIFICANT MURMURS, RUBS OR GALLOPS NOTED . MUSCULOSKELETAL: WEAK OVER LEFT LEG. LUMBAR SACRAL SPINE PALPATION: + FOR PAIN OVER L/S SPINE. + FOR PAIN OVER L/S PARASPINALS. NEUROLOGIC EXAM: NORMAL SENSATION LIGHT TOUCH BILAT. LOWER EXTREMITIES. DIAGNOSTIC TESTS REVIEWED MRI L/S SPINE-07/25/19. ASSESSMENTS PROTRUSION OF INTERVERTEBRAL DISC OF LUMBOSACRAL REGION - M51.27 (PRIMARY) LUMBOSACRAL RADICULOPATHY - M54.17 TREATMENT PROTRUSION OF INTERVERTEBRAL DISC OF LUMBOSACRAL REGION REFILL PERCOCET TABLET, 10-325 MG, 1 TABLET NEEDED, ORALLY, EVERY 6 HRS MDD4, 30 DAYS, 60, REFILLS 0 CONTINUE TIZANIDINE HCL TABLET, 4 MG, 1 TABLET NEEDED, ORALLY, THREE TIMES A DAY START GABAPENTIN CAPSULE, 300 MG, 1 CAPSULE, ORALLY, BID, 30 DAY(S), 60 CAPSULE, REFILLS 2 NOTES: L4/5 LESI, ISTOP REGISTRY REVIEWED AND DEMONSTRATES COMPLLIANCE. BRINGS IN MEDICATIONS WHICH IS APPROPRIATE FOR WHAT WAS DISPENSED. RECENT URINE TOXICOLOGY REVIEWED. NO UNAUTHORIZED MEDICATIONS. NO ILLICIT SUBSTANCES AND PRESCRIBED MEDICATIONS WERE PRESENT. , RISKS OF NARCOTIC INCLUDES BUT IS NOT LIMITED TO RISK OF DEPENDANCE/DEVELOPMENT OF ADDICTION, MOOD DISTURBANCE AND DEPRESSION, OSTEOPOROSIS, HORMONAL AND LABIDAL CHANGES, RESPIRATORY DEPRESSION AND . PATIENT IS ADVISED NOT TO DRIVE OR DRINK ALCOHOL WHILE ON THESE MEDICATIONS. [facility] REASON:MULTI LEVEL LUMBAR DISC PROTRUSION W LEFT LEG RADICULOPATHY PREVENTIVE MEDICINE PAIN CLINIC TEACHING: MEDICATIONS INFORMATION HANDOUT FOR GABAPENTIN PRINTED AND REVIEWED WITH PATIENT, PATIENT VERBALIZES UNDERSTANDING. 07/31/2019 LAS. PROCEDURE TEACHING PROCEDURE REVIEWED, PRE PROCEDURE INSTRUCTIONS REVIEWED WITH PATIENT, PATIENT VERBALIZES UNDERSTANDING. 07/31/2019 LAS. PROCEDURE CODES FA211 ESTABILISHED PATIENT [facility] FAC[facility] CHARGE DISPOSITION & COMMUNICATION FOLLOW UP POST (REASON: L4/5 LESI) ELECTRONICALLY SIGNED BY EULALIO LIRA ON 08/13/2019 AT 10:45 AM EDT DISCLAIMER : THIS IS A VISIT SUMMARY EXTRACTED FROM THE [employer] CHART. IT IS NOT A COPY OF THE [employer] PROGRESS NOTE. MASOOD
== END ==
LOC: M PAIN 10:30
PROVIDERS: ATTEND Nurse Practitioner Family
DX: M51.27 Other intervertebral disc displacement, lumbosacral region (principal); M54.17 Radiculopathy, lumbosacral region; E11.9 Type 2 diabetes mellitus without complications; I10 Essential (primary) hypertension; G47.30 Sleep apnea, unspecified; J45.909 Unspecified asthma, uncomplicated; E66.01 Morbid (severe) obesity due to excess calories; Z68.43 Body mass index [BMI] 50.0-59.9, adult; Z79.82 Long term (current) use of aspirin; Z79.4 Long term (current) use of insulin; Z79.899 Other long term (current) drug therapy

== ENCOUNTER → 2020-07-30 | Outpatient (REF) | payer MEDICARE, MEDICAID ==
[~2020-07-30] MED LIST changes: +CYCL-707 PO; -CYCL10TA PO
== END ==
LOC: M LAB REF 17:01
PROVIDERS: ATTEND Internal Medicine
DX: L03.115 Cellulitis of right lower limb (principal)

== ENCOUNTER → 2021-01-28 | Outpatient (CLI) | payer MEDICARE, MEDICAID | LOC: M RAD 17:47 | PROVIDERS: ATTEND Internal Medicine | DX: M25.511 Pain in right shoulder (principal); Z53.9 Procedure and treatment not carried out, unspecified reason ==

== ENCOUNTER → 2021-05-11 | Outpatient (REF) | payer MEDICARE, MEDICAID ==
[~2021-05-11] MED LIST changes: +ADV100INH; +AMIT10TA7; +ATOR40TA75; +CHLO125TA; +DILT240C28; +HUMA50IN4; +LISI40TA4; +METF750T36; +OZEM2INJ; +PRAM1.5T2; +PROAAER10; +TRES1INJ; +TRUL10IN
[2021-05-11 13:13] LABS: HEMOGLOBIN A1c 8.8 %
== END ==
LOC: M LAB REF 12:12
PROVIDERS: ATTEND Surgery
DX: I87.311 Chronic venous hypertension (idiopathic) with ulcer of right lower extremity (principal); Z79.899 Other long term (current) drug therapy
CPT/HCPCS: 11042; 83036; G0463

== ENCOUNTER → 2021-06-17 | Outpatient (CLI) | payer MEDICARE, MEDICAID ==
[~2021-06-17] MED LIST changes: -AMIT10TA7; +AMIT10TA7 PO; -ATOR40TA75; +ATOR40TA75 PO; -CHLO125TA; +CHLO125TA PO; -DILT240C28; +DILT240C28 PO; -HUMA50IN4; +HUMA50IN4 SQ; -LISI40TA4; +LISI40TA4 PO; -METF750T36; +METF750T36 PO; -OZEM2INJ; +OZEM2INJ SQ; -PRAM1.5T2; +PRAM1.5T2 PO; -TRES1INJ; +TRES1INJ SQ
== END ==
LOC: M LABSMTC 10:48
PROVIDERS: ATTEND Anesthesiology
DX: Z01.818 Encounter for other preprocedural examination (principal); Z11.52 Encounter for screening for COVID-19

== ENCOUNTER 2021-06-22 11:33 | Day surgery (SDC) | payer MEDICARE, MEDICAID ==
[~2021-06-22] VITALS: Ht 200.7 cm; Wt 201.4 kg
[~2021-06-22 11:33] MED LIST changes: +NS 1,000 ML IV ONE
[2021-06-22] MEDS ORDERED: fentaNYL 100 MCG/2 ML INJECTION (J3010) As Ordered ONE (13:29)
[2021-06-22] MEDS ORDERED: propofoL 200 MG/20 ML VIAL As Ordered ONE (13:30)
[2021-06-22 13:54] VITALS: BP 141/73
== END 2021-06-22 13:58 | disposition home or self-care (01) ==
LOC: M OPP 11:33
PROVIDERS: ATTEND Internal Medicine Gastroenterology
DX: Z12.11 Encounter for screening for malignant neoplasm of colon (principal); Z80.0 Family history of malignant neoplasm of digestive organs; D12.6 Benign neoplasm of colon, unspecified; K64.0 First degree hemorrhoids; E11.9 Type 2 diabetes mellitus without complications; Z79.4 Long term (current) use of insulin; Z79.899 Other long term (current) drug therapy
CPT/HCPCS: 45385; 88305; J3010

== ENCOUNTER → 2021-09-09 | Outpatient (REF) | payer MEDICARE, MEDICAID ==
[~2021-09-09] MED LIST changes: -NS 1,000 ML IV ONE
[2021-09-10 14:07] LABS: HEPATITIS B CORE ANTIBODY IGM NEGATIVE (NEGATIVE); HEPATITIS B SURFACE ANTIGEN NEGATIVE (NEGATIVE); HEPATITIS C VIRUS ABY INDEX 0.1 INDEX (<0.8)
== END ==
LOC: M LAB REF 12:07
PROVIDERS: ATTEND Internal Medicine
DX: R74.8 Abnormal levels of other serum enzymes (principal)

== ENCOUNTER → 2021-10-27 | Outpatient (CLI) | payer MEDICARE, MEDICAID ==
--- NOTE | 2021-10-27 12:34 | REP ---
INDICATION: CHRONIC VENOUS HTN (IDIOPATHIC) W/ ULCER OF RT LEG. COMPARISON: None. TECHNIQUE: Multiple ultrasonographic images of the deep venous structures of the right lower extremity were obtained from the inguinal ligament to the ankle. Venous compression techniques, color doppler imaging, and augmentation techniques were also obtained where appropriate. As per the ACR guidelines the anterior tibial vein can not be effectively evaluated. Only compression techniques in the calf on the peroneal and posterior tibial veins was attempted/performed. Deep vein reflux study was also performed. FINDINGS: There is no abnormal echogenic material seen within any of the visualized deep venous structures that would suggest acute thrombosis. Coaptation is unremarkable throughout. Doppler interrogation shows an expected response to respiratory variability and augmentation in the thigh. Compression techniques in the calf were unobtainable. The color flow images show what appears to be a normal vascular pattern throughout the thigh. Deep vein reflux study shows no reflux in the common femoral vein, anterior accessory greater saphenous vein, any portion of the greater saphenous vein, any portion of the superficial femoral vein, popliteal vein, or lesser saphenous vein. The AP dimension of the greater saphenous vein at the saphenofemoral junction is 8 mm, at the mid thigh 6 mm, and at the knee 5 mm. The AP dimension of the lesser saphenous vein is 4 mm. Multiple collateral vessels were, however, identified. IMPRESSION: There is no ultrasonographic evidence of deep venous thrombosis involving any of the visualized deep venous structures of the lower extremity as described above. Due to technical parameters calf vein DVT can not be ruled out. Negative reflux study <Electronically signed by Rell Dwyer > 10/27/21 [id number]
== END ==
LOC: M RAD 10:22
PROVIDERS: ATTEND Surgery
DX: I87.311 Chronic venous hypertension (idiopathic) with ulcer of right lower extremity (principal)

== ENCOUNTER → 2021-12-16 | Outpatient (REF) | payer MEDICARE, MEDICAID | LOC: M LAB REF 12:00 | PROVIDERS: ATTEND Internal Medicine | DX: M25.50 Pain in unspecified joint (principal) ==

== ENCOUNTER → 2021-12-29 | Outpatient (CLI) | payer MEDICARE, MEDICAID | LOC: M PLAIMG 14:26 | PROVIDERS: ATTEND Orthopaedic Surgery | DX: M25.532 Pain in left wrist (principal) ==

== ENCOUNTER → 2022-03-23 | Outpatient (CLI) | payer MEDICARE, MEDICAID | LOC: M RADPRO 06:41 | PROVIDERS: ATTEND Orthopaedic Surgery Hand Surgery | DX: M25.532 Pain in left wrist (principal); Z53.9 Procedure and treatment not carried out, unspecified reason ==

== ENCOUNTER → 2022-04-06 | Outpatient (CLI) | payer MEDICARE, MEDICAID ==
[~2022-04-06] MED LIST changes: +ISOVUE-300 61% 50ML VIAL As Ordered ONE; +LIDOCAINE 1% MDV 20ML VIAL As Ordered ONE; +PROHANCE 279.3MG/ML 5ML VIAL As Ordered ONE
== END ==
LOC: M RADPRO 06:36
PROVIDERS: ATTEND Orthopaedic Surgery Hand Surgery
DX: R93.7 Abnormal findings on diagnostic imaging of other parts of musculoskeletal system (principal)
CPT/HCPCS: 25246; 73223; 77002; A9576; Q9967

== ENCOUNTER → 2022-09-27 | Outpatient (REF) | payer MEDICARE, MEDICAID ==
[~2022-09-27] MED LIST changes: -ISOVUE-300 61% 50ML VIAL As Ordered ONE; -LIDOCAINE 1% MDV 20ML VIAL As Ordered ONE; -PROHANCE 279.3MG/ML 5ML VIAL As Ordered ONE
[2022-09-27 15:11] LABS: C REACTIVE PROTEIN QUANTITATIV 1.5 MG/DL (<1.0); URIC ACID 4.5 MG/DL (3.7-9.2)
== END ==
LOC: M LAB REF 12:25
PROVIDERS: ATTEND Internal Medicine
DX: M79.675 Pain in left toe(s) (principal)

== ENCOUNTER → 2023-03-16 | Outpatient (REF) | payer MEDICARE, OTHER ==
[2023-03-18 08:11] LABS: LDL DIRECT 46 mg/dL (0-99)
== END ==
LOC: M LAB REF 09:40
PROVIDERS: ATTEND Internal Medicine
DX: E78.00 Pure hypercholesterolemia, unspecified (principal)

== ENCOUNTER 2023-05-16 09:01 | Outpatient (RCR) | payer MEDICARE | END 2023-05-23 | LOC: M PT 09:01 | PROVIDERS: ATTEND Physician Assistant | DX: I89.0 Lymphedema, not elsewhere classified (principal) ==

== ENCOUNTER → 2024-03-15 | Outpatient (REF) | payer MEDICARE, MEDICAID, OTHER ==
[2024-03-16 08:39] LABS: LDL DIRECT 57 mg/dL (0-99)
== END ==
LOC: M LAB REF 12:21
PROVIDERS: ATTEND Internal Medicine
DX: Z79.84 Long term (current) use of oral hypoglycemic drugs (principal); G47.33 Obstructive sleep apnea (adult) (pediatric); I10 Essential (primary) hypertension

== ENCOUNTER → 2024-07-11 | Outpatient (REF) | payer MEDICARE, MEDICAID, OTHER | LOC: M LAB REF 10:35 | PROVIDERS: ATTEND Student in an Organized Health Care Education/Training Program | DX: R19.7 Diarrhea, unspecified (principal); R10.812 Left upper quadrant abdominal tenderness ==

== ENCOUNTER → 2024-07-16 | Outpatient (REF) | payer MEDICARE, MEDICAID, OTHER | LOC: M LAB REF 16:34 | PROVIDERS: ATTEND Internal Medicine | DX: E78.00 Pure hypercholesterolemia, unspecified (principal) ==

== ENCOUNTER → 2024-10-12 | Outpatient (REF) | payer MEDICARE, MEDICAID, OTHER ==
[~2024-10-12] MED LIST changes: -ADV100INH; +ADVA1AER8
[2024-10-15 13:17] LABS: HEPATITIS B SURFACE ANTIGEN NEGATIVE (NEGATIVE)
[2024-10-15 13:38] LABS: HEPATITIS B CORE ANTIBODY IGM NEGATIVE (NEGATIVE); HEPATITIS C VIRUS ABY INDEX 0.15 INDEX (<0.8)
== END ==
LOC: M LAB REF 12:20
PROVIDERS: ATTEND Internal Medicine
DX: K76.0 Fatty (change of) liver, not elsewhere classified (principal); R74.01 Elevation of levels of liver transaminase levels

== ENCOUNTER 2025-06-11 09:41 | Inpatient (IN) | payer MEDICARE, OTHER ==
[~2025-06-11] VITALS: Ht 195.6 cm; Wt 188.2 kg
[~2025-06-11 09:41] MED LIST changes: -ADVA1AER8; +ADVA1AER8 INH; +AMIT10TA11 PO; -AMIT10TA7 PO; +LISI40TA10 PO; -LISI40TA4 PO
[2025-06-11 10:56] LABS: BASO # 0.0 10^3/uL (0.0-0.2); BASO % 0.2 % (0.0-1.0); EOS # 0.0 10^3/uL (0.0-0.5); EOS % 0.2 % (0.0-3.0); LYMPH # 1.0 10^3/uL (1.5-5.0); LYMPH % 5.8 % (24.0-44.0); MONO # 0.9 10^3/uL (0.0-0.8); MONO % 5.2 % (2.0-8.0); NEUTROPHILS # 15.0 10^3/uL (1.5-8.5); NEUTROPHILS % 88.0 % (36.0-66.0); PLATELET COUNT, AUTOMATED 209 10^3/uL (150-450)
[2025-06-11 11:05] LABS: INR 1.11
[2025-06-11 11:07] LABS: C REACTIVE PROTEIN QUANTITATIV 9.33 MG/DL (<1.0); CALCIUM LEVEL 8.3 MG/DL (8.5-10.1); CARBON DIOXIDE LEVEL 23 MMOL/L (20-31); CHLORIDE LEVEL 96 MMOL/L (98-107); CREATININE FOR GFR 0.91 MG/DL (0.70-1.30); GLOMERULAR FILTRATION RATE > 90.0 (>56); POTASSIUM SERUM 4.3 MMOL/L (3.5-5.1); SODIUM LEVEL 131 MMOL/L (136-145)
[2025-06-11] MEDS: ACETAMINOPHEN 325 MG TAB PO ONE (12:00)
[2025-06-11] MEDS: cefTRIAXone SOD 1 GM in DEXTROSE 5% (D5W) ADV/MINI-BAG 50 ML IV ONE (12:17)
[2025-06-11] MEDS: NS (Normal Saline) 0.9% 1,000 ML IV ONE (13:44)
[2025-06-11] MEDS ORDERED: ALBU8.5H INH (14:17)
[2025-06-11] MEDS ORDERED: DEXTROSE 50% 50 ML SYRINGE IV PRN (14:35)
[2025-06-11] MEDS ORDERED: GLUCAGON INJ 1 MG VIAL SC PRN (14:35)
[2025-06-11] MEDS ORDERED: **NOTE PATIENT COMMENT** MISC XX SCH (14:35)
[2025-06-11] MEDS ORDERED: GLUCOSE 4 GM CHEW PO PRN (14:35)
[2025-06-11] MEDS ORDERED: ESZO1TAB6 PO (14:38)
[2025-06-11] MEDS ORDERED: REXU1TAB2 PO (14:38)
[2025-06-11] MEDS ORDERED: AMIT100TA PO (14:38)
[2025-06-11] MEDS ORDERED: DILT1TAB7 PO (14:38)
[2025-06-11] MEDS ORDERED: OLME40TA PO (14:38)
[2025-06-11] MEDS ORDERED: PIOG1TAB36 PO (14:38)
[2025-06-11] MEDS ORDERED: CLON-412 PO (14:38)
[2025-06-11] MEDS ORDERED: DULO1CAP6 PO (14:38)
[2025-06-11] MEDS ORDERED: ERGO500029 PO (14:39)
[2025-06-11] MEDS ORDERED: SPIR-10 PO (14:40)
[2025-06-11] MEDS ORDERED: BACL10TA2 PO (14:40)
[2025-06-11] MEDS ORDERED: HOME MED LIST COMPLETE! XX SCH (14:45)
[2025-06-11] MEDS ORDERED: CYCLOBENZAPRINE 10 MG TABLET PO PRN (14:55)
[2025-06-11] MEDS ORDERED: ALBUTEROL 90 MCG/ACT 8 GM HFA INHALER INH PRN (14:55)
[2025-06-11 15:35] LABS: ESTIMATED AVERAGE GLUCOSE 344.0 MG/DL (60-110)
[2025-06-11 16:09] VITALS: BP 153/89; TEMP 97.7; O2SAT 97
[2025-06-11] MEDS: INSULIN LISPRO (NovoLOG) PER UNIT SC SCH ×2 (18:07→20:24)
[2025-06-11] MEDS: SPIRONOLACTONE 25 MG TAB PO SCH (18:07)
[2025-06-11] MEDS: ADVAIR HFA 45/21 MCG INHALER INH SCH (20:01)
[2025-06-11 20:05] VITALS: BP 150/83; TEMP 97.3; O2SAT 96
[2025-06-11] MEDS: BACLOFEN 10 MG TAB PO SCH (20:23)
[2025-06-11] MEDS: AMITRIPTYLINE 50MG TAB PO SCH (20:23)
[2025-06-11] MEDS: ceFAZolin SOD 1 GM in DEXTROSE 5% (D5W) ADV/MINI-BAG 50 ML IV SCH (20:23)
[2025-06-11] MEDS: ATORVASTATIN 20 MG TAB PO SCH (20:23)
[2025-06-11] MEDS: ENOXAPARIN 40 MG/0.4 ML SYRINGE (J1650 PER 10MG) SC SCH (20:24)
[2025-06-11] MEDS: NYSTATIN 100,000 UNITS/GM TOPICAL PWD 15 GM TOP SCH (20:25)
[2025-06-12 00:57] VITALS: BP 143/77; TEMP 98.1; O2SAT 99
[2025-06-12] MEDS: ACETAMINOPHEN 500 MG TAB PO PRN (02:28)
[2025-06-12 04:10] VITALS: BP 138/77; TEMP 97.2; O2SAT 97
[2025-06-12 07:07] LABS: BASO # 0.0 10^3/uL (0.0-0.2); BASO % 0.3 % (0.0-1.0); EOS # 0.2 10^3/uL (0.0-0.5); EOS % 1.7 % (0.0-3.0); LYMPH # 1.5 10^3/uL (1.5-5.0); LYMPH % 16.6 % (24.0-44.0); MONO # 0.8 10^3/uL (0.0-0.8); MONO % 8.5 % (2.0-8.0); NEUTROPHILS # 6.4 10^3/uL (1.5-8.5); NEUTROPHILS % 72.1 % (36.0-66.0); PLATELET COUNT, AUTOMATED 151 10^3/uL (150-450)
[2025-06-12 07:26] LABS: CALCIUM LEVEL 8.7 MG/DL (8.5-10.1); CARBON DIOXIDE LEVEL 25 MMOL/L (20-31); CHLORIDE LEVEL 99 MMOL/L (98-107); CREATININE FOR GFR 0.88 MG/DL (0.70-1.30); GLOMERULAR FILTRATION RATE > 90.0 (>56); MAGNESIUM LEVEL 1.6 MG/DL (1.8-2.4); POTASSIUM SERUM 4.0 MMOL/L (3.5-5.1); SODIUM LEVEL 136 MMOL/L (136-145)
[2025-06-12 08:00] VITALS: BP 137/77; TEMP 97.7; O2SAT 95
[2025-06-12] MEDS: dilTIAZem 180 MG **CD** CAPSULE PO SCH (08:24)
[2025-06-12] MEDS: BREXPIPRAZOLE 0.5MG TABLET PO SCH (08:25)
[2025-06-12] MEDS: OLMESARTAN MEDOXOMIL 20 MG TAB PO SCH (08:25)
[2025-06-12] MEDS: LanTUS (INSULIN GLARGINE INJ) 1 UNITS/0.01 ML SC SCH (09:50)
[2025-06-12] MEDS: MAGNESIUM OXIDE 400 MG TAB PO SCH (09:50)
[2025-06-12 12:00] VITALS: BP 106/58; TEMP 97.9; O2SAT 92
[2025-06-12] MEDS: INSULIN LISPRO (NovoLOG) PER UNIT SC ONE (13:00)
[2025-06-12 16:00] VITALS: BP 125/67; TEMP 97.7; O2SAT 96
[2025-06-12 20:54] VITALS: BP 126/67; TEMP 97.9; O2SAT 96
[2025-06-13] VITALS: BP 127/69; TEMP 97.7; O2SAT 97
[2025-06-13 04:00] VITALS: BP 128/69; TEMP 97.3; O2SAT 97
[2025-06-13 06:22] LABS: BASO # 0.0 10^3/uL (0.0-0.2); BASO % 0.3 % (0.0-1.0); EOS # 0.2 10^3/uL (0.0-0.5); EOS % 2.7 % (0.0-3.0); LYMPH # 1.5 10^3/uL (1.5-5.0); LYMPH % 20.3 % (24.0-44.0); MONO # 0.6 10^3/uL (0.0-0.8); MONO % 7.6 % (2.0-8.0); NEUTROPHILS # 5.0 10^3/uL (1.5-8.5); NEUTROPHILS % 68.4 % (36.0-66.0); PLATELET COUNT, AUTOMATED 167 10^3/uL (150-450)
[2025-06-13 06:56] LABS: CALCIUM LEVEL 8.6 MG/DL (8.5-10.1); CARBON DIOXIDE LEVEL 23 MMOL/L (20-31); CHLORIDE LEVEL 101 MMOL/L (98-107); CREATININE FOR GFR 0.83 MG/DL (0.70-1.30); GLOMERULAR FILTRATION RATE > 90.0 (>56); MAGNESIUM LEVEL 1.8 MG/DL (1.8-2.4); POTASSIUM SERUM 4.5 MMOL/L (3.5-5.1); SODIUM LEVEL 136 MMOL/L (136-145)
[2025-06-13 07:09] LABS: C REACTIVE PROTEIN QUANTITATIV 13.23 MG/DL (<1.0)
[2025-06-13 08:00] VITALS: BP 129/67; TEMP 97.9; O2SAT 94
[2025-06-13 08:35] VITALS: BP 129/67
[2025-06-13] MEDS: LanTUS (INSULIN GLARGINE INJ) 1 UNITS/0.01 ML SC ONE (09:41)
[2025-06-13 12:00] VITALS: BP 138/89; TEMP 97.7; O2SAT 94
[2025-06-13] MEDS ORDERED: CEPH500C PO (13:45)
[2025-06-14] MEDS ORDERED: LanTUS (INSULIN GLARGINE INJ) 1 UNITS/0.01 ML SC SCH (09:00)
[2025-06-14] MEDS ORDERED: INSULIN GLARGINE-YFGN 1 UNITS/0.01 ML SC SCH (09:00)
== END 2025-06-13 15:28 | disposition home or self-care (01) | DRG 603 ==
LOC: M ED 12:10 → M ED INP 14:33 → M MSPAV 16:07
PROVIDERS: ADMIT Family Medicine; ATTEND Family Medicine
DX: L03.116 Cellulitis of left lower limb (principal); Z68.42 Body mass index [BMI] 45.0-49.9, adult; E11.621 Type 2 diabetes mellitus with foot ulcer; L97.522 Non-pressure chronic ulcer of other part of left foot with fat layer exposed; E11.65 Type 2 diabetes mellitus with hyperglycemia; G25.81 Restless legs syndrome; G89.29 Other chronic pain; M54.9 Dorsalgia, unspecified; I10 Essential (primary) hypertension; G47.33 Obstructive sleep apnea (adult) (pediatric); J45.909 Unspecified asthma, uncomplicated; E78.5 Hyperlipidemia, unspecified; E66.01 Morbid (severe) obesity due to excess calories; E11.42 Type 2 diabetes mellitus with diabetic polyneuropathy; Z79.84 Long term (current) use of oral hypoglycemic drugs; Z79.899 Other long term (current) drug therapy

== ENCOUNTER → 2025-06-17 | Outpatient (REF) | payer MEDICARE, OTHER, MEDICAID ==
[~2025-06-17] MED LIST changes: +ALBU8.5H INH; +AMIT100TA PO; +BACL10TA2 PO; +CEPH500C PO; +CLON-412 PO; +DILT1TAB7 PO; +DULO1CAP6 PO; +ERGO500029 PO; +ESZO1TAB6 PO; +OLME40TA PO; +PIOG1TAB36 PO; +REXU1TAB2 PO; +SPIR-10 PO
== END ==
LOC: M LAB REF 14:26
PROVIDERS: ATTEND Internal Medicine
DX: M25.532 Pain in left wrist (principal)

== ENCOUNTER → 2025-08-05 | Outpatient (REF) | payer MEDICARE, OTHER, MEDICAID ==
[2025-08-07 07:51] LABS: LDL DIRECT 95 mg/dL (<100)
== END ==
LOC: M LAB REF 14:26
PROVIDERS: ATTEND Internal Medicine
DX: E78.00 Pure hypercholesterolemia, unspecified (principal)

== ENCOUNTER → 2025-08-30 | Outpatient (REF) | payer MEDICARE, MEDICAID ==
[2025-08-30 14:25] LABS: ESTIMATED AVERAGE GLUCOSE 292.0 MG/DL (60-110)
== END ==
LOC: M SFHCWOUN 12:57
PROVIDERS: ATTEND Physician Assistant
DX: E11.621 Type 2 diabetes mellitus with foot ulcer (principal)